=== PATIENT | male | born 1965 | race Caucasian/White ===

== ENCOUNTER 2024-01-28 23:53 | Emergency (ER) | payer OTHER ==
[~2024-01-28] VITALS: Ht 180.3 cm; Wt 76.7 kg
[~2024-01-28 23:53] MED LIST: ALDACTONE100 MG PO; CIPRO500 MG PO; IBUPROFEN600 MG PO; LASIX80 MG PO; MOBIC7.5 MG PO; NORCO 5-325 TA1 EACH PO
--- OUTSIDE RECORDS SUMMARY | 2024-01-29 | XMS ---
PreManage Notification: KIAH MCDUFFIE Security Riprap Placing Supervisor Events No recent Security Events currently on file CRITERIA MET - [facility] - 2 Visits in 30 Days CARE PROVIDERS -, [facility] Dentist: Automation Tester Current [place] PHONE: [phone] Zachery has no Care Guidelines for this patient. Mesha VISIT COUNT (12 MO.) 2 [facility] TOTAL 2 NOTE: Visits indicate total known visits. ED/UCC VISIT TRACKING (12 MO.) 01/28/2024 23:54 KINSEY Youngblood OR TYPE: Emergency COMPLAINT: - ABDOMINAL PAIN 01/22/2024 12:09 KINSEY Youngblood OR TYPE: Emergency COMPLAINT: - ABDOMINAL PAIN DIAGNOSES: - Allergy status to narcotic agent - Essential (primary) hypertension - Hepatic failure, unspecified without coma - Nausea with vomiting, unspecified - Nicotine dependence, unspecified, uncomplicated - Other prison (current) drug therapy - Unspecified abdominal pain - Unspecified cirrhosis of liver - Unspecified viral 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 coma INPATIENT VISIT TRACKING (12 MO.) No inpatient visits to display in this time frame [email or web address]
[2024-01-29] MEDS ORDERED: ondansetron HCL 4 MG/2 ML VIAL IV ONE (00:30)
[2024-01-29] MEDS ORDERED: FAMOTIDINE 20 MG/ 2 ML VIAL IV ONE (00:30)
[2024-01-29] MEDS ORDERED: CEFTRIAXONE/SODIUM CHLORIDE 2 GM/100 ML PIGGYBACK IV ONE (00:30)
[2024-01-29] MEDS ORDERED: HYDROmorphone HCL 1 MG/ML SYR IV PRN (00:30)
[2024-01-29 01:33] LABS: EOSINOPHILS 3.8 % (0-6); HEMATOCRIT 36.9 % (35.0-50.0); HEMOGLOBIN 12.6 g/dL (12.0-18.0); LYMPHOCYTES 9.9 % (24-44); MCHC 34.2 g/dl (30-36); MCV 102.4 fl (81-99); MONOCYTES 14.5 % (0-12); NEUTROPHILS 70.8 % (39-80); PLATELET COUNT 140 K/uL (140-440); RDW 16.1 (10.5-15.0)
[2024-01-29 01:45] LABS: INR 1.44 (0.80-1.30); PROTIME 16.7 Sec (11.2-14.2)
[2024-01-29 01:50] LABS: ALBUMIN 1.9 g/dL (3.4-5.0); ALBUMIN/GLOBULIN RATIO 0.37 (1.1-2.4); ANION GAP 8.8 (7-21); BILIRUBIN, TOTAL 2.5 ng/dL (0.2-1.0); BUN/CREATININE RATIO 16.66 (6.0-28.6); CREATININE, SERUM 0.9 mg/dL (0.70-1.30); POTASSIUM 3.8 mmol/L (3.5-5.1)
[2024-01-29 01:55] LABS: LACTIC ACID, BLOOD 1.4 mmol/L (0.4-2.0)
[2024-01-29] MEDS ORDERED: FUROSEMIDE 40 MG/4 ML VIAL IV ONE (02:45)
[2024-01-29 02:47] LABS: BILIRUBIN, URINE POSITIVE (negative); BLOOD/HGB, URINE LARGE (Negative); KETONE, URINE NEGATIVE (Negative); LEUK ESTERASE, URINE NEGATIVE (negative); NITRITE, URINE NEGATIVE (negative); PH, URINE 6.5 (5-7)
[2024-01-29 03:01] LABS: BACTERIA, URINE NONE SEEN /hpf (negative); CASTS, URINE NONE SEEN \\lpf; CRYSTALS, URINE CALCIUM OXALATE 3+ (0-1+); EPITHELIAL CELLS, URINE 0 /lpf (0-1+)
[2024-01-29 03:02] LABS: COLLECTION TYPE, URINE CLEAN CATCH; REFLEX CULTURE, URINE No (No)
[2024-01-29] MEDS ORDERED: OXYCODONE HCL5 MG PO (03:22)
[2024-01-29] MEDS ORDERED: K-TAB ER20 MEQ PO (03:22)
[2024-01-29] MEDS ORDERED: AMOX TR-K CLV1 EAC1 PO (03:22)
[2024-01-29] MEDS ORDERED: ALDACTONE100 MG PO (03:22)
[2024-01-29] MEDS ORDERED: FUROSEMIDE80 MG PO (03:22)
[2024-01-29] MEDS ORDERED: CONSTULOSE10 GM/15 M PO (03:24)
[2024-01-29 03:53] VITALS: BP 152/93
== END 2024-01-29 03:54 | disposition home or self-care (01) ==
LOC: ED 23:53
PROVIDERS: Internal Medicine
DX: K72.10 Chronic hepatic failure without coma (principal); K70.31 Alcoholic cirrhosis of liver with ascites; J90 Pleural effusion, not elsewhere classified; B19.20 Unspecified viral 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 coma; I10 Essential (primary) hypertension; F17.200 Nicotine dependence, unspecified, uncomplicated; Z88.5 Allergy status to narcotic agent; Z79.899 Other long term (current) drug therapy
CPT/HCPCS: 36415; 71045; 71260; 74160; 74177; 80053; 81001; 82140; 83605; 83690; 85025; 85610; 87040; 99284-25; J0696; J1171; J1940; J2405; Q9967

== ENCOUNTER 2024-01-29 16:26 | Observation (INO) | payer OTHER ==
[~2024-01-29] VITALS: Ht 180.3 cm; Wt 68.4 kg
[~2024-01-29 16:26] MED LIST changes: +AMOX TR-K CLV1 EAC1 PO; +CONSTULOSE10 GM/15 M PO; +FUROSEMIDE80 MG PO; +K-TAB ER20 MEQ PO; +OXYCODONE HCL5 MG PO
--- OUTSIDE RECORDS SUMMARY | 2024-01-29 16:33 | XMS ---
PreManage Notification: KIAH MCDUFFIE Security Bakery Team Member Events No recent Security Events currently on file CRITERIA MET - [facility] - 2 Visits in 30 Days CARE PROVIDERS -, [facility] Dentist: Dot Etcher Current [place] PHONE: [phone] Zachery has no Care Guidelines for this patient. Mesha VISIT COUNT (12 MO.) 3 [facility] TOTAL 3 NOTE: Visits indicate total known visits. ED/C VISIT TRACKING (12 MO.) 01/29/2024 16:27 KINSEY Youngblood OR TYPE: Emergency COMPLAINT: - BACK PAIN 01/28/2024 23:54 KINSEY Youngblood OR TYPE: Emergency COMPLAINT: - ABDOMINAL PAIN 01/22/2024 12:09 KINSEY Youngblood OR TYPE: Emergency COMPLAINT: - ABDOMINAL PAIN DIAGNOSES: - Allergy status to narcotic agent - Essential (primary) hypertension - Hepatic failure, unspecified without coma - Nausea with vomiting, unspecified - Nicotine dependence, unspecified, uncomplicated - Other long term care phlebotomist (current) drug therapy - Unspecified abdominal pain - Unspecified cirrhosis of liver - Unspecified viral 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 coma INPATIENT VISIT TRACKING (12 MO.) No inpatient visits to display in this time frame [email or web address]
[2024-01-29] MEDS ORDERED: OXYCODONE HCL 5 MG TAB PO ONE (17:45)
[2024-01-29] MEDS ORDERED: ALBUMIN HUMAN 25% 100 ML BTL IV ONE (19:45)
[2024-01-29 20:34] LABS: BASOPHILS 1.1 % (0-2); HEMATOCRIT 40.5 % (35.0-50.0); HEMOGLOBIN 13.9 g/dL (12.0-18.0); MCH 35.1 (27-36); MCHC 34.2 g/dl (30-36); MCV 102.8 fl (81-99); NEUTROPHILS 73.9 % (39-80); PLATELET COUNT 156 K/uL (140-440); RBC 3.94 M/ul (4.3-5.7); RDW 16.3 (10.5-15.0)
[2024-01-29 20:49] LABS: ALBUMIN 2.1 g/dL (3.4-5.0); ALBUMIN/GLOBULIN RATIO 0.38 (1.1-2.4); ANION GAP 11.7 (7-21); BILIRUBIN, TOTAL 2.6 ng/dL (0.2-1.0); BUN/CREATININE RATIO 13.18 (6.0-28.6); CALCIUM 8.2 mg/dL (8.5-10.1); CREATININE, SERUM 0.91 mg/dL (0.70-1.30); POTASSIUM 3.7 mmol/L (3.5-5.1); PROTEIN, TOTAL 7.6 g/dL (6.4-8.2)
[2024-01-29] MEDS ORDERED: CEFTRIAXONE/SODIUM CHLORIDE 2 GM/100 ML PIGGYBACK IV ONE (21:00)
[2024-01-29] MEDS ORDERED: AZITHROMYCIN/DEXTROSE 500 MG/250 ML PIGGYBACK IV ONE (21:00)
[2024-01-29 21:12] LABS: INR 1.41 (0.80-1.30); PROTIME 16.4 Sec (11.2-14.2)
[2024-01-29] MEDS ORDERED: MAGNESIUM SULFATE 2 GM/50 ML BAG IV ONE (21:30)
[2024-01-29 21:48] LABS: BILIRUBIN, URINE POSITIVE (negative); BLOOD/HGB, URINE LARGE (Negative); KETONE, URINE NEGATIVE (Negative); LEUK ESTERASE, URINE NEGATIVE (negative); NITRITE, URINE NEGATIVE (negative)
[2024-01-29 22:03] LABS: CRYSTALS, URINE CALCIUM OXALATE 4+ (0-1+); EPITHELIAL CELLS, URINE 0 /lpf (0-1+)
[2024-01-29 22:04] LABS: BACTERIA, URINE NONE SEEN /hpf (negative); CASTS, URINE NONE SEEN \\lpf; COLLECTION TYPE, URINE CLEAN CATCH; REFLEX CULTURE, URINE No (No)
[2024-01-29] MEDS ORDERED: ondansetron HCL 4 MG/2 ML VIAL IV PRN (22:30)
[2024-01-29] MEDS ORDERED: HYDROmorphone HCL 1 MG/ML SYR IV PRN (22:30)
[2024-01-29] MEDS ORDERED: FUROSEMIDE 20 MG/2 ML VIAL IV ONE (22:45)
[2024-01-29 23:26] VITALS: BP 120/77
--- NOTE | 2024-01-29 23:30 | NUR ---
PT ADMITTED TO ROOM 114 VIA STRETCHER. PT REPORTS BEING TOO WEAK TO AMBULATE TO BED SO PT SHUFFLED SELF TO HOSPITAL BED. REPORTS PAIN TO RIGHT SIDE THORACENTESIS PUNCTURE SITE-EXTRUSION ENGINEER JUST ADMINISTERED IV PAIN MED BEFORE TRANSFER. VSS. 2L O2 N/C IN PLACE. LS DIM W/ CRACKLES TO RIGHT BASE. REPORTS SOB AT REST. HRR. BTA, LBM 01/28. VOIDS WNL BUT HAS SOME URGENCY. RAC IV WNL. PT INFORMED OF 1500cc FLUID RESTRICTION. BTA, ABD SLIGHTLY DISTENDED. BANDAID TO RIGHT BACK PUNCTURE SITE CDI. CALL LIGHT WITHIN REACH.
[2024-01-30] VITALS (9 sets, daily range): BP systolic 111–128; BP diastolic 74–89
--- NOTE | 2024-01-30 02:43 | NUR ---
PT SITTING EOB. REPORTS LOWER BACK PAIN-MEDICATED W/ PRN IV DILAUDID 0.5MG. URINAL EMPTIED FOR 1000cc CLEAR YELLOW URINE. CALL LIGHT WITHIN REACH.
--- NOTE | 2024-01-30 03:36 | NUR ---
PT APPEARS ASLEEP. CALL LIGHT WITHIN REACH.
[2024-01-30 06:06] LABS: BASOPHILS 0.8 % (0-2); EOSINOPHILS 2.9 % (0-6); HEMATOCRIT 34.8 % (35.0-50.0); LYMPHOCYTES 11.2 % (24-44); MCHC 34.3 g/dl (30-36); MONOCYTES 11.4 % (0-12); NEUTROPHILS 73.7 % (39-80); PLATELET COUNT 112 K/uL (140-440); RBC 3.42 M/ul (4.3-5.7)
[2024-01-30 06:21] LABS: ALBUMIN 2.1 g/dL (3.4-5.0); ALBUMIN/GLOBULIN RATIO 0.48 (1.1-2.4); ANION GAP 7.5 (7-21); BILIRUBIN, TOTAL 2.2 ng/dL (0.2-1.0); BUN/CREATININE RATIO 15.47 (6.0-28.6); CALCIUM 8.1 mg/dL (8.5-10.1); CREATININE, SERUM 0.84 mg/dL (0.70-1.30); MAGNESIUM 1.9 mg/dL (1.8-2.4); PHOSPHORUS, INORGANIC 3.3 mg/dL (2.5-4.9); POTASSIUM 3.5 mmol/L (3.5-5.1); PROTEIN, TOTAL 6.5 g/dL (6.4-8.2)
--- NOTE | 2024-01-30 06:34 | NUR ---
PT AWAKE, REPORTS NOT SLEEPING WELL OVERNIGHT. PT GIVEN REMOTE TO WATCH TV. QUIET ENVIRONMENT PROMOTED. CALL LIGHT WITHIN REACH.
--- NOTE | 2024-01-30 06:59 | NUR ---
Pt report received from CHRISTIE Morel. Pt is resting supine in bed, A&O watching television. Reports discomfort in his back and chest with deep breathing. Requests a cup of hot tea. Side rails up x4, call light in reach, white board updated.
[2024-01-30] MEDS ORDERED: SPIRONOLACTONE 25 MG TAB PO SCH ×3 (09:00→21:00)
[2024-01-30] MEDS ORDERED: FUROSEMIDE 40 MG TAB PO SCH (09:00)
[2024-01-30] MEDS ORDERED: AZITHROMYCIN 500 MG in DEXTROSE 5% 250 ML IV SCH ×2 (09:00→21:00)
[2024-01-30] MEDS ORDERED: LACTULOSE 20 GM/30 ML CUP PO SCH (09:00)
[2024-01-30] MEDS ORDERED: POTASSIUM CHLORIDE 10 MEQ TABCR PO SCH (09:00)
[2024-01-30] MEDS ORDERED: CEFTRIAXONE/SODIUM CHLORIDE 2 GM/100 ML PIGGYBACK IV SCH ×2 (09:00→21:00)
--- NOTE | 2024-01-30 10:00 | NUR ---
PATIENT TOOK A SHOWER THIS MORNING HE ALSO DID ORAL CARE. NEW GOWN. BROUGHT TWO WARM BLANKETS. PATIENT WENT BACK TO BED.
[2024-01-30] MEDS ORDERED: ondansetron HCL 4 MG/2 ML VIAL IV PRN (11:15)
[2024-01-30] MEDS ORDERED: PHARMACY RENAL DOSE ADJUSTMENT 1 DOSE MISC PO SCH (12:00)
[2024-01-30] MEDS ORDERED: HYDROmorphone HCL 1 MG/ML SYR IV PRN (12:45)
[2024-01-30] MEDS ORDERED: FUROSEMIDE 40 MG/4 ML VIAL IV SCH (13:00)
--- NOTE | 2024-01-30 13:00 | NUR ---
Spoke with Kavita, his friend Carmela that adopted his son, and son. Dr. Gaitan in the room spoke with pt about his understanding of his liver failure. Pt speaks about his pcp and recent hospital admission in [place]. Pt states he would like to get Hepatitis treatment meds as he believes this will help him. Dr. guy kumaruss his fluid build up his thoracentesis in our ER. He discussed with pt fluid is already returning. Pt states he will see Dr. Piedra on Feb 06 to establish care. Plan was discussed for pt to see Dr. Piedra and discuss what he feels is the best plan moving forward. We discussed palliative care through [facility] if pt wants to cont. treatement or comfort care with Hospice if he wants to stop. Pts son (16 yo), patient, and friend are all very tearful. Friends are ready willing for pt to return home tomorrow. Discussed their will be dc instructions for Carmela to follow.
--- NOTE | 2024-01-30 13:15 | NUR ---
Dr. Gaitan and cone sewer Gricelda in with pt and pt's son and son's adoptive mother to discuss plan of care. Pt up to void in toilet, unmeasured, x2 while discussion on going. Pt and family tearful at times. SPO2 while patient ambulating back from toilet was 91% on room air.
--- NOTE | 2024-01-30 13:30 | NUR ---
UR CLINICAL REVIEW: [facility] OBS CRITERIA FOR PLEURAL EFFUSION MODA EOCCO OBS 01/30/24 @ 0943 EMAIL SENT TO ADMISSIONS TO UPDATE REG NO AUTH REQUIRED FOR OBS VISITS PER GUIDELINES DISCHARGE TO HOME WHEN STABLE ANTICAPATE DC IN 24 HRS
--- NOTE | 2024-01-30 15:09 | NUR ---
Advised by Aisha Joshi, that the pt is in the bathroom, currently, and states he is nauseous.
--- NOTE | 2024-01-30 16:35 | NUR ---
RECEIVED REPORT FROM BEENA. PT APPEARS TO BE SLEEPING COMFORTABLY. RESPIRATIONS EVEN AND REGULAR. CALL LIGHT WITHIN REACH.
--- NOTE | 2024-01-30 16:47 | NUR ---
medications reconciled
--- NOTE | 2024-01-30 17:34 | NUR ---
PT IS SITTING UP AT EOB GETTING READY TO EAT DINNER. PT IS A/O, SPEECH CLEAR, RESPIRATIONS EVEN AND REGULAR. PT DENIES NEEDS ATT. CALL LIGHT WITHIN REACH.
--- NOTE | 2024-01-30 19:19 | NUR ---
RECEIVED REPORT FROM CHRISTIE LEMUS. PT RESTING IN BED, WANTS TO USE BR INSTEAD OF URINAL. HAT PLACED IN TOILET FOR I&O'S. NO OTHER NEEDS IDENTIFIED. CALL LIGHT WITHIN REACH.
--- NOTE | 2024-01-30 20:00 | NUR ---
PT RESTING IN BED. FAMILY AT BEDSIDE. REPORTS RIGHT CHEST AND LEFT BACK PAIN, MEDICATED W/ PRN IV DILAUDID PER EMAR. VSS. SOME SOB, LEGGETT. LS DIM UPPERS, CRACKLES BASES. ON RA. HRR, TELE IN PLACE. BTA, REPORTS FEELING CONSTIPATED, OFFERED MED OR OATMEAL, PT DECLINED AT THIS TIME. USING BR FOR VOIDING, REPORTS URGENCY. BLE 1+ EDEMA, BASELINE N/T. SKIN DRY AND FLAKY, LOTION PROVIDED. RAC IV WNL. CALL LIGHT WITHIN REACH.
[2024-01-30] MEDS ORDERED: POLYETHYLENE GLYCOL 3350 1 PACKET PO SCH (21:00)
[2024-01-30] MEDS ORDERED: SENNOSIDES/DOCUSATE 1 EA TAB PO SCH (21:00)
--- NOTE | 2024-01-30 21:08 | NUR ---
PT MEDICATED W/ PRN MIRALAX AND SENNA. ON PHONE W/ FRIENDS. DENIES ANY OTHER NEEDS.
--- NOTE | 2024-01-30 22:58 | NUR ---
PT AWAKE, VISITING W/ SON AT BEDSIDE. DENIES ANY NEEDS.
[2024-01-31] VITALS (10 sets, daily range): BP systolic 101–133; BP diastolic 61–80
--- NOTE | 2024-01-31 00:44 | NUR ---
PT MEDICATED W/ PRN IV DILAUDID FOR C/O HEADACHE. PT'S SON ASLEEP AT BEDSIDE. NO OTHER NEEDS IDENTIFIED.
--- NOTE | 2024-01-31 01:04 | NUR ---
GUM SPRAYER OBTAINED VITALS AND I&O. PT STATES NO NEEDS AT THIS TIME. CALL LIGHT WITHIN REACH.
--- NOTE | 2024-01-31 02:58 | NUR ---
PT SLEEPING SOUNDLY ON COUCH IN ROOM. FAMILY ASLEEP IN RECLINER.
--- NOTE | 2024-01-31 05:01 | NUR ---
PT SLEEPING SOUNDLY. APPEARS COMFORTABLE. CALL LIGHT WITHIN REACH.
[2024-01-31 05:22] LABS: EOSINOPHILS 6.3 % (0-6); HEMATOCRIT 34.9 % (35.0-50.0); HEMOGLOBIN 12.2 g/dL (12.0-18.0); LYMPHOCYTES 10.7 % (24-44); MCH 35.5 (27-36); MCHC 34.9 g/dl (30-36); MCV 101.7 fl (81-99); MONOCYTES 15.2 % (0-12); NEUTROPHILS 66.8 % (39-80); PLATELET COUNT 125 K/uL (140-440); RBC 3.43 M/ul (4.3-5.7); RDW 15.7 (10.5-15.0)
[2024-01-31 05:31] LABS: INR 1.51 (0.80-1.30); PARTIAL THROMBOPLASTIN TIME 32.1 Sec (22.9-41.3); PROTIME 17.4 Sec (11.2-14.2)
[2024-01-31 05:34] LABS: MAGNESIUM 1.4 mg/dL (1.8-2.4); PHOSPHORUS, INORGANIC 3.6 mg/dL (2.5-4.9)
--- NOTE | 2024-01-31 06:14 | NUR ---
COMPOSITE MECHANIC OBTAINED VITALS AND I&O. PT STATES NO NEEDS AT THIS TIME. CALL LIGHT WITHIN REACH.
--- NOTE | 2024-01-31 06:50 | NUR ---
PT SOUND ASLEEP. APPEARS COMFORTABLE. FAMILY ASLEEP AT BEDSIDE.
--- NOTE | 2024-01-31 07:02 | NUR ---
Pt report received from CHRISTIE Morel. Pt is up to toilet. Requests a clean gown which was provided. Pt requests a cup of hot water and tea which was provided and pt was warned that the water is extremely hot. He verbalized understanding. Pt Assessment done at this time. Call light in reach, white board updated.
[2024-01-31 07:59] LABS: ALBUMIN 2.2 g/dL (3.4-5.0); ALBUMIN/GLOBULIN RATIO 0.49 (1.1-2.4); ANION GAP 6.5 (7-21); BILIRUBIN, TOTAL 2.8 ng/dL (0.2-1.0); BUN/CREATININE RATIO 13.33 (6.0-28.6); CALCIUM 8.2 mg/dL (8.5-10.1); CREATININE, SERUM 0.9 mg/dL (0.70-1.30); POTASSIUM 3.5 mmol/L (3.5-5.1); PROTEIN, TOTAL 6.7 g/dL (6.4-8.2)
[2024-01-31] MEDS ORDERED: MAGNESIUM SULFATE 2 GM/50 ML BAG IV SCH (09:00)
--- NOTE | 2024-01-31 09:05 | NUR ---
In with pt for med administration per emar. Pt up in bathroom. All meds administered except for mag sulfate as the pt is requesting to shower before he is connected to the IV Pole. IV site covered with zip lock bag and Tele removed (ccu notified) while pt showering. Instructed pt to use his call light when he is finished so I can administered his IV meds. He verbalized understanding. Pt's son in room.
--- NOTE | 2024-01-31 09:29 | NUR ---
While pt up in shower, he states he is experiencing nausea, but no vomiting. States he feels it's from the PO meds.
--- NOTE | 2024-01-31 10:23 | NUR ---
Pt back to bed after shower. Tele leads re-applied. IV patent, MgSO4 started via IV pump. pt son in room. Call light in reach.
[2024-01-31 18:26] LABS: AMPHETAMINES, URINE NEGATIVE (NEGATIVE); BARBITURATES, URINE NEGATIVE (NEGATIVE); BENZODIAZEPINE, URINE NEGATIVE (NEGATIVE); BUPRENORPHINE, URINE NEGATIVE (NEGATIVE); CANNABINOID, URINE POSITIVE (NEGATIVE); COCAINE, URINE NEGATIVE (NEGATIVE); ECSTASY, URINE NEGATIVE (NEGATIVE); FENTANYL, URINE NEGATIVE (NEGATIVE); METHADONE, URINE NEGATIVE (NEGATIVE); OPIATES, URINE NEGATIVE (NEGATIVE); OXYCODONE, URINE POSITIVE (NEGATIVE); PHENCYCLIDINE, URINE NEGATIVE (NEGATIVE)
--- NOTE | 2024-01-31 19:41 | NUR ---
RECEIVED REPORT FROM CHRISTIE HARGROVE. PT AWAKE, SNACKING. PT'S SON AT BEDSIDE. DENIES ANY FURTHER NEEDS.
--- NOTE | 2024-01-31 20:00 | NUR ---
PT RESTING IN BED, TALKING ON PHONE W/ FRIEND. SON AT BEDSIDE. VSS. REPORTS LOWER BACK PAIN 5/10, DECLINED OFFER OF PAIN MED R/T CURRENT CONSTIPATION. PT ON RA, LSC DIM TO RIGHT POST BASE. OCC NPC NOTED. HRR, TELE IN PLACE. 1+ BLE EDEMA. BTA, ABD DISTENDED AND FIRM. FEELS CONSTIPATED, BOWEL MEDS ADMINISTERED PER EMAR. LBM 01/28. N/T TO BLE UNCHANGED. RAC SL WNL. IND TO BR TO VOID. CALL LIGHT WITHIN REACH.
--- NOTE | 2024-01-31 22:00 | NUR ---
PT ASLEEP, APPEARS COMFORTABLE. SON AT BEDSIDE.
--- NOTE | 2024-01-31 22:02 | NUR ---
PT INQUIRED ABOUT FLUID RESTRICTION-INFORMED FLUID RESTRICTION STILL IN PLACE. REMINDED PT OF UPCOMING NPO STATUS AT MIDNIGHT. NO FURTHER NEEDS IDENTIFIED.
[2024-02-01] VITALS (9 sets, daily range): BP systolic 105–123; BP diastolic 74–79
--- NOTE | 2024-02-01 00:17 | NUR ---
PT SLEEPING, SON AT BEDSIDE. PT IS NOW NPO FOR PROCEDURE TOMORROW.
--- NOTE | 2024-02-01 01:57 | NUR ---
REGISTERED NURSE AMBULATORY OBTAINED VITALS AND OUTPUT. PT STATES NO NEEDS AT THIS TIME. CALL LIGHT WITHIN REACH.
--- NOTE | 2024-02-01 01:57 | NUR ---
PT SLEEPING SOUNDLY. FAMILY ASLEEP AT BEDSIDE.
--- NOTE | 2024-02-01 04:12 | NUR ---
PT SLEEPING SOUNDLY. APPEARS COMFORTABLE. CALL LIGHT WITHIN REACH.
--- NOTE | 2024-02-01 06:53 | NUR ---
MUD GRINDER OBTAINED VITALS AND OUTPUT. PT STATES NO NEEDS AT THIS TIME. CALL LIGHT WITHIN REACH.
--- NOTE | 2024-02-01 07:02 | NUR ---
Pt report received from CHRISTIE Morel. Pt is in bed, resting on his right side, television on, A&O. Pt asks when he is to have the abdominal u/s. Advised pt that I will see if I can find out. Call light in reach, pt denies any needs at this time. White board updated.
--- NOTE | 2024-02-01 07:44 | NUR ---
PC to Dr. Martinez to seek clarification for the type of abdominal u/s he would like for this pt (limited or complete). Dr. Martinez advised the limited u/s would suffice as he is looking for ascites. Requested v/o to change IV pain meds to PO. Obtained v/o to change IV dilaudid to PO Dilaudid 2 to 4mg Q6P. Order repeated back.
[2024-02-01] MEDS ORDERED: HYDROmorphone HCL 2 MG TAB PO PRN (08:00)
--- NOTE | 2024-02-01 08:26 | NUR ---
PATIENT IN BED AT THIS TIME. DIESEL POWERPLANT MECHANIC HELPER WENT INTO PATIENTS ROOM FOR HOURLY ROUNDS. ULTRASOUND COMING INTO ROOM AT THIS TIME. CALL LIGHT WITHIN REACH, NO FURTHER NEEDS AT THIS TIME.
[2024-02-01 09:02] LABS: BASOPHILS 0.6 % (0-2); EOSINOPHILS 3.9 % (0-6); HEMOGLOBIN 13.5 g/dL (12.0-18.0); LYMPHOCYTES 8.7 % (24-44); MCHC 34.6 g/dl (30-36); MONOCYTES 11.6 % (0-12); NEUTROPHILS 75.2 % (39-80); PLATELET COUNT 144 K/uL (140-440); RBC 3.87 M/ul (4.3-5.7); RDW 15.6 (10.5-15.0)
[2024-02-01 09:11] LABS: BUN/CREATININE RATIO 14.94 (6.0-28.6); CALCIUM 8.7 mg/dL (8.5-10.1); CREATININE, SERUM 0.87 mg/dL (0.70-1.30); MAGNESIUM 1.6 mg/dL (1.8-2.4)
--- NOTE | 2024-02-01 10:32 | NUR ---
PATIENT IN BED AT THIS TIME. OCCUPATIONAL HEALTH NURSING DIRECTOR CHARTED VITALS AND I&O'S. CALL LIGHT WITHIN REACH, NO FURTHER NEEDS AT THIS TIME.
[2024-02-01] MEDS ORDERED: MAGNESIUM SULFATE 2 GM/50 ML BAG IV ONE (12:15)
[2024-02-01] MEDS ORDERED: AZITHROMYCIN500 MG PO (12:23)
--- NOTE | 2024-02-01 14:00 | NUR ---
In with pt for review of discharge paperwork. IV DC'd at this time. Pt's son arrived. Reviewed discharge paperwork and education with pt and pt's son, questions answered, pt signed discharge form. Pt VSS, pt requested to take a shower prior to leaving. Encouraged pt to use call light when he is ready to be taken to his ride.
--- NOTE | 2024-02-01 14:03 | NUR ---
PATIENT IN BED AT THIS TIME. SOCIAL WELFARE CLERK CHARTED VITALS AND I&O'S. CALL LIGHT WITHIN REACH, NO FURTHER NEEDS AT THIS TIME.
[2024-02-23] MEDS ORDERED: AMOX TR-K CLV1 EAC1 PO (06:31)
== END 2024-02-01 15:00 | disposition home or self-care (01) ==
LOC: ED 16:26 → MS 16:28
PROVIDERS: Emergency Medicine; Family Medicine; Student in an Organized Health Care Education/Training Program; ADMIT Family Medicine; ATTEND Family Medicine
DX: J96.01 Acute respiratory failure with hypoxia (principal); J90 Pleural effusion, not elsewhere classified; J18.9 Pneumonia, unspecified organism; K72.10 Chronic hepatic failure without coma; E83.42 Hypomagnesemia; I10 Essential (primary) hypertension; Z87.891 Personal history of nicotine dependence; Z79.899 Other long term (current) drug therapy; Z88.5 Allergy status to narcotic agent
CPT/HCPCS: 32554; 36415; 71045; 71046; 76604; 76705; 80048; 80053; 80307; 81001; 83605; 83735; 84100; 85025; 85610; 85730; 87040; 87070; 87205; 94760; 96366; 96375; 96376; 99285-25; A9270; G0378; J0456; J0696; J1171; J1940; J2405; J3475; P9047

== ENCOUNTER 2024-02-09 10:57 | Emergency (ER) | payer OTHER ==
[~2024-02-09] VITALS: Ht 180.3 cm; Wt 71.7 kg
[~2024-02-09 10:57] MED LIST changes: +AZITHROMYCIN500 MG PO
--- OUTSIDE RECORDS SUMMARY | 2024-02-09 11:01 | XMS ---
PreManage Notification: KIAH MCDUFFIE Security Head Teacher Events No recent Security Events currently on file CRITERIA MET - [facility] - 2 Visits in 30 Days CARE PROVIDERS -, [facility] Dentist: Elementary Science Teacher Current [place] PHONE: [phone] Zachery has no Care Guidelines for this patient. Mesha VISIT COUNT (12 MO.) [address] [place] [address] TOTAL 4 NOTE: Visits indicate total known visits. ED/UCC VISIT TRACKING (12 MO.) 02/09/2024 10:58 KINSEY Youngblood OR TYPE: Emergency COMPLAINT: - SOB,STOMACH PAIN 01/29/2024 16:27 KINSEY Youngblood OR TYPE: Emergency COMPLAINT: - BACK PAIN 01/28/2024 23:54 KINSEY Youngblood OR TYPE: Emergency COMPLAINT: - ABDOMINAL PAIN DIAGNOSES: - Alcoholic cirrhosis of liver with ascites - Allergy status to narcotic agent - Chronic hepatic failure without coma - Essential (primary) hypertension - Nicotine dependence, unspecified, uncomplicated - Other [facility] ([facility] drug therapy - Pleural effusion, not elsewhere classified - Unspecified abdominal pain - Unspecified viral 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 coma 01/22/2024 12:09 KINSEY Youngblood OR TYPE: Emergency COMPLAINT: - ABDOMINAL PAIN DIAGNOSES: - Allergy status to narcotic agent - Essential (primary) hypertension - Hepatic failure, unspecified without coma - Nausea with vomiting, unspecified - Nicotine dependence, unspecified, uncomplicated - Other watermelon inspector (current) drug therapy - Unspecified abdominal pain - Unspecified cirrhosis of liver - Unspecified viral 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 coma INPATIENT VISIT TRACKING (12 MO.) 01/29/2024 16:28 KINSEY Youngblood OR TYPE: Observation COMPLAINT: - HYPOXIC RESPIRATORY FAILURE, ESLD, HYPOMAGNESEMIA [email or web address]
[2024-02-09] MEDS ORDERED: LACTULOSE10 GM/151 PO (11:17)
[2024-02-09 11:37] LABS: BASOPHILS 0.7 % (0-2); HEMATOCRIT 39.1 % (35.0-50.0); HEMOGLOBIN 13.6 g/dL (12.0-18.0); MCH 35.1 (27-36); MCHC 34.7 g/dl (30-36); MCV 101.2 fl (81-99); MONOCYTES 11.2 % (0-12); NEUTROPHILS 69.1 % (39-80); PLATELET COUNT 137 K/uL (140-440); RBC 3.87 M/ul (4.3-5.7); RDW 15.1 (10.5-15.0)
[2024-02-09 11:48] LABS: ALBUMIN 2.1 g/dL (3.4-5.0); ALBUMIN/GLOBULIN RATIO 0.4 (1.1-2.4); ANION GAP 10.6 (7-21); BILIRUBIN, TOTAL 2.6 ng/dL (0.2-1.0); BUN/CREATININE RATIO 19.27 (6.0-28.6); CALCIUM 8.6 mg/dL (8.5-10.1); CREATININE, SERUM 0.83 mg/dL (0.70-1.30); MAGNESIUM 1.6 mg/dL (1.8-2.4); POTASSIUM 4.6 mmol/L (3.5-5.1); PROTEIN, TOTAL 7.4 g/dL (6.4-8.2)
[2024-02-09 12:00] LABS: BILIRUBIN, URINE NEGATIVE (negative); BLOOD/HGB, URINE LARGE (Negative); KETONE, URINE NEGATIVE (Negative); LEUK ESTERASE, URINE NEGATIVE (negative); NITRITE, URINE NEGATIVE (negative)
[2024-02-09 12:05] LABS: EPITHELIAL CELLS, URINE 0 /lpf (0-1+)
[2024-02-09 12:07] LABS: CRYSTALS, URINE CALCIUM OXALATE 2+ (0-1+)
[2024-02-09 12:08] LABS: BACTERIA, URINE NONE SEEN /hpf (negative); CASTS, URINE NONE SEEN \\lpf; COLLECTION TYPE, URINE CLEAN CATCH; REFLEX CULTURE, URINE No (No)
[2024-02-09 12:50] LABS: INR 1.33 (0.80-1.30); PROTIME 16.1 Sec (11.2-14.2)
[2024-02-09 15:19] VITALS: BP 115/87
--- NOTE | 2024-02-09 19:52 | EKG ---
[facility] [address] [place], [place] [address] Signed Normal sinus rhythm Normal ECG No previous ECGs available Confirmed by Lisa Michaels MD ([id number]) on 02/09/2024 7:52:13 PM Electronically Signed By: LISA MICHAELS MD 02/09/241951 PATIENT NAME: KIAH MCDUFFIE Electrocardiogram DATE OF : 63 PHYSICIAN: LISA MICHAELS MD REPORT #: [id number] REPORT IS CONFIDENTIAL AND NOT TO BE RELEASED WITHOUT AUTHORIZATION
== END 2024-02-09 15:19 | disposition home or self-care (01) ==
LOC: ED 10:57
PROVIDERS: Emergency Medicine
DX: R10.9 Unspecified abdominal pain (principal); K80.20 Calculus of gallbladder without cholecystitis without obstruction; J90 Pleural effusion, not elsewhere classified; K72.10 Chronic hepatic failure without coma; I10 Essential (primary) hypertension; F17.200 Nicotine dependence, unspecified, uncomplicated; Z88.5 Allergy status to narcotic agent; Z79.899 Other long term (current) drug therapy
CPT/HCPCS: 36415; 71260; 74177; 80053; 81001; 83690; 83735; 83880; 84484; 85025; 85610; 93005; 93010; 99285-25; Q9967

== ENCOUNTER 2024-02-17 09:45 | Emergency (ER) | payer OTHER ==
[~2024-02-17] VITALS: Ht 180.3 cm; Wt 78.2 kg
[~2024-02-17 09:45] MED LIST changes: +LACTULOSE10 GM/151 PO
--- OUTSIDE RECORDS SUMMARY | 2024-02-17 09:46 | XMS ---
PreManage Notification: KIAH MCDUFFIE Security Dry Man Events No recent Security Events currently on file CRITERIA MET - [facility] - 2 Visits in 30 Days CARE PROVIDERS -, [facility] Dentist: Spine Nurse Current [place] PHONE: [phone] Zachery has no Care Guidelines for this patient. Mesha VISIT COUNT (12 MO.) [address] [place] [address] TOTAL 5 NOTE: Visits indicate total known visits. ED/C VISIT TRACKING (12 MO.) 02/17/2024 09:45 KINSEY Youngblood OR TYPE: Emergency COMPLAINT: - TROUBLE BREATHING 02/09/2024 10:58 KINSEY Younbglood OR TYPE: Emergency COMPLAINT: - SOB,STOMACH PAIN DIAGNOSES: - Allergy status to narcotic agent - Calculus of gallbladder without cholecystitis without obstruction - Chronic hepatic failure without coma - Essential (primary) hypertension - Nicotine dependence, unspecified, uncomplicated - Other [facility] (current) drug therapy - Pleural effusion, not elsewhere classified - Unspecified abdominal pain 01/29/2024 16:27 KINSEY Youngblood OR TYPE: Emergency COMPLAINT: - BACK PAIN 01/28/2024 23:54 KINSEY Youngblood OR TYPE: Emergency COMPLAINT: - ABDOMINAL PAIN DIAGNOSES: - Alcoholic cirrhosis of liver with ascites - Allergy status to narcotic agent - Chronic hepatic failure without coma - Essential (primary) hypertension - Nicotine dependence, unspecified, uncomplicated - Other [facility] (current) drug therapy - Pleural effusion, not elsewhere classified - Unspecified abdominal pain - Unspecified viral 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 coma 01/22/2024 12:09 KINSEY Youngblood OR TYPE: Emergency COMPLAINT: - ABDOMINAL PAIN DIAGNOSES: - Allergy status to narcotic agent - Essential (primary) hypertension - Hepatic failure, unspecified without coma - Nausea with vomiting, unspecified - Nicotine dependence, unspecified, uncomplicated - Other superintendent marine oil terminal (current) drug therapy - Unspecified abdominal pain - Unspecified cirrhosis of liver - Unspecified viral 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 coma INPATIENT VISIT TRACKING (12 MO.) 01/29/2024 16:28 KINSEY Youngblood OR TYPE: Observation COMPLAINT: - HYPOXIC RESPIRATORY FAILURE, ESLD, HYPOMAGNESEMIA DIAGNOSES: - Acute respiratory failure with hypoxia - Allergy status to narcotic agent - Chronic hepatic failure without coma - Essential (primary) hypertension - Hypomagnesemia - Nicotine dependence, unspecified, uncomplicated - Other superintendent marine oil terminal (current) drug therapy - Personal history of nicotine dependence - Pleural effusion, not elsewhere classified - Pneumonia, unspecified organism [email or web address]
[2024-02-17] MEDS ORDERED: methylPREDNISolone SOD SUCC 125 MG/2 ML VIAL IV ONE (10:15)
[2024-02-17] MEDS ORDERED: SPIRONOLACTONE 25 MG TAB PO ONE (10:15)
[2024-02-17] MEDS ORDERED: FUROSEMIDE 40 MG/4 ML VIAL IV ONE (10:15)
[2024-02-17] MEDS ORDERED: ALBUTEROL/IPRATROPIUM 3 ML NEB INH ONE (10:15)
[2024-02-17 11:27] LABS: INFLUENZA B NAA NEGATIVE (NEGATIVE); RESPIRATORY SYNCYTIAL VIR NAA NEGATIVE (NEGATIVE)
[2024-02-17] MEDS ORDERED: FUROSEMIDE 40 MG TAB PO ONE (11:30)
[2024-02-17] MEDS ORDERED: predniSONE 20 MG TAB PO ONE (11:30)
[2024-02-17 11:42] LABS: ALBUMIN/GLOBULIN RATIO 0.38 (1.1-2.4); ANION GAP 7.2 (7-21); BILIRUBIN, TOTAL 2.3 ng/dL (0.2-1.0); BUN/CREATININE RATIO 16.25 (6.0-28.6); CREATININE, SERUM 0.8 mg/dL (0.70-1.30); MAGNESIUM 1.7 mg/dL (1.8-2.4); POTASSIUM 4.2 mmol/L (3.5-5.1); PROTEIN, TOTAL 7.3 g/dL (6.4-8.2)
[2024-02-17 11:47] LABS: CALCIUM 8.3 mg/dL (8.5-10.1)
[2024-02-17 11:49] LABS: BASOPHILS 0.9 % (0-2); EOSINOPHILS 8.6 % (0-6); HEMATOCRIT 40.5 % (35.0-50.0); HEMOGLOBIN 14.2 g/dL (12.0-18.0); LYMPHOCYTES 16.7 % (24-44); MCH 35.6 (27-36); MCV 101.6 fl (81-99); MONOCYTES 14.4 % (0-12); NEUTROPHILS 59.4 % (39-80); PLATELET COUNT 100 K/uL (140-440); RBC 3.98 M/ul (4.3-5.7); RDW 15.3 (10.5-15.0)
[2024-02-17] MEDS ORDERED: VENTOLIN HFA18 GM INH (12:25)
[2024-02-17] MEDS ORDERED: PREDNISONE20 MG PO (12:25)
[2024-02-17 12:30] VITALS: BP 124/83
== END 2024-02-17 12:30 | disposition home or self-care (01) ==
LOC: ED 09:45
PROVIDERS: Emergency Medicine
DX: R06.02 Shortness of breath (principal); K72.10 Chronic hepatic failure without coma; J90 Pleural effusion, not elsewhere classified; J98.9 Respiratory disorder, unspecified; I10 Essential (primary) hypertension; F17.200 Nicotine dependence, unspecified, uncomplicated; Z88.5 Allergy status to narcotic agent; Z79.899 Other long term (current) drug therapy; Z11.52 Encounter for screening for COVID-19
CPT/HCPCS: 36415; 71045; 80053; 82140; 83735; 85025; 87502; 94640; 99285-25; J7512; U0002

== ENCOUNTER 2024-02-22 20:49 | Emergency (ER) | payer OTHER ==
[~2024-02-22] VITALS: Ht 180.3 cm; Wt 78.4 kg
[~2024-02-22 20:49] MED LIST changes: +PREDNISONE20 MG PO; +VENTOLIN HFA18 GM INH
--- OUTSIDE RECORDS SUMMARY | 2024-02-22 20:56 | XMS ---
PreManage Notification: KIAH MCDUFFIE Security Picture Engraver Events No recent Security Events currently on file CRITERIA MET - 6 ED Visits in 6 Months - [facility] - 2 Visits in 30 Days CARE PROVIDERS -, [facility] Dentist: Sander Machine Current [place] PHONE: [phone] Zachery has no Care Guidelines for this patient. Mesha VISIT COUNT (12 MO.) 6 [facility] TOTAL 6 NOTE: Visits indicate total known visits. ED/UCC VISIT TRACKING (12 MO.) 02/22/2024 20:49 KINSEY Youngblood OR TYPE: Emergency COMPLAINT: - DIFFICULTY BREATHING 02/17/2024 09:45 KINSEY Youngblood OR TYPE: Emergency COMPLAINT: - TROUBLE BREATHING DIAGNOSES: - Allergy status to narcotic agent - Chronic hepatic failure without coma - Encounter for screening for COVID-19 - Essential (primary) hypertension - Nicotine dependence, unspecified, uncomplicated - Other long term care administrator (current) drug therapy - Pleural effusion, not elsewhere classified - Respiratory disorder, unspecified - Shortness of breath 02/09/2024 10:58 KINSEY Youngblood OR TYPE: Emergency COMPLAINT: - SOB,STOMACH PAIN DIAGNOSES: - Allergy status to narcotic agent - Calculus of gallbladder without cholecystitis without obstruction - Chronic hepatic failure without coma - Essential (primary) hypertension - Nicotine dependence, unspecified, uncomplicated - Other [facility] (current) drug therapy - Pleural effusion, not [...] - Nicotine dependence, unspecified, uncomplicated - Other [facility] (current) drug therapy - Pleural effusion, not [...] unspecified, uncomplicated - Other long term care administrator (current) drug therapy - Unspecified abdominal pain [...] unspecified, uncomplicated - Other long term care administrator (current) drug therapy - Personal history of nicotine dependence - Pleural effusion, not elsewhere classified - Pneumonia, unspecified organism [email or web address]
[2024-02-22 21:49] LABS: BASOPHILS 0.4 % (0-2); EOSINOPHILS 11.9 % (0-6); HEMATOCRIT 38.3 % (35.0-50.0); HEMOGLOBIN 13.1 g/dL (12.0-18.0); LYMPHOCYTES 11.5 % (24-44); MCH 34.8 (27-36); MCHC 34.1 g/dl (30-36); MONOCYTES 13.3 % (0-12); NEUTROPHILS 62.9 % (39-80); PLATELET COUNT 106 K/uL (140-440); RBC 3.75 M/ul (4.3-5.7); RDW 15.4 (10.5-15.0)
[2024-02-22 22:11] LABS: ALBUMIN 1.8 g/dL (3.4-5.0); ALBUMIN/GLOBULIN RATIO 0.39 (1.1-2.4); ANION GAP 10.7 (7-21); BUN/CREATININE RATIO 12.5 (6.0-28.6); CALCIUM 8.2 mg/dL (8.5-10.1); CREATININE, SERUM 0.8 mg/dL (0.70-1.30); POTASSIUM 3.7 mmol/L (3.5-5.1); PROTEIN, TOTAL 6.4 g/dL (6.4-8.2)
[2024-02-22 22:14] LABS: INFLUENZA B NAA NEGATIVE (NEGATIVE); RESPIRATORY SYNCYTIAL VIR NAA NEGATIVE (NEGATIVE)
[2024-02-22] MEDS ORDERED: SPIRONOLACTONE 25 MG TAB PO ONE (23:15)
[2024-02-22] MEDS ORDERED: FUROSEMIDE 40 MG TAB PO ONE (23:15)
[2024-02-22 23:18] LABS: INR 1.4 (0.80-1.30); PROTIME 16.7 Sec (11.2-14.2)
[2024-02-23] MEDS ORDERED: OXYCODONE HCL 5 MG TAB PO ONE (06:00)
[2024-02-23 06:17] VITALS: BP 134/106
[2024-02-23 06:34] LABS: APPEARANCE, BODY FLUID YELLOW, CLEAR
[2024-02-23 06:38] LABS: MONONUCLEAR CELLS, BODY FLUID 48; RBC, BODY FLUID 129; SOURCE, BODY FLUID R thorocentesis; WBC, BODY FLUID 128
[2024-02-23 06:39] LABS: PMNS, BODY FLUID 52
[2024-02-24 18:57] LABS: GLUCOSE FLUID SOURCE Thoracentesis (()); GLUCOSE,BODY FLUID 101 mg/dL (()); LACTATE DEHYDROGENASE TOTAL,BF 63 U/L (()); LDH FLUID SOURCE Thoracentesis (())
== END 2024-02-23 06:15 | disposition home or self-care (01) ==
LOC: ED 20:49
PROVIDERS: Internal Medicine
DX: K70.31 Alcoholic cirrhosis of liver with ascites (principal); J91.8 Pleural effusion in other conditions classified elsewhere; I10 Essential (primary) hypertension; F17.200 Nicotine dependence, unspecified, uncomplicated; Z88.5 Allergy status to narcotic agent; Z79.52 Long term (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 of systemic steroids; Z79.899 Other long term (current) drug therapy
CPT/HCPCS: 32555; 36415; 71045; 71046; 80053; 82140; 82945; 85025; 85610; 87070; 87075; 87205; 87502; 89051; 99285-25; A9270; U0002

== ENCOUNTER 2024-03-07 12:55 | Emergency (ER) | payer OTHER ==
[~2024-03-07] VITALS: Ht 180.3 cm; Wt 71.7 kg
--- OUTSIDE RECORDS SUMMARY | 2024-03-07 13:02 | XMS ---
PreManage Notification: KIAH MCDUFFIE Security Electrophysiology Technician Events No recent Security Events currently on file CRITERIA MET - 6 ED Visits in 6 Months - [facility] - 2 Visits in 30 Days CARE PROVIDERS -, [facility] Dentist: Butt Trimmer Current [place] PHONE: [phone] [facility] Current FAMILY PHONE: [phone] Zachery has no Care Guidelines for this patient. EYulisa VISIT COUNT (12 MO.) [address] [place] [address] TOTAL 7 NOTE: Visits indicate total known visits. ED/UCC VISIT TRACKING (12 MO.) 03/07/2024 12:55 KINSEY Youngblood OR TYPE: Emergency COMPLAINT: - ABDOMINAL PAIN 02/22/2024 20:49 KINSEY Youngblood OR TYPE: Emergency COMPLAINT: - DIFFICULTY BREATHING DIAGNOSES: - Alcoholic cirrhosis of liver with ascites - Allergy status to narcotic agent - Essential (primary) hypertension - terminal block assembler (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 of systemic steroids - Nicotine dependence, unspecified, uncomplicated - Other ascites - Other skilled nursing (current) drug therapy - Pleural effusion in other conditions classified elsewhere - Shortness of breath - Unspecified cirrhosis of liver 02/17/2024 09:45 KINSEY Youngblood OR TYPE: Emergency COMPLAINT: - TROUBLE BREATHING DIAGNOSES: - Allergy status to narcotic agent - Chronic hepatic failure without coma - Encounter for screening for COVID-19 - Essential (primary) hypertension - Nicotine dependence, unspecified, uncomplicated - Other technician terminal and repeater (current) drug therapy - Pleural effusion, not elsewhere classified - Respiratory disorder, unspecified - Shortness of breath 02/09/2024 10:58 KINSEY Youngblood OR TYPE: Emergency COMPLAINT: - SOB,STOMACH PAIN DIAGNOSES: - Allergy status to narcotic agent - Calculus of gallbladder without cholecystitis without obstruction - Chronic hepatic failure without coma - Essential (primary) hypertension - Nicotine dependence, unspecified, uncomplicated - Other technician terminal and repeater (current) drug therapy - Pleural effusion, not [...] - Nicotine dependence, unspecified, uncomplicated - Other technician terminal and repeater (current) drug therapy - Pleural effusion, not elsewhere classified - Unspecified abdominal pain - Unspecified viral 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 coma 01/22/2024 12:09 KINSEY Youngblood OR TYPE: Emergency COMPLAINT: - ABDOMINAL PAIN DIAGNOSES: - Allergy status to narcotic agent - Essential (primary) hypertension - Hepatic failure, unspecified without coma - Nausea with vomiting, unspecified - Nicotine dependence, unspecified, uncomplicated - Other skilled nursing (current) drug therapy - Unspecified abdominal pain [...] - Nicotine dependence, unspecified, uncomplicated - Other skilled nursing (current) drug therapy - Personal history of nicotine dependence - Pleural effusion, not elsewhere classified - Pneumonia, unspecified organism [email or web address]
[2024-03-07] MEDS ORDERED: HYDROmorphone HCL 1 MG/ML SYR IV ONE (13:45)
[2024-03-07] MEDS ORDERED: SODIUM CHLORIDE 0.9% 1,000 ML IV ONE (13:45)
[2024-03-07] MEDS ORDERED: ondansetron HCL 4 MG/2 ML VIAL IV ONE (13:45)
[2024-03-07 14:01] LABS: BASOPHILS 0.7 % (0-2); HEMATOCRIT 40.7 % (35.0-50.0); HEMOGLOBIN 14.2 g/dL (12.0-18.0); LYMPHOCYTES 6.1 % (24-44); MCH 35.5 (27-36); MCV 101.3 fl (81-99); MONOCYTES 11.7 % (0-12); NEUTROPHILS 79.5 % (39-80); PLATELET COUNT 149 K/uL (140-440); RBC 4.01 M/ul (4.3-5.7); RDW 15.5 (10.5-15.0)
[2024-03-07 14:15] LABS: ALBUMIN 2.1 g/dL (3.4-5.0); ALBUMIN/GLOBULIN RATIO 0.38 (1.1-2.4); ANION GAP 6.8 (7-21); BILIRUBIN, TOTAL 2.6 ng/dL (0.2-1.0); BUN/CREATININE RATIO 13.72 (6.0-28.6); CREATININE, SERUM 1.02 mg/dL (0.70-1.30); POTASSIUM 3.8 mmol/L (3.5-5.1); PROTEIN, TOTAL 7.6 g/dL (6.4-8.2)
[2024-03-07 14:16] LABS: PARTIAL THROMBOPLASTIN TIME 29.5 Sec (22.9-41.3)
[2024-03-07 14:17] LABS: INR 1.41 (0.80-1.30); PROTIME 17.2 Sec (11.2-14.2)
[2024-03-07 15:33] LABS: BILIRUBIN, URINE NEGATIVE (negative); BLOOD/HGB, URINE LARGE (Negative); KETONE, URINE NEGATIVE (Negative); LEUK ESTERASE, URINE NEGATIVE (negative); NITRITE, URINE NEGATIVE (negative)
[2024-03-07 15:42] LABS: BACTERIA, URINE NONE SEEN /hpf (negative); CASTS, URINE NONE SEEN \\lpf; COLLECTION TYPE, URINE CLEAN CATCH; CRYSTALS, URINE CALCIUM OXALATE 1+ (0-1+); EPITHELIAL CELLS, URINE NONE SEEN /lpf (0-1+); REFLEX CULTURE, URINE Yes (No)
[2024-03-07] MEDS ORDERED: CEFDINIR 300 MG CAP PO ONE (16:45)
[2024-03-07] MEDS ORDERED: CEFDINIR300 MG PO (17:36)
[2024-03-07 17:44] VITALS: BP 135/89
== END 2024-03-07 17:44 | disposition home or self-care (01) ==
LOC: ED 12:55
PROVIDERS: Emergency Medicine
DX: N39.0 Urinary tract infection, site not specified (principal); I10 Essential (primary) hypertension; J45.909 Unspecified asthma, uncomplicated; F17.200 Nicotine dependence, unspecified, uncomplicated; Z88.5 Allergy status to narcotic agent; Z79.899 Other long term (current) drug therapy
CPT/HCPCS: 36415; 74177; 80053; 81001; 83690; 85025; 85610; 85730; 87088; 96375; 99284-25; J1171; J2405; J7030; Q9967

== ENCOUNTER 2024-03-13 14:27 | Emergency (ER) | payer OTHER ==
[~2024-03-13] VITALS: Ht 180.3 cm; Wt 75.7 kg
[~2024-03-13 14:27] MED LIST changes: +CEFDINIR300 MG PO
--- OUTSIDE RECORDS SUMMARY | 2024-03-13 14:33 | XMS ---
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 EYulisa VISIT COUNT (12 MO.) [address] [place] [address] TOTAL 8 NOTE: Visits indicate total known visits. 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 - Right lower quadrant pain - Unspecified asthma, uncomplicated - Urinary tract infection, site not specified 02/22/2024 20:49 [facility] [place] TYPE: Emergency COMPLAINT: - DIFFICULTY BREATHING DIAGNOSES: - Alcoholic cirrhosis of liver with ascites - Allergy status to narcotic agent - Essential (primary) hypertension - vermin exterminator (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 of systemic steroids - Nicotine dependence, unspecified, uncomplicated - Other ascites - 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 - Pleural effusion in other conditions classified elsewhere - Shortness of breath - Unspecified cirrhosis of liver 02/17/2024 09:45 [facility] [place] TYPE: Emergency COMPLAINT: - TROUBLE BREATHING DIAGNOSES: - Allergy status to narcotic agent - Chronic hepatic failure without coma - Encounter for screening for COVID-19 - Essential (primary) hypertension - Nicotine dependence, unspecified, uncomplicated - 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 - Pleural effusion, not elsewhere classified - Respiratory disorder, unspecified - Shortness of breath 02/09/2024 10:58 [facility] [place] TYPE: Emergency COMPLAINT: - SOB,STOMACH PAIN DIAGNOSES: - Allergy status to narcotic agent - Calculus of gallbladder without cholecystitis without obstruction - Chronic hepatic failure without coma - Essential (primary) hypertension - Nicotine dependence, unspecified, uncomplicated - 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 - Pleural effusion, not elsewhere classified - Unspecified abdominal pain 01/29/2024 16:27 [facility] [place] [facility] [place] TYPE: Emergency COMPLAINT: - BACK PAIN 01/28/2024 23:54 [facility] [place] [facility] [place] TYPE: Emergency COMPLAINT: - ABDOMINAL PAIN DIAGNOSES: - Alcoholic cirrhosis of liver with ascites - Allergy status to narcotic agent - Chronic hepatic failure without coma - Essential (primary) hypertension - Nicotine dependence, unspecified, uncomplicated - 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 - Pleural effusion, not elsewhere classified - Unspecified abdominal pain - Unspecified viral 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 coma 01/22/2024 12:09 [facility] [place] TYPE: Emergency COMPLAINT: - ABDOMINAL PAIN DIAGNOSES: - Allergy status to narcotic agent - Essential (primary) hypertension - Hepatic failure, unspecified without coma - Nausea with vomiting, unspecified - Nicotine dependence, unspecified, uncomplicated - Other correction (current) drug therapy - Unspecified abdominal pain [...] - Nicotine dependence, unspecified, uncomplicated - 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
[2024-03-13] MEDS ORDERED: ondansetron HCL 4 MG/2 ML VIAL IV ONE ×2 (15:00→17:30)
[2024-03-13 15:29] LABS: BASOPHILS 0.5 % (0-2); EOSINOPHILS 7.6 % (0-6); HEMATOCRIT 41.3 % (35.0-50.0); HEMOGLOBIN 14.4 g/dL (12.0-18.0); LYMPHOCYTES 10.6 % (24-44); MCH 35.2 (27-36); MCHC 34.8 g/dl (30-36); MCV 101.3 fl (81-99); MONOCYTES 12.5 % (0-12); NEUTROPHILS 68.8 % (39-80); PLATELET COUNT 136 K/uL (140-440); RBC 4.08 M/ul (4.3-5.7); RDW 15.9 (10.5-15.0)
[2024-03-13 15:44] LABS: ALBUMIN 2.1 g/dL (3.4-5.0); ALBUMIN/GLOBULIN RATIO 0.4 (1.1-2.4); ANION GAP 6.6 (7-21); BUN/CREATININE RATIO 13.13 (6.0-28.6); CALCIUM 8.7 mg/dL (8.5-10.1); CREATININE, SERUM 0.99 mg/dL (0.70-1.30); MAGNESIUM 1.8 mg/dL (1.8-2.4); POTASSIUM 4.6 mmol/L (3.5-5.1); PROTEIN, TOTAL 7.4 g/dL (6.4-8.2)
[2024-03-13 17:05] LABS: BILIRUBIN, URINE POSITIVE (negative); BLOOD/HGB, URINE LARGE (Negative); KETONE, URINE NEGATIVE (Negative); LEUK ESTERASE, URINE TRACE (negative); NITRITE, URINE NEGATIVE (negative)
[2024-03-13 17:13] LABS: EPITHELIAL CELLS, URINE NONE SEEN /lpf (0-1+); RED BLOOD CELLS, URINE >50 /hpf (0-5)
[2024-03-13 17:14] LABS: BACTERIA, URINE NONE SEEN /hpf (negative); CASTS, URINE NONE SEEN \\lpf; COLLECTION TYPE, URINE CLEAN CATCH; CRYSTALS, URINE NONE SEEN (0-1+); REFLEX CULTURE, URINE Yes (No)
[2024-03-13] MEDS ORDERED: HYDROmorphone HCL 1 MG/ML SYR IV PRN (17:30)
[2024-03-13] MEDS ORDERED: HYDROCODON-ACE1 EA10 PO (19:05)
[2024-03-13] MEDS ORDERED: AMOX TR-K CLV1 EAC1 PO (19:05)
[2024-03-13 20:14] VITALS: BP 112/91
[2024-03-13] MEDS ORDERED: HYDROCODONE BIT/ACETAMINOPHEN 5/325 MG 1 TAB HOME.PACK PO ONE (20:15)
[2024-03-13] MEDS ORDERED: AMOXICILLIN 500 MG HOME.PACK PO ONE (20:15)
== END 2024-03-13 20:15 | disposition home or self-care (01) ==
LOC: ED 14:27
PROVIDERS: Emergency Medicine
DX: K52.9 Noninfective gastroenteritis and colitis, unspecified (principal); I10 Essential (primary) hypertension; F17.200 Nicotine dependence, unspecified, uncomplicated; Z88.5 Allergy status to narcotic agent; Z79.899 Other long term (current) drug therapy
CPT/HCPCS: 36415; 74177; 80053; 81001; 83690; 83735; 85025; 87088; 96375; 96376; 99284-25; A9270; J1171; J2405; Q9967

== ENCOUNTER 2024-03-27 16:44 | Emergency (ER) | payer OTHER ==
[~2024-03-27] VITALS: Ht 180.3 cm; Wt 79.4 kg
[~2024-03-27 16:44] MED LIST changes: +HYDROCODON-ACE1 EA10 PO
--- OUTSIDE RECORDS SUMMARY | 2024-03-27 16:51 | XMS ---
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 EYulisa VISIT COUNT ([address] MO[address] [place] [address] TOTAL 9 NOTE: Visits indicate total known visits. ED/UCC VISIT TRACKING (12 MO.) 03/27/2024 16:44 [facility] [place] TYPE: Emergency COMPLAINT: - ABDOMINAL PAIN 03/13/2024 14:27 [facility] [place] TYPE: Emergency COMPLAINT: - ABDOMINAL PAIN DIAGNOSES: - Allergy status to narcotic agent - Essential (primary) hypertension - Nicotine dependence, unspecified, uncomplicated - Noninfective gastroenteritis and colitis, unspecified - Other drop forger (current) drug therapy - Unspecified abdominal pain 03/07/2024 12:55 [facility] [place] TYPE: Emergency COMPLAINT: - ABDOMINAL PAIN DIAGNOSES: - Allergy status to narcotic agent - Essential (primary) hypertension - Nicotine dependence, unspecified, uncomplicated - Other skilled nursing (current) drug therapy - Right lower quadrant pain - Unspecified asthma, uncomplicated - Urinary tract infection, site not specified 02/22/2024 20:49 [facility] [place] TYPE: Emergency COMPLAINT: - DIFFICULTY BREATHING DIAGNOSES: - Alcoholic cirrhosis of liver with ascites - Allergy status to narcotic agent - Essential (primary) hypertension - residential (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 of systemic steroids - Nicotine [...] - Nicotine dependence, unspecified, uncomplicated - Other drop forger (current) drug therapy - Pleural effusion, not elsewhere classified - Respiratory disorder, unspecified - Shortness of breath 02/09/2024 10:58 [facility] [place] TYPE: Emergency COMPLAINT: - SOB,STOMACH PAIN DIAGNOSES: - Allergy status to narcotic agent - Calculus of gallbladder without cholecystitis without obstruction - Chronic hepatic failure without coma - Essential (primary) hypertension - Nicotine dependence, unspecified, uncomplicated - Other drop forger (current) drug therapy - Pleural effusion, not [...] skilled nursing (current) drug therapy - Pleural effusion, not [...] not elsewhere classified - Pneumonia, unspecified organism [email or web address]
[2024-03-27 17:26] LABS: BASOPHILS 1.1 % (0-2); EOSINOPHILS 4.5 % (0-6); HEMATOCRIT 36.4 % (35.0-50.0); HEMOGLOBIN 12.8 g/dL (12.0-18.0); LYMPHOCYTES 13.2 % (24-44); MCV 99.8 fl (81-99); MONOCYTES 13.3 % (0-12); NEUTROPHILS 67.9 % (39-80); PLATELET COUNT 140 K/uL (140-440); RBC 3.65 M/ul (4.3-5.7); RDW 15.4 (10.5-15.0)
[2024-03-27 17:42] LABS: ALBUMIN 1.9 g/dL (3.4-5.0); ALBUMIN/GLOBULIN RATIO 0.38 (1.1-2.4); BILIRUBIN, TOTAL 2.7 ng/dL (0.2-1.0); BUN/CREATININE RATIO 14.43 (6.0-28.6); CALCIUM 8.2 mg/dL (8.5-10.1); CREATININE, SERUM 0.97 mg/dL (0.70-1.30); PROTEIN, TOTAL 6.9 g/dL (6.4-8.2)
[2024-03-27] MEDS ORDERED: HYDROmorphone HCL 1 MG/ML SYR IV PRN (18:30)
[2024-03-27] MEDS ORDERED: OXYCODONE HCL5 MG PO (20:30)
[2024-03-27] MEDS ORDERED: ALBUTEROL SULFATE 0.083% 3 ML VIAL INH ONE (21:30)
[2024-03-27 22:25] VITALS: BP 150/86
--- NOTE | 2024-03-27 22:25 | EKG ---
[facility] [address] [facility] [place] [address] Signed Normal sinus rhythm T wave abnormality, consider lateral ischemia Abnormal ECG When compared with ECG of 09-FEB-2024 13:29, Nonspecific T wave abnormality, worse in Inferior leads T wave inversion now evident in Lateral leads Confirmed by Atilio Hamilton MD () on 03/27/2024 10:25:36 PM Electronically Signed By: ATILIO HAMILTON MD 03/27/242224 PATIENT NAME: KIAH MCDUFFIE JAMI Electrocardiogram DATE OF : 63 PHYSICIAN: ATILIO HAMILTON MD REPORT #: [id number] REPORT IS CONFIDENTIAL AND NOT TO BE RELEASED WITHOUT AUTHORIZATION
== END 2024-03-27 22:27 | disposition home or self-care (01) ==
LOC: ED 16:44
PROVIDERS: Emergency Medicine
DX: J90 Pleural effusion, not elsewhere classified (principal); K72.90 Hepatic failure, unspecified without coma; I10 Essential (primary) hypertension; J45.909 Unspecified asthma, uncomplicated; F17.200 Nicotine dependence, unspecified, uncomplicated; Z88.5 Allergy status to narcotic agent; Z79.899 Other long term (current) drug therapy
CPT/HCPCS: 32555; 36415; 71045; 80053; 82140; 83690; 84484; 85025; 93005; 93010; 94640; 99284-25; J1171

== ENCOUNTER 2024-04-06 14:10 | Emergency (ER) | payer OTHER ==
[~2024-04-06] VITALS: Ht 180.3 cm; Wt 79.8 kg
--- OUTSIDE RECORDS SUMMARY | 2024-04-06 14:12 | XMS ---
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 EYulisa VISIT COUNT (12 MO.) [address] [place] [address] TOTAL 10 NOTE: Visits indicate total known visits. ED/UCC VISIT TRACKING (12 MO.) 04/06/2024 14:10 [facility] [place] TYPE: Emergency COMPLAINT: - ABDOMINAL PAIN 03/27/2024 16:44 [facility] [place] TYPE: Emergency COMPLAINT: - ABDOMINAL PAIN DIAGNOSES: - Allergy status to narcotic agent - Essential (primary) hypertension - Hepatic failure, unspecified without coma - Liver disease, unspecified - Nicotine dependence, unspecified, uncomplicated - Other group home (current) drug therapy - Pleural effusion, not elsewhere classified - Unspecified asthma, uncomplicated - Upper abdominal pain, unspecified 03/13/2024 14:27 [facility] [place] TYPE: Emergency COMPLAINT: - ABDOMINAL PAIN DIAGNOSES: - Allergy status to narcotic agent - Essential (primary) hypertension - Nicotine dependence, unspecified, uncomplicated - Noninfective gastroenteritis and colitis, unspecified - Other terminal carman (current) drug therapy - Unspecified abdominal pain 03/07/2024 12:55 [facility] [place] TYPE: Emergency COMPLAINT: - ABDOMINAL PAIN DIAGNOSES: - Allergy status to narcotic agent - Essential (primary) hypertension - Nicotine dependence, unspecified, uncomplicated - Other terminal carman (current) drug therapy - Right lower quadrant pain - Unspecified asthma, uncomplicated - Urinary tract infection, site not specified 02/22/2024 20:[address] [facility] [place] TYPE: Emergency COMPLAINT: - DIFFICULTY BREATHING DIAGNOSES: - Alcoholic cirrhosis of liver with ascites - Allergy status to narcotic agent - Essential (primary) hypertension - jail (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 of systemic steroids - Nicotine dependence, unspecified, uncomplicated - Other ascites - Other terminal carman (current) drug therapy - Pleural effusion in other conditions classified elsewhere - Shortness of breath - Unspecified cirrhosis of liver 02/17/2024 09:45 [facility] [place] TYPE: Emergency COMPLAINT: - TROUBLE BREATHING DIAGNOSES: - Allergy status to narcotic agent - Chronic hepatic failure without coma - Encounter for screening for COVID-19 - Essential (primary) hypertension - Nicotine dependence, unspecified, uncomplicated - Other group home (current) drug therapy - Pleural effusion, not elsewhere classified - Respiratory disorder, unspecified - Shortness of breath 02/09/2024 10:58 [facility] [place] TYPE: Emergency COMPLAINT: - SOB,STOMACH PAIN DIAGNOSES: - Allergy status to narcotic agent - Calculus of gallbladder without cholecystitis without obstruction - Chronic hepatic failure without coma - Essential (primary) hypertension - Nicotine dependence, unspecified, uncomplicated - Other group home (current) drug therapy - Pleural effusion, not [...] - Nicotine dependence, unspecified, uncomplicated - Other terminal carman (current) drug therapy - Pleural effusion, not elsewhere classified - Unspecified abdominal pain - Unspecified viral 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 coma 01/22/2024 12:09 [facility] [place] TYPE: Emergency COMPLAINT: - ABDOMINAL PAIN DIAGNOSES: - Allergy status to narcotic agent - Essential (primary) hypertension - Hepatic failure, unspecified without coma - Nausea with vomiting, unspecified - Nicotine dependence, unspecified, uncomplicated - Other group home (current) drug therapy - Unspecified abdominal pain [...] - Nicotine dependence, unspecified, uncomplicated - Other terminal carman (current) drug therapy - Personal history of nicotine dependence - Pleural effusion, not elsewhere classified - Pneumonia, unspecified organism [email or web address]
[2024-04-06 15:09] LABS: EOSINOPHILS 10.4 % (0-6); HEMATOCRIT 40.1 % (35.0-50.0); LYMPHOCYTES 14.2 % (24-44); MCH 34.9 (27-36); MCHC 34.9 g/dl (30-36); MCV 100.1 fl (81-99); MONOCYTES 14.8 % (0-12); NEUTROPHILS 59.6 % (39-80); PLATELET COUNT 159 K/uL (140-440); RBC 4.01 M/ul (4.3-5.7); RDW 15.1 (10.5-15.0)
[2024-04-06 15:24] LABS: ALBUMIN 2.1 g/dL (3.4-5.0); ALBUMIN/GLOBULIN RATIO 0.41 (1.1-2.4); ANION GAP 5.9 (7-21); BILIRUBIN, TOTAL 1.6 ng/dL (0.2-1.0); BUN/CREATININE RATIO 13.48 (6.0-28.6); CALCIUM 8.6 mg/dL (8.5-10.1); CREATININE, SERUM 0.89 mg/dL (0.70-1.30); POTASSIUM 3.9 mmol/L (3.5-5.1); PROTEIN, TOTAL 7.2 g/dL (6.4-8.2)
[2024-04-06] MEDS ORDERED: HYDROmorphone HCL 1 MG/ML SYR IV ONE (15:30)
[2024-04-06 16:48] VITALS: BP 159/107
== END 2024-04-06 16:48 | disposition home or self-care (01) ==
LOC: ED 14:10
PROVIDERS: Emergency Medicine
DX: K72.10 Chronic hepatic failure without coma (principal); J90 Pleural effusion, not elsewhere classified; I10 Essential (primary) hypertension; J45.909 Unspecified asthma, uncomplicated; F17.200 Nicotine dependence, unspecified, uncomplicated; Z88.5 Allergy status to narcotic agent; Z88.8 Allergy status to other drugs, medicaments and biological substances; Z79.899 Other long term (current) drug therapy
CPT/HCPCS: 36415; 71045; 74176; 80053; 83690; 85025; 96374; 99284-25; J1171

== ENCOUNTER 2024-04-14 23:01 | Emergency (ER) | payer OTHER ==
[~2024-04-14] VITALS: Ht 180.3 cm; Wt 78.9 kg
--- OUTSIDE RECORDS SUMMARY | 2024-04-14 23:11 | XMS ---
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: [facility] Current FAMILY PHONE: [phone] Zachery has no Care Guidelines for this patient. EYulisa VISIT COUNT (12 MO.) [address] [place] [address] TOTAL 11 NOTE: Visits indicate total known visits. ED/UCC VISIT TRACKING (12 MO.) 04/14/2024 23:06 [facility] [place] TYPE: Emergency COMPLAINT: - WEAKNESS 04/06/2024 14:10 [facility] [place] TYPE: Emergency COMPLAINT: - ABDOMINAL PAIN DIAGNOSES: - Allergy status to narcotic agent - Allergy status to other drugs, medicaments and biological substances - Chronic hepatic failure without coma - Essential (primary) hypertension - Nicotine dependence, unspecified, uncomplicated - Other jail (current) drug therapy - Pleural effusion, not elsewhere classified - Unspecified abdominal pain - Unspecified asthma, uncomplicated 03/27/2024 16:44 [facility] [place] TYPE: Emergency COMPLAINT: - ABDOMINAL PAIN DIAGNOSES: - Allergy status to narcotic agent - Essential (primary) hypertension - Hepatic failure, unspecified without coma - Liver disease, unspecified - Nicotine dependence, unspecified, uncomplicated - 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 - Pleural effusion, not elsewhere classified - Unspecified asthma, uncomplicated - Upper abdominal pain, unspecified 03/13/2024 14:27 [facility] [place] TYPE: Emergency COMPLAINT: - ABDOMINAL PAIN DIAGNOSES: - Allergy status to narcotic agent - Essential (primary) hypertension - Nicotine dependence, unspecified, uncomplicated - Noninfective gastroenteritis and colitis, unspecified - Other jail (current) drug therapy - Unspecified abdominal pain 03/07/2024 12:55 [facility] [place] TYPE: Emergency COMPLAINT: - ABDOMINAL PAIN DIAGNOSES: - Allergy status to narcotic agent - Essential (primary) hypertension - Nicotine dependence, unspecified, uncomplicated - 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 - Right lower quadrant pain - Unspecified asthma, uncomplicated - Urinary tract infection, site not specified 02/22/2024 20:49 [facility] [place] TYPE: Emergency COMPLAINT: - DIFFICULTY BREATHING DIAGNOSES: - Alcoholic cirrhosis of liver with ascites - Allergy status to narcotic agent - Essential (primary) hypertension - 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 (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 of systemic 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 - Nicotine dependence, unspecified, uncomplicated - Other ascites - 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 - Pleural effusion in other conditions classified elsewhere - Shortness of breath - Unspecified cirrhosis of liver 02/17/2024 09:45 [facility] [place] TYPE: Emergency COMPLAINT: - TROUBLE BREATHING DIAGNOSES: - Allergy status to narcotic agent - Chronic hepatic failure without coma - Encounter for screening for COVID-19 - Essential (primary) hypertension - Nicotine dependence, unspecified, uncomplicated - Other jail (current) drug therapy - Pleural effusion, not elsewhere classified - Respiratory disorder, unspecified - Shortness of breath 02/09/2024 10:58 [facility] [place] TYPE: Emergency COMPLAINT: - SOB,STOMACH PAIN DIAGNOSES: - Allergy status to narcotic agent - Calculus of gallbladder without cholecystitis without obstruction - Chronic hepatic failure without coma - Essential (primary) hypertension - Nicotine dependence, unspecified, uncomplicated - Other jail (current) drug therapy - Pleural effusion, not elsewhere classified - Unspecified abdominal pain 01/29/2024 16:27 [facility] [place] TYPE: Emergency COMPLAINT: - BACK PAIN 01/28/2024 23:54 [facility] [place] TYPE: Emergency COMPLAINT: - ABDOMINAL PAIN DIAGNOSES: - Alcoholic cirrhosis of liver with ascites - Allergy status to narcotic agent - Chronic hepatic failure without coma - Essential (primary) hypertension - Nicotine dependence, unspecified, uncomplicated - Other jail (current) drug therapy - Pleural effusion, not elsewhere classified - Unspecified abdominal pain - Unspecified viral 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 coma 01/22/2024 12:09 [facility] [place] TYPE: Emergency COMPLAINT: - ABDOMINAL PAIN DIAGNOSES: - Allergy status to narcotic agent - Essential (primary) hypertension - Hepatic failure, unspecified without coma - Nausea with vomiting, unspecified - Nicotine dependence, unspecified, uncomplicated - Other jail (current) drug therapy - Unspecified abdominal pain - Unspecified cirrhosis of liver - Unspecified viral 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 coma INPATIENT VISIT TRACKING (12 MO.) 01/29/2024 16:[address] 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
[2024-04-14] MEDS ORDERED: OXYCODONE HCL5 MG PO (23:17)
[2024-04-15 00:18] LABS: BASOPHILS 0.8 % (0-2); EOSINOPHILS 4.1 % (0-6); HEMATOCRIT 41.3 % (35.0-50.0); HEMOGLOBIN 14.4 g/dL (12.0-18.0); LYMPHOCYTES 10.5 % (24-44); MCH 35.2 (27-36); MCV 100.8 fl (81-99); MONOCYTES 11.9 % (0-12); NEUTROPHILS 72.7 % (39-80); PLATELET COUNT 156 K/uL (140-440)
[2024-04-15] MEDS ORDERED: AMOX TR-K CLV1 EAC1 PO (00:30)
[2024-04-15 00:32] LABS: ALBUMIN 2.1 g/dL (3.4-5.0); ALBUMIN/GLOBULIN RATIO 0.39 (1.1-2.4); ANION GAP 9.6 (7-21); BUN/CREATININE RATIO 16.16 (6.0-28.6); CALCIUM 8.5 mg/dL (8.5-10.1); CREATININE, SERUM 0.99 mg/dL (0.70-1.30); POTASSIUM 3.6 mmol/L (3.5-5.1); PROTEIN, TOTAL 7.5 g/dL (6.4-8.2)
[2024-04-15] MEDS ORDERED: AMOXICILLIN/CLAVULANATE K 875 MG TAB PO ONE (01:00)
[2024-04-15 01:45] VITALS: BP 133/89
[2024-04-15 01:49] LABS: BILIRUBIN, URINE POSITIVE (negative); BLOOD/HGB, URINE LARGE (Negative); KETONE, URINE TRACE (Negative); LEUK ESTERASE, URINE TRACE (negative); NITRITE, URINE POSITIVE (negative); PH, URINE 6.5 (5-7)
[2024-04-15 01:54] LABS: RED BLOOD CELLS, URINE >50 /hpf (0-5)
[2024-04-15 01:55] LABS: BACTERIA, URINE RARE /hpf (negative); CASTS, URINE NONE SEEN \\lpf; COLLECTION TYPE, URINE CLEAN CATCH; CRYSTALS, URINE CALCIUM OXALATE 2+ (0-1+); EPITHELIAL CELLS, URINE SQUAMOUS 1+ /lpf (0-1+); REFLEX CULTURE, URINE No (No)
--- NOTE | 2024-04-15 15:26 | EKG ---
[facility] [address] [facility] [place] [address] Signed Normal sinus rhythm Cannot rule out Anterior infarct , age undetermined Abnormal ECG When compared with ECG of 27-MAR-2024 16:55, Nonspecific T wave abnormality, improved in Inferior leads T wave inversion no longer evident in Lateral leads Confirmed by Atilio Hamilton MD () on 04/15/2024 3:26:29 PM Electronically Signed By: ATILIO HAMILTON MD 04/15/24 1526 PATIENT NAME: KIAH MCDUFFIE JAMI Electrocardiogram DATE OF : 63 PHYSICIAN: ATILIO HAMILTON MD REPORT #: [id number] REPORT IS CONFIDENTIAL AND NOT TO BE RELEASED WITHOUT AUTHORIZATION
== END 2024-04-15 01:45 | disposition home or self-care (01) ==
LOC: ED 23:01
PROVIDERS: Internal Medicine
DX: K72.10 Chronic hepatic failure without coma (principal); J18.9 Pneumonia, unspecified organism; I10 Essential (primary) hypertension; J45.909 Unspecified asthma, uncomplicated; F17.200 Nicotine dependence, unspecified, uncomplicated; Z88.5 Allergy status to narcotic agent; Z79.899 Other long term (current) drug therapy
CPT/HCPCS: 36415; 71046; 80053; 81001; 82140; 83605; 85025; 93005; 93010; 99285-25

== ENCOUNTER 2024-04-22 23:20 | Emergency (ER) | payer OTHER ==
[~2024-04-22] VITALS: Ht 180.3 cm; Wt 77.1 kg
--- OUTSIDE RECORDS SUMMARY | 2024-04-22 23:22 | XMS ---
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 EYulisa VISIT COUNT (12 MO.) [address] [place] [address] TOTAL 12 NOTE: Visits indicate total known visits. ED/UCC VISIT TRACKING (12 MO.) 04/22/2024 23:21 [facility] [place] TYPE: Emergency COMPLAINT: - ABDOMINAL PAIN 04/14/2024 23:06 [facility] [place] TYPE: Emergency COMPLAINT: - WEAKNESS DIAGNOSES: - Allergy status to narcotic agent - Chronic hepatic failure without coma - Essential (primary) hypertension - Nicotine dependence, unspecified, uncomplicated - Other senior living (current) drug therapy - Pneumonia, unspecified organism - Unspecified asthma, uncomplicated 04/06/2024 14:10 [facility] [place] TYPE: Emergency COMPLAINT: - ABDOMINAL PAIN DIAGNOSES: - Allergy status to narcotic agent - Allergy status to other drugs, medicaments and biological substances - Chronic hepatic failure without coma - Essential (primary) hypertension - Nicotine dependence, unspecified, uncomplicated - Other supervisor 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s (current) drug therapy - Pleural effusion, not elsewhere classified - Unspecified abdominal pain - Unspecified asthma, uncomplicated 03/27/2024 16:44 [facility] [place] TYPE: Emergency COMPLAINT: - ABDOMINAL PAIN DIAGNOSES: - Allergy status to narcotic agent - Essential (primary) hypertension - Hepatic failure, unspecified without coma - Liver disease, unspecified - Nicotine dependence, unspecified, uncomplicated - Other supervisor 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s (current) drug therapy - Pleural effusion, not elsewhere classified - Unspecified asthma, uncomplicated - Upper abdominal pain, unspecified 03/13/2024 14:27 [facility] [place] TYPE: Emergency COMPLAINT: - ABDOMINAL PAIN DIAGNOSES: - Allergy status to narcotic agent - Essential (primary) hypertension - Nicotine dependence, unspecified, uncomplicated - Noninfective gastroenteritis and colitis, unspecified - Other senior living (current) drug therapy - Unspecified abdominal pain 03/07/2024 12:55 [facility] [place] TYPE: Emergency COMPLAINT: - ABDOMINAL PAIN DIAGNOSES: - Allergy status to narcotic agent - Essential (primary) hypertension - Nicotine dependence, unspecified, uncomplicated - Other senior living (current) drug therapy - Right lower quadrant pain - Unspecified asthma, uncomplicated - Urinary tract infection, site not specified 02/22/2024 20:49 [facility] [place] TYPE: Emergency COMPLAINT: - DIFFICULTY BREATHING DIAGNOSES: - Alcoholic cirrhosis of liver with ascites - Allergy status to narcotic agent - Essential (primary) hypertension - terminal makeup operator (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 of systemic steroids - Nicotine dependence, unspecified, uncomplicated - Other ascites - Other supervisor 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s (current) drug therapy - Pleural effusion in other conditions classified elsewhere - Shortness of breath - Unspecified cirrhosis of liver 02/17/2024 09:45 [facility] [place] TYPE: Emergency COMPLAINT: - TROUBLE BREATHING DIAGNOSES: - Allergy status to narcotic agent - Chronic hepatic failure without coma - Encounter for screening for COVID-19 - Essential (primary) hypertension - Nicotine dependence, unspecified, uncomplicated - Other supervisor 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s (current) drug therapy - Pleural effusion, not elsewhere classified - Respiratory disorder, unspecified - Shortness of breath 02/09/2024 10:58 [facility] [place] TYPE: Emergency COMPLAINT: - SOB,STOMACH PAIN DIAGNOSES: - Allergy status to narcotic agent - Calculus of gallbladder without cholecystitis without obstruction - Chronic hepatic failure without coma - Essential (primary) hypertension - Nicotine dependence, unspecified, uncomplicated - Other senior living (current) drug therapy - Pleural effusion, not [...] - Nicotine dependence, unspecified, uncomplicated - Other senior living (current) drug therapy - Pleural effusion, not elsewhere classified - Unspecified abdominal pain - Unspecified viral 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 coma 01/22/2024 12:09 [facility] [place] TYPE: Emergency COMPLAINT: - ABDOMINAL PAIN DIAGNOSES: - Allergy status to narcotic agent - Essential (primary) hypertension - Hepatic failure, unspecified without coma - Nausea with vomiting, unspecified - Nicotine dependence, unspecified, uncomplicated - Other supervisor 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s (current) drug therapy - Unspecified abdominal pain [...] - Nicotine dependence, unspecified, uncomplicated - Other supervisor 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s (current) drug therapy - Personal history of nicotine dependence - Pleural effusion, not elsewhere classified - Pneumonia, unspecified organism [email or web address]
[2024-04-22] MEDS ORDERED: HYDROmorphone HCL 1 MG/ML SYR IM ONE (23:45)
[2024-04-23] MEDS ORDERED: FUROSEMIDE80 MG PO (00:52)
[2024-04-23] MEDS ORDERED: ALDACTONE100 MG PO (00:52)
[2024-04-23] MEDS ORDERED: K-TAB ER20 MEQ PO (00:54)
[2024-04-23] MEDS ORDERED: OXYCODONE HCL 5 MG TAB ONE (02:02)
[2024-04-23 03:33] LABS: BASOPHILS 0.9 % (0-2); EOSINOPHILS 4.3 % (0-6); HEMOGLOBIN 15.2 g/dL (12.0-18.0); LYMPHOCYTES 5.2 % (24-44); MCH 34.6 (27-36); MCHC 34.5 g/dl (30-36); MCV 100.4 fl (81-99); MONOCYTES 14.1 % (0-12); NEUTROPHILS 75.5 % (39-80); PLATELET COUNT 99 K/uL (140-440); RBC 4.38 M/ul (4.3-5.7); RDW 14.9 (10.5-15.0)
[2024-04-23 03:43] VITALS: BP 149/89
== END 2024-04-23 03:47 | disposition home or self-care (01) ==
LOC: ED 23:20
PROVIDERS: Family Medicine
DX: B19.20 Unspecified viral 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 coma (principal); R18.8 Other ascites; I10 Essential (primary) hypertension; J45.909 Unspecified asthma, uncomplicated; F17.200 Nicotine dependence, unspecified, uncomplicated; Z88.5 Allergy status to narcotic agent; Z79.899 Other long term (current) drug therapy
CPT/HCPCS: 36415; 74176; 80053; 83690; 85025; 85610; 96372; 99284-25; A9270; J1171

== ENCOUNTER 2024-04-27 20:15 | Emergency (ER) | payer OTHER ==
[~2024-04-27] VITALS: Ht 180.3 cm; Wt 79.8 kg
--- OUTSIDE RECORDS SUMMARY | 2024-04-27 20:22 | XMS ---
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 EYulisa VISIT COUNT (12 MO.) [address] [place] [address] TOTAL 13 NOTE: Visits indicate total known visits. ED/UCC VISIT TRACKING (12 MO.) 04/27/2024 20:16 [facility] [place] TYPE: Emergency COMPLAINT: - ABDOMINAL/CHEST PAIN 04/22/2024 23:21 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 - Unspecified abdominal pain - Unspecified asthma, uncomplicated - Unspecified viral 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 coma 04/14/2024 23:06 [facility] [place] TYPE: Emergency COMPLAINT: - WEAKNESS DIAGNOSES: - Allergy status to narcotic agent - Chronic hepatic failure without coma - Essential (primary) hypertension - Nicotine dependence, unspecified, uncomplicated - Other alf (current) drug therapy - Pneumonia, unspecified organism - Unspecified asthma, uncomplicated 04/06/2024 14:10 [facility] [place] TYPE: Emergency COMPLAINT: - ABDOMINAL PAIN DIAGNOSES: - Allergy status to narcotic agent - Allergy status to other drugs, medicaments and biological substances - Chronic hepatic failure without coma - Essential (primary) hypertension - Nicotine dependence, unspecified, uncomplicated - Other alf (current) drug therapy - Pleural effusion, not elsewhere classified - Unspecified abdominal pain - Unspecified asthma, uncomplicated 03/27/2024 16:44 [facility] [place] TYPE: Emergency COMPLAINT: - ABDOMINAL PAIN DIAGNOSES: - Allergy status to narcotic agent - Essential (primary) hypertension - Hepatic failure, unspecified without coma - Liver disease, unspecified - Nicotine dependence, unspecified, uncomplicated - 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 - Pleural effusion, not elsewhere classified - Unspecified asthma, uncomplicated - Upper abdominal pain, unspecified 03/13/2024 14:27 [facility] [place] TYPE: Emergency COMPLAINT: - ABDOMINAL PAIN DIAGNOSES: - Allergy status to narcotic agent - Essential (primary) hypertension - Nicotine dependence, unspecified, uncomplicated - Noninfective gastroenteritis and colitis, unspecified - Other alf (current) drug therapy - Unspecified abdominal pain 03/07/2024 12:55 [facility] [place] TYPE: Emergency COMPLAINT: - ABDOMINAL PAIN DIAGNOSES: - Allergy status to narcotic agent - Essential (primary) hypertension - Nicotine dependence, unspecified, uncomplicated - 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 - Right lower quadrant pain - Unspecified asthma, uncomplicated - Urinary tract infection, site not specified 02/22/2024 20:49 [facility] [place] TYPE: Emergency COMPLAINT: - DIFFICULTY BREATHING DIAGNOSES: - Alcoholic cirrhosis of liver with ascites - Allergy status to narcotic agent - Essential (primary) hypertension - 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 - Nicotine dependence, unspecified, uncomplicated - Other ascites - Other alf (current) drug therapy - Pleural effusion in other conditions classified elsewhere - Shortness of breath - Unspecified cirrhosis of liver 02/17/2024 09:45 [facility] [place] TYPE: Emergency COMPLAINT: - TROUBLE BREATHING DIAGNOSES: - Allergy status to narcotic agent - Chronic hepatic failure without coma - Encounter for screening for COVID-19 - Essential (primary) hypertension - Nicotine dependence, unspecified, uncomplicated - Other alf (current) drug therapy - Pleural effusion, not elsewhere classified - Respiratory disorder, unspecified - Shortness of breath 02/09/2024 10:58 [facility] [place] TYPE: Emergency COMPLAINT: - SOB,STOMACH PAIN DIAGNOSES: - Allergy status to narcotic agent - Calculus of gallbladder without cholecystitis without obstruction - Chronic hepatic failure without coma - Essential (primary) hypertension - Nicotine dependence, unspecified, uncomplicated - 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 - Pleural effusion, [...] - Nicotine dependence, unspecified, uncomplicated - Other alf (current) drug therapy - Pleural effusion, not elsewhere classified - Unspecified abdominal pain - Unspecified viral 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 coma 01/22/2024 12:09 [facility] [place] TYPE: Emergency COMPLAINT: - ABDOMINAL PAIN DIAGNOSES: - Allergy status to narcotic agent - Essential (primary) hypertension - Hepatic failure, unspecified without coma - Nausea with vomiting, unspecified - Nicotine dependence, unspecified, uncomplicated - 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
[2024-04-27] MEDS ORDERED: ALBUTEROL/IPRATROPIUM 3 ML NEB INH PRN (20:30)
[2024-04-27 21:13] LABS: BASOPHILS 0.8 % (0-2)
[2024-04-27 21:16] LABS: EOSINOPHILS 2.9 % (0-6); LYMPHOCYTES 9.3 % (24-44); MCH 35.1 (27-36); MCHC 34.8 g/dl (30-36); MCV 100.9 fl (81-99); MONOCYTES 13.9 % (0-12); NEUTROPHILS 73.1 % (39-80); RBC 4.56 M/ul (4.3-5.7); RDW 15.9 (10.5-15.0)
[2024-04-27 21:35] LABS: ALBUMIN 1.9 g/dL (3.4-5.0); ALBUMIN/GLOBULIN RATIO 0.31 (1.1-2.4); ANION GAP 7.8 (7-21); BILIRUBIN, TOTAL 8.3 mg/dL (0.2-1.0); BUN/CREATININE RATIO 15.53 (6.0-28.6); CALCIUM 8.8 mg/dL (8.5-10.1); CREATININE, SERUM 1.03 mg/dL (0.70-1.30); MAGNESIUM 1.6 mg/dL (1.8-2.4); PLATELET COUNT 215 K/uL (140-440); POTASSIUM 3.8 mmol/L (3.5-5.1)
[2024-04-27] MEDS ORDERED: ALBUTEROL SULFATE 8 GM HOME.PACK INH ONE (22:00)
[2024-04-27] MEDS ORDERED: INHALER, ASSIST DEVICES 1 EACH SPACER MISC ONE (22:00)
[2024-04-27] MEDS ORDERED: HYDROmorphone HCL 2 MG HOME.PACK PO ONE (22:00)
[2024-04-27 22:40] VITALS: BP 140/97
--- NOTE | 2024-04-28 22:16 | EKG ---
[facility] [address] [place] [address] Signed Normal sinus rhythm Cannot rule out Anterior infarct (cited on or before 14-APR-2024) Abnormal ECG When compared with ECG of 14-APR-2024 23:17, No significant change was found Confirmed by Atilio Hamilton MD () on 04/28/2024 10:16:00 PM Electronically Signed By: ATILIO HAMILTON MD 04/28/24 2216 PATIENT NAME: KIAH MCDUFFIE Electrocardiogram DATE OF : 63 PHYSICIAN: ATILIO HAMILTON MD REPORT #: [id number] REPORT IS CONFIDENTIAL AND NOT TO BE RELEASED WITHOUT AUTHORIZATION
== END 2024-04-27 22:40 | disposition home or self-care (01) ==
LOC: ED 20:15
PROVIDERS: Emergency Medicine
DX: K72.10 Chronic hepatic failure without coma (principal); R18.8 Other ascites; J91.8 Pleural effusion in other conditions classified elsewhere; I10 Essential (primary) hypertension; B19.20 Unspecified viral 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 coma; J45.909 Unspecified asthma, uncomplicated; F17.200 Nicotine dependence, unspecified, uncomplicated; Z88.5 Allergy status to narcotic agent; Z79.899 Other long term (current) drug therapy
CPT/HCPCS: 36415; 71045; 80053; 83690; 83735; 83880; 84484; 85025; 93005; 93010; 94640; 94664; 99285-25

== ENCOUNTER 2024-05-05 16:35 | Emergency (ER) | payer OTHER ==
[~2024-05-05] VITALS: Ht 180.3 cm; Wt 79.8 kg
--- OUTSIDE RECORDS SUMMARY | 2024-05-05 16:41 | XMS ---
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 EYulisa VISIT COUNT (12 MO.) 14 [facility] TOTAL 14 NOTE: Visits indicate total known visits. ED/UCC VISIT TRACKING (12 MO.) 05/05/2024 16:[address] [facility] [place] TYPE: Emergency COMPLAINT: - SHORTNESS OF BREATH 04/27/2024 20:[address] 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 - Pleural effusion in other conditions classified elsewhere - Shortness of breath - Unspecified asthma, uncomplicated - Unspecified viral 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 coma 04/22/2024 23:21 [facility] [place] TYPE: Emergency COMPLAINT: - ABDOMINAL PAIN DIAGNOSES: - Allergy status to narcotic agent - Essential (primary) hypertension - Nicotine dependence, unspecified, uncomplicated - Other ascites - 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 - Unspecified abdominal pain - Unspecified asthma, uncomplicated - Unspecified viral 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 coma 04/14/2024 23:06 [facility] [place] TYPE: Emergency COMPLAINT: - WEAKNESS DIAGNOSES: - Allergy status to narcotic agent - Chronic hepatic failure without coma - Essential (primary) hypertension - Nicotine dependence, unspecified, uncomplicated - Other snf (current) drug therapy - Pneumonia, unspecified organism - Unspecified asthma, uncomplicated 04/06/2024 14:10 [facility] [place] TYPE: Emergency COMPLAINT: - ABDOMINAL PAIN DIAGNOSES: - Allergy status to narcotic agent - Allergy status to other drugs, medicaments and biological substances - Chronic hepatic failure without coma - Essential (primary) hypertension - Nicotine dependence, unspecified, uncomplicated - Other snf (current) drug therapy - Pleural effusion, not elsewhere classified - Unspecified abdominal pain - Unspecified asthma, uncomplicated 03/27/2024 16:44 [facility] [place] TYPE: Emergency COMPLAINT: - ABDOMINAL PAIN DIAGNOSES: - Allergy status to narcotic agent - Essential (primary) hypertension - Hepatic failure, unspecified without coma - Liver disease, unspecified - Nicotine dependence, unspecified, uncomplicated - Other snf (current) drug therapy - Pleural effusion, not elsewhere classified - Unspecified asthma, uncomplicated - Upper abdominal pain, unspecified 03/13/2024 14:27 [facility] [place] TYPE: Emergency COMPLAINT: - ABDOMINAL PAIN DIAGNOSES: - Allergy status to narcotic agent - Essential (primary) hypertension - Nicotine dependence, unspecified, uncomplicated - Noninfective gastroenteritis and colitis, unspecified - 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 - Unspecified abdominal pain 03/07/2024 12:55 [facility] [place] TYPE: Emergency COMPLAINT: - ABDOMINAL PAIN DIAGNOSES: - Allergy status to narcotic agent - Essential (primary) hypertension - Nicotine dependence, unspecified, uncomplicated - Other snf (current) drug therapy - Right lower quadrant pain - Unspecified asthma, uncomplicated - Urinary tract infection, site not specified 02/22/2024 20:49 [facility] [place] TYPE: Emergency COMPLAINT: - DIFFICULTY BREATHING DIAGNOSES: - Alcoholic cirrhosis of liver with ascites - Allergy status to narcotic agent - Essential (primary) hypertension - alf (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 of systemic steroids - Nicotine dependence, unspecified, uncomplicated - Other ascites - 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 - Pleural effusion in other conditions classified elsewhere - Shortness of breath - Unspecified cirrhosis of liver 02/17/2024 09:45 [facility] [place] TYPE: Emergency COMPLAINT: - TROUBLE BREATHING DIAGNOSES: - Allergy status to narcotic agent - Chronic hepatic failure without coma - Encounter for screening for COVID-19 - Essential (primary) hypertension - Nicotine dependence, unspecified, uncomplicated - Other snf (current) drug therapy - Pleural effusion, not elsewhere classified - Respiratory disorder, unspecified - Shortness of breath 02/09/2024 10:58 [facility] [place] TYPE: Emergency COMPLAINT: - SOB,STOMACH PAIN DIAGNOSES: - Allergy status to narcotic agent - Calculus of gallbladder without cholecystitis without obstruction - Chronic hepatic failure without coma - Essential (primary) hypertension - Nicotine dependence, unspecified, uncomplicated - Other snf (current) drug therapy - Pleural effusion, not [...] - Nicotine dependence, unspecified, uncomplicated - Other snf (current) drug therapy - Pleural effusion, not elsewhere classified - Unspecified abdominal pain - Unspecified viral 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 coma 01/22/2024 12:09 [facility] [place] TYPE: Emergency COMPLAINT: - ABDOMINAL PAIN DIAGNOSES: - Allergy status to narcotic agent - Essential (primary) hypertension - Hepatic failure, unspecified without coma - Nausea with vomiting, unspecified - Nicotine dependence, unspecified, uncomplicated - 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
[2024-05-05] MEDS ORDERED: HYDROMORPHONE HC2 MG PO (18:40)
[2024-05-05] MEDS ORDERED: POTASSIUM CHLO20 ME2 PO (18:40)
[2024-05-05] MEDS ORDERED: SPIRONOLACTONE100 MG NG (18:40)
[2024-05-05 19:17] VITALS: BP 148/112
== END 2024-05-05 19:18 | disposition home or self-care (01) ==
LOC: ED 16:35
DX: J90 Pleural effusion, not elsewhere classified (principal); K72.90 Hepatic failure, unspecified without coma; I10 Essential (primary) hypertension; J45.909 Unspecified asthma, uncomplicated; F17.200 Nicotine dependence, unspecified, uncomplicated; Z88.5 Allergy status to narcotic agent; Z79.899 Other long term (current) drug therapy
CPT/HCPCS: 71045; 99284-25

== ENCOUNTER 2024-05-14 16:07 | Emergency (ER) | payer OTHER ==
[~2024-05-14] VITALS: Ht 180.3 cm; Wt 81.6 kg
[~2024-05-14 16:07] MED LIST changes: +HYDROMORPHONE HC2 MG PO; +POTASSIUM CHLO20 ME2 PO; +SPIRONOLACTONE100 MG NG
[2024-05-14 18:00] LABS: BASOPHILS 0.4 % (0-2); EOSINOPHILS 4.1 % (0-6); HEMATOCRIT 36.6 % (35.0-50.0); HEMOGLOBIN 12.9 g/dL (12.0-18.0); LYMPHOCYTES 7.6 % (24-44); MCH 35.6 (27-36); MCHC 35.2 g/dl (30-36); MCV 101.1 fl (81-99); MONOCYTES 13.1 % (0-12); NEUTROPHILS 74.8 % (39-80); PLATELET COUNT 113 K/uL (140-440); RBC 3.62 M/ul (4.3-5.7); RDW 16.8 (10.5-15.0)
[2024-05-14 18:08] LABS: INR 1.63 (0.80-1.30); PROTIME 19.3 Sec (11.2-14.2)
[2024-05-14 18:14] LABS: ALBUMIN 1.4 g/dL (3.4-5.0); ALBUMIN/GLOBULIN RATIO 0.29 (1.1-2.4); ANION GAP 5.7 (7-21); BILIRUBIN, TOTAL 3.8 mg/dL (0.2-1.0); BUN/CREATININE RATIO 14.77 (6.0-28.6); CALCIUM 8.1 mg/dL (8.5-10.1); CREATININE, SERUM 0.88 mg/dL (0.70-1.30); POTASSIUM 3.7 mmol/L (3.5-5.1); PROTEIN, TOTAL 6.3 g/dL (6.4-8.2)
[2024-05-14] MEDS ORDERED: HYDROmorphone HCL 1 MG/ML SYR IV ONE (18:15)
[2024-05-14] MEDS ORDERED: FUROSEMIDE 100 MG/10 ML VIAL IV ONE (18:15)
[2024-05-14] MEDS ORDERED: ondansetron HCL 4 MG/2 ML VIAL IV ONE (18:15)
[2024-05-14 18:46] LABS: BILIRUBIN, URINE POSITIVE (negative); BLOOD/HGB, URINE LARGE (Negative); KETONE, URINE NEGATIVE (Negative); LEUK ESTERASE, URINE TRACE (negative); NITRITE, URINE NEGATIVE (negative); PH, URINE 5.5 (5-7)
[2024-05-14 18:53] LABS: EPITHELIAL CELLS, URINE NONE SEEN /lpf (0-1+)
[2024-05-14 18:54] LABS: BACTERIA, URINE RARE /hpf (negative); CASTS, URINE NONE SEEN \\lpf; COLLECTION TYPE, URINE CLEAN CATCH; CRYSTALS, URINE CALCIUM OXALATE 4+ (0-1+); REFLEX CULTURE, URINE Yes (No)
[2024-05-14 19:30] VITALS: BP 132/91
== END 2024-05-14 19:42 | disposition home or self-care (01) ==
LOC: ED 16:07
PROVIDERS: Emergency Medicine
DX: K72.10 Chronic hepatic failure without coma (principal); K74.60 Unspecified cirrhosis of liver; B19.20 Unspecified viral 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 coma; R18.8 Other ascites; T50.2X6A Underdosing of carbonic-anhydrase inhibitors, benzothiadiazides and other diuretics, initial encounter; I10 Essential (primary) hypertension; J45.909 Unspecified asthma, uncomplicated; F17.200 Nicotine dependence, unspecified, uncomplicated; Z88.5 Allergy status to narcotic agent; Z79.899 Other long term (current) drug therapy; Z91.148 Patient's other noncompliance with medication regimen for other reason
CPT/HCPCS: 36415; 80053; 81001; 83690; 85025; 85610; 87088; 96374; 96375; 99284-25; J1171; J1940; J2405

== ENCOUNTER 2024-05-16 09:26 | Emergency (ER) | payer OTHER ==
[~2024-05-16] VITALS: Ht 180.3 cm; Wt 80.0 kg
--- OUTSIDE RECORDS SUMMARY | 2024-05-16 09:42 | XMS ---
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 EYulisa VISIT COUNT (12 MO.) 16 [facility] TOTAL 16 NOTE: Visits indicate total known visits. ED/UCC VISIT TRACKING (12 MO.) 05/16/2024 09:26 [facility] [place] TYPE: Emergency COMPLAINT: - ABDOMINAL PAIN 05/14/2024 16:07 [facility] [place] TYPE: Emergency COMPLAINT: - ABDOMINAL PAIN DIAGNOSES: - Abdominal distension (gaseous) - Allergy status to narcotic agent - Chronic hepatic failure without coma - Essential (primary) hypertension - Nicotine dependence, unspecified, uncomplicated - Other ascites - Other alf (current) drug therapy - Patient's other noncompliance with medication regimen for other reason - Underdosing of carbonic-anhydrase inhibitors, benzothiadiazides and other diuretics, initial encounter - Unspecified asthma, uncomplicated - Unspecified cirrhosis of liver - Unspecified viral 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 coma 05/05/2024 16:35 [facility] [place] TYPE: Emergency COMPLAINT: - SHORTNESS OF BREATH DIAGNOSES: - Allergy status to narcotic agent - Essential (primary) hypertension - Hepatic failure, unspecified without coma - Nicotine dependence, unspecified, uncomplicated - Other alf (current) drug therapy - Pleural effusion, not elsewhere classified - Shortness of breath - Unspecified asthma, uncomplicated 04/27/2024 20:[address] 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 - Unspecified abdominal pain - Unspecified asthma, uncomplicated - Unspecified viral 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 coma 04/14/2024 23:06 [facility] [place] TYPE: Emergency COMPLAINT: - WEAKNESS DIAGNOSES: - Allergy status to narcotic agent - Chronic hepatic failure without coma - Essential (primary) hypertension - Nicotine dependence, unspecified, uncomplicated - 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 - Pneumonia, unspecified organism [...] - Nicotine dependence, unspecified, uncomplicated - 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 - Pleural effusion, not elsewhere classified - Unspecified asthma, uncomplicated - Upper abdominal pain, unspecified 03/13/2024 14:27 [facility] [place] TYPE: Emergency COMPLAINT: - ABDOMINAL PAIN DIAGNOSES: - Allergy status to narcotic agent - Essential (primary) hypertension - Nicotine dependence, unspecified, uncomplicated - Noninfective gastroenteritis and colitis, unspecified - 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 - Unspecified abdominal pain 03/07/2024 12:55 [facility] [place] TYPE: Emergency COMPLAINT: - ABDOMINAL PAIN DIAGNOSES: - Allergy status to narcotic agent - Essential (primary) hypertension - Nicotine dependence, unspecified, uncomplicated - Other alf (current) drug therapy - Right lower quadrant pain - Unspecified asthma, uncomplicated - Urinary tract infection, site not specified 02/22/2024 20:49 [facility] [place] TYPE: Emergency COMPLAINT: - DIFFICULTY BREATHING DIAGNOSES: - Alcoholic cirrhosis of liver with ascites - Allergy status to narcotic agent - Essential (primary) hypertension - 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
[2024-05-16] MEDS ORDERED: HYDROCODONE/ACETA 5/325 TAB ONE (09:50)
[2024-05-16] MEDS ORDERED: HYDROCODONE/ACETA 5/325 TAB PO ONE (10:00)
[2024-05-16 10:27] LABS: ALBUMIN 1.8 g/dL (3.4-5.0); ALBUMIN/GLOBULIN RATIO 0.34 (1.1-2.4); ANION GAP 4.7 (7-21); BILIRUBIN, TOTAL 4.6 mg/dL (0.2-1.0); BUN/CREATININE RATIO 14.28 (6.0-28.6); CALCIUM 8.3 mg/dL (8.5-10.1); CREATININE, SERUM 1.05 mg/dL (0.70-1.30); POTASSIUM 3.7 mmol/L (3.5-5.1); PROTEIN, TOTAL 7.1 g/dL (6.4-8.2)
[2024-05-16] MEDS ORDERED: FUROSEMIDE 40 MG TAB PO ONE (10:30)
[2024-05-16] MEDS ORDERED: POTASSIUM CHLORIDE 10 MEQ TABCR PO ONE (10:30)
[2024-05-16 10:47] LABS: BASOPHILS 0.7 % (0-2); EOSINOPHILS 2.4 % (0-6); HEMATOCRIT 38.6 % (35.0-50.0); HEMOGLOBIN 13.4 g/dL (12.0-18.0); LYMPHOCYTES 7.1 % (24-44); MCH 35.2 (27-36); MCHC 34.7 g/dl (30-36); MCV 101.6 fl (81-99); MONOCYTES 16.4 % (0-12); NEUTROPHILS 73.4 % (39-80); PLATELET COUNT 120 K/uL (140-440); RDW 17.2 (10.5-15.0)
[2024-05-16 12:37] VITALS: BP 112/91
[2024-05-16] MEDS ORDERED: FAMOTIDINE 20 MG TAB PO ONE (12:45)
== END 2024-05-16 12:45 | disposition home or self-care (01) ==
LOC: ED 09:26
PROVIDERS: Emergency Medicine
DX: R10.13 Epigastric pain (principal); G89.29 Other chronic pain; R60.9 Edema, unspecified; K72.10 Chronic hepatic failure without coma; I10 Essential (primary) hypertension; J45.909 Unspecified asthma, uncomplicated; F17.200 Nicotine dependence, unspecified, uncomplicated; Z88.5 Allergy status to narcotic agent; Z79.899 Other long term (current) drug therapy
CPT/HCPCS: 36415; 80053; 85025; 99284; A9270

== ENCOUNTER 2024-05-23 22:10 | Inpatient (IN) | payer OTHER ==
[~2024-05-23] VITALS: Ht 180.3 cm; Wt 80.1 kg
--- OUTSIDE RECORDS SUMMARY | 2024-05-23 22:16 | XMS ---
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 EYulisa VISIT COUNT (12 MO.) [address] [place] [address] TOTAL 17 NOTE: Visits indicate total known visits. 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 - Unspecified asthma, uncomplicated 05/14/2024 16:07 [facility] [place] TYPE: Emergency COMPLAINT: - ABDOMINAL PAIN DIAGNOSES: - Abdominal distension (gaseous) - Allergy status to narcotic agent - Chronic hepatic failure without coma - Essential (primary) hypertension - Nicotine dependence, unspecified, uncomplicated - Other ascites - Other fpc (current) drug therapy - Patient's other noncompliance with medication regimen for other reason - Underdosing of carbonic-anhydrase inhibitors, benzothiadiazides and other diuretics, initial encounter - Unspecified asthma, uncomplicated - Unspecified cirrhosis of liver - Unspecified viral 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 coma 05/05/2024 16:35 [facility] [place] TYPE: Emergency COMPLAINT: - SHORTNESS OF BREATH DIAGNOSES: - Allergy status to narcotic agent - Essential (primary) hypertension - Hepatic failure, unspecified without coma - Nicotine dependence, unspecified, uncomplicated - Other fpc (current) drug therapy - Pleural effusion, not elsewhere classified - Shortness of breath - Unspecified asthma, uncomplicated 04/27/2024 20:16 [facility] [place] TYPE: Emergency COMPLAINT: - ABDOMINAL/CHEST PAIN DIAGNOSES: - Allergy status to narcotic agent - Chronic hepatic failure without coma - Essential (primary) hypertension - Nicotine dependence, unspecified, uncomplicated - Other ascites - 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 - Pleural effusion in other conditions classified elsewhere - Shortness of breath - Unspecified asthma, uncomplicated - Unspecified viral 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 coma 04/22/2024 23:21 [facility] [place] TYPE: Emergency COMPLAINT: - ABDOMINAL PAIN DIAGNOSES: - Allergy status to narcotic agent - Essential (primary) hypertension - Nicotine dependence, unspecified, uncomplicated - Other ascites - Other fpc (current) drug therapy - Unspecified abdominal pain - Unspecified asthma, uncomplicated - Unspecified viral 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 coma 04/14/2024 23:06 [facility] [place] TYPE: Emergency COMPLAINT: - WEAKNESS DIAGNOSES: - Allergy status to narcotic agent - Chronic hepatic failure without coma - Essential (primary) hypertension - Nicotine dependence, unspecified, uncomplicated - 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 - Pneumonia, unspecified organism - Unspecified asthma, uncomplicated 04/06/2024 14:10 [facility] [place] TYPE: Emergency COMPLAINT: - ABDOMINAL PAIN DIAGNOSES: - Allergy status to narcotic agent - Allergy status to other drugs, medicaments and biological substances - Chronic hepatic failure without coma - Essential (primary) hypertension - Nicotine dependence, unspecified, uncomplicated - Other fpc (current) drug therapy - Pleural effusion, not elsewhere classified - Unspecified abdominal pain - Unspecified asthma, uncomplicated 03/27/2024 16:44 [facility] [place] TYPE: Emergency COMPLAINT: - ABDOMINAL PAIN DIAGNOSES: - Allergy status to narcotic agent - Essential (primary) hypertension - Hepatic failure, unspecified without coma - Liver disease, unspecified - Nicotine dependence, unspecified, uncomplicated - 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 - Pleural effusion, not elsewhere classified - Unspecified asthma, uncomplicated - Upper abdominal pain, unspecified 03/13/2024 14:27 [facility] [place] TYPE: Emergency COMPLAINT: - ABDOMINAL PAIN DIAGNOSES: - Allergy status to narcotic agent - Essential (primary) hypertension - Nicotine dependence, unspecified, uncomplicated - Noninfective gastroenteritis and colitis, unspecified - 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 - Unspecified abdominal pain 03/07/2024 12:55 [facility] [place] TYPE: Emergency COMPLAINT: - ABDOMINAL PAIN DIAGNOSES: - Allergy status to narcotic agent - Essential (primary) hypertension - Nicotine dependence, unspecified, uncomplicated - 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 - Right lower quadrant pain - Unspecified asthma, uncomplicated - Urinary tract infection, site not specified 02/22/2024 20:49 [facility] [place] TYPE: Emergency COMPLAINT: - DIFFICULTY BREATHING DIAGNOSES: - Alcoholic cirrhosis of liver with ascites - Allergy status to narcotic agent - Essential (primary) hypertension - [facility] (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 of systemic steroids - Nicotine dependence, unspecified, uncomplicated - Other ascites - 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 - Pleural effusion in other conditions classified elsewhere - Shortness of breath - Unspecified cirrhosis of liver 02/17/2024 09:45 [facility] [place] TYPE: Emergency COMPLAINT: - TROUBLE BREATHING DIAGNOSES: - Allergy status to narcotic agent - Chronic hepatic failure without coma - Encounter for screening for COVID-19 - Essential (primary) hypertension - Nicotine dependence, unspecified, uncomplicated - Other fpc (current) drug therapy - Pleural effusion, not elsewhere classified - Respiratory disorder, unspecified - Shortness of breath 02/09/2024 10:58 [facility] [place] TYPE: Emergency COMPLAINT: - SOB,STOMACH PAIN DIAGNOSES: - Allergy status to narcotic agent - Calculus of gallbladder without cholecystitis without obstruction - Chronic hepatic failure without coma - Essential (primary) hypertension - Nicotine dependence, unspecified, uncomplicated - 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 - Pleural effusion, [...] Nicotine dependence, unspecified, uncomplicated - 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 - Pleural effusion, not elsewhere classified - Unspecified abdominal pain - Unspecified viral 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 coma 01/22/2024 12:09 [facility] [place] TYPE: Emergency COMPLAINT: - ABDOMINAL PAIN DIAGNOSES: - Allergy status to narcotic agent - Essential (primary) hypertension - Hepatic failure, unspecified without coma - Nausea with vomiting, unspecified - Nicotine dependence, unspecified, uncomplicated - Other fpc (current) drug therapy - Unspecified abdominal pain [...] Nicotine dependence, unspecified, uncomplicated - 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
[2024-05-23] MEDS ORDERED: HYDROMORPHONE HC2 MG PO (22:28)
[2024-05-23] MEDS ORDERED: BUDESONIDE 0.5 MG/2 ML VIAL INH ONE (22:30)
[2024-05-23] MEDS ORDERED: ALBUTEROL SULFATE 0.5% 2.5 MG/0.5 ML VIAL INH ONE (22:30)
[2024-05-23 22:43] LABS: CORONAVIRUS COVID-19 AG NEGATIVE (NEGATIVE); INFLUENZA A AG NEGATIVE (NEGATIVE); INFLUENZA B AG NEGATIVE (NEGATIVE)
[2024-05-23] MEDS ORDERED: methylPREDNISolone SOD SUCC 125 MG/2 ML VIAL IV ONE (23:30)
[2024-05-23] MEDS ORDERED: FUROSEMIDE 100 MG/10 ML VIAL IV ONE (23:30)
[2024-05-24] VITALS (11 sets, daily range): BP systolic 101–134; BP diastolic 44–76
[2024-05-24 00:14] LABS: ALBUMIN 1.8 g/dL (3.4-5.0); ALBUMIN/GLOBULIN RATIO 0.29 (1.1-2.4); ANION GAP 8.6 (7-21); BILIRUBIN, TOTAL 5.1 mg/dL (0.2-1.0); BUN/CREATININE RATIO 10.18 (6.0-28.6); CALCIUM 8.4 mg/dL (8.5-10.1); CREATININE, SERUM 1.08 mg/dL (0.70-1.30); POTASSIUM 3.6 mmol/L (3.5-5.1)
[2024-05-24 00:21] LABS: BASOPHILS 0.3 % (0-2); EOSINOPHILS 0.6 % (0-6); HEMATOCRIT 39.4 % (35.0-50.0); HEMOGLOBIN 13.7 g/dL (12.0-18.0); LYMPHOCYTES 4.5 % (24-44); MCH 35.3 (27-36); MCHC 34.9 g/dl (30-36); MCV 101.3 fl (81-99); MONOCYTES 14.6 % (0-12); PLATELET COUNT 169 K/uL (140-440); RBC 3.89 M/ul (4.3-5.7); RDW 16.6 (10.5-15.0)
[2024-05-24 00:32] LABS: INR 1.38 (0.80-1.30); PARTIAL THROMBOPLASTIN TIME 27.6 Sec (22.9-41.3); PROTIME 16.9 Sec (11.2-14.2)
[2024-05-24] MEDS ORDERED: ondansetron HCL 4 MG/2 ML VIAL IV ONE (00:45)
[2024-05-24] MEDS ORDERED: HYDROmorphone HCL 1 MG/ML SYR IV PRN ×3 (00:45→13:15)
[2024-05-24] MEDS ORDERED: PIPERACILLIN/TAZOBACTAM 4.5 GM in SODIUM CHLORIDE 0.9% 100 ML IV ONE (01:00)
[2024-05-24] MEDS ORDERED: PIPERACILLIN/TAZOBACTAM 4.5 GM VIAL ONE (01:08)
[2024-05-24 01:22] LABS: BILIRUBIN, URINE NEGATIVE (negative); BLOOD/HGB, URINE LARGE (Negative); KETONE, URINE NEGATIVE (Negative); LEUK ESTERASE, URINE NEGATIVE (negative); NITRITE, URINE NEGATIVE (negative)
[2024-05-24] MEDS ORDERED: IBUPROFEN 600 MG TAB PO ONE (01:30)
[2024-05-24 01:41] LABS: BACTERIA, URINE 1+ /hpf (negative); CASTS, URINE NONE SEEN \\lpf; CRYSTALS, URINE NONE SEEN (0-1+); EPITHELIAL CELLS, URINE NONE SEEN /lpf (0-1+); RED BLOOD CELLS, URINE 21-40 /hpf (0-5)
[2024-05-24 01:42] LABS: COLLECTION TYPE, URINE CLEAN CATCH; REFLEX CULTURE, URINE No (No)
[2024-05-24] MEDS ORDERED: ALBUTEROL SULFATE 0.083% 3 ML VIAL INH PRN ×2 (01:45→02:30)
--- NOTE | 2024-05-24 02:29 | NUR ---
REPORT RECEIVED FROM ER NURSECHELY. PATIENT ADMITTED TO 109 VIA BED. PATIENT ORIENTED TO ROOM, VS OBTAINED AND RECORDED. ASSESSMENT COMPLETED.
--- NOTE | 2024-05-24 02:31 | NUR ---
ZOEY IS BED ON A 3L NC W/HUMIDIFICATION. HOB IS ELEVATED TO 49 DEGREES. ZOEY IS ABLE TO DO THE CORNET LEVEL 5 W/O DIFFICULTY OR INCREASED S/S OF RESPIRATORY DISTRESS.
[2024-05-24] MEDS ORDERED: ALBUTEROL/IPRATROPIUM 3 ML NEB INH SCH ×2 (04:00→08:00)
--- NOTE | 2024-05-24 04:39 | NUR ---
PATIENT RESTING WITH EYES CLOSED, RESP EVEN AND UNLABORED. NC IN PLACE AT 2L. NO NEEDS IDENTIFIED, CALL LIGHT IN REACH.
--- NOTE | 2024-05-24 05:16 | NUR ---
VS OBTAINED AND RECORDED. DIAPHORETIC, AFEBRILE AT THIS TIME. PATIENT REPORTS THIS HAPPENS SOMETIMES IN HIS SLEEP AND HE FEELS HOT. TEMP TURNED DOWN IN ROOM PER PATIENT REQUEST. DENIES OTHER NEEDS, CALL LIGHT IN REACH.
--- NOTE | 2024-05-24 05:40 | NUR ---
CALL PLACED TO MD REGARDING PATIENTS 0400 LACTIC ACID LABS. NO NEW ORDERS AT THIS TIME.
[2024-05-24] MEDS ORDERED: ondansetron HCL 4 MG/2 ML VIAL IV PRN (07:00)
[2024-05-24] MEDS ORDERED: BUDESONIDE 0.5 MG/2 ML VIAL INH SCH ×2 (08:00)
--- NOTE | 2024-05-24 08:10 | NUR ---
Patient resting in bed, eyes closed, respirations even and non labored. Patient has no notable distress. Male family member sleeping on couch in room. Call light within reach.
[2024-05-24] MEDS ORDERED: LACTULOSE 20 GM/30 ML CUP PO SCH (09:00)
--- NOTE | 2024-05-24 09:48 | NUR ---
LAB UNABLE TO DRAW LACTIC. DR ELLIS NOTIFIED AND STATED OK TO SKIP THIS DRAW AND JUST REPEAT TOMORROW AM. LAB NOTIFIED.
--- NOTE | 2024-05-24 11:00 | NUR ---
MESSAGE LEFT AT CLINIC TO REQUEST PCP RECORDS FOR PT PER ORDER.
--- NOTE | 2024-05-24 11:20 | NUR ---
Patient resting in bed, easily wakes to verbal stimuli. Pt is alert/oriented x3. Patient reports he is a bit short of breath, he states "that's my usual". Lung sounds are wheezy, unchanged from morning assessment, sp02 96% at this time. Call light within reach of pt.
[2024-05-24] MEDS ORDERED: PHARMACY RENAL DOSE ADJUSTMENT 1 DOSE MISC PO SCH (12:00)
[2024-05-24] MEDS ORDERED: VENTOLIN HFA18 GM INH (12:06)
[2024-05-24 12:26] LABS: PROTEIN, TOTAL 6.7 g/dL (6.4-8.2)
--- NOTE | 2024-05-24 12:54 | NUR ---
Dr. Greene at bedside with CHRISTIE Quick, whom is assisting with bedside paracentesis.
--- NOTE | 2024-05-24 12:59 | NUR ---
JERRY IN PHARMACY NOTIFIED OF DR VILLAREAL VERBAL ORDER FOR ALBUMIN, STATES HE WILL PLACE ORDER.
--- NOTE | 2024-05-24 13:08 | NUR ---
LIDA from Dr. Greene to place order for dilaudid 0.5-1.5mg iv q2 hour as needed for pain and post op stat chest x-ray s/p right thoracentesis.
--- NOTE | 2024-05-24 13:10 | NUR ---
BEDSIDE THORACENTESIS COMPLETED WITH DR. VILLAREAL. 3560 ML OF FLUID OBTAINED IN VACU-SEAL CONTAINERS. STERILE PROCEDURE. SPECIMENS SENT TO LAB. PATIENT TOLERATED WITH OXYGEN VIA NC. BANDAID APPLIED TO RIGHT MIDDLE THORAX. REPROT TO PRIMARY RN ON PATIENT'S NEED OF STAT XRAY AND PAIN MEDICATIONS.
[2024-05-24] MEDS ORDERED: ALBUMIN HUMAN 25% 100 ML BTL IV ONE (13:15)
--- NOTE | 2024-05-24 13:20 | NUR ---
Admin dilaudid 1.5mg for reports of 9/10 right rib pain. Pt is on 2L oxygen, sp02 93% at this time. Patient in bed at this time.
[2024-05-24 13:53] LABS: APPEARANCE, BODY FLUID YELLOW, CLEAR; WBC, BODY FLUID 63
[2024-05-24 13:54] LABS: MONONUCLEAR CELLS, BODY FLUID 74; PH, BODY FLUID 7.631; PMNS, BODY FLUID 26; RBC, BODY FLUID 43; SOURCE, BODY FLUID Pleural fluid
--- NOTE | 2024-05-24 15:10 | NUR ---
AFTER I WAS FINISHED WITH HIS AFTERNOON VITALS. PATIENT ASKED ME TO STRAIGHTEN UP HIS BLANKETS.
--- NOTE | 2024-05-24 15:34 | NUR ---
PT LAYING IN BED AT THIS TIME, PT REPORTS NO CURRENT SOB, 2L NC IN PLACE. PT HAS NO CONCERNS AT THIS TIME CALL LIGHT IN REACH.
--- NOTE | 2024-05-24 15:54 | NUR ---
PT LAYING IN BED REPORTING PAIN IN THE RIGHT LOWER CHEST WHILE BREATHING/COUGHING. PT GIVEN PRN DILAUDID (SEE EMAR). PT HAS NO OTHER CONCERNS AT THIS TIME. PT IN ROOM WITH PHARMACY CALL LIGHT IN REACH.
[2024-05-24] MEDS ORDERED: FUROSEMIDE80 MG PO (16:28)
[2024-05-24] MEDS ORDERED: POTASSIUM CHLO20 ME2 PO (16:29)
[2024-05-24] MEDS ORDERED: LACTULOSE10 GM/151 PO (16:29)
--- NOTE | 2024-05-24 16:35 | NUR ---
MED REC COMPLETE
--- NOTE | 2024-05-24 17:15 | NUR ---
PT LAYING IN BED, PT REPORTS NO SOB AT THIS TIME. PT HAS PAIN BUT IS TOLERABLE, PT HAS CALL LIGHT IN REACH AND NO REQUESTS AT THIS TIME.
--- NOTE | 2024-05-24 18:02 | NUR ---
PT LAYING IN BED TALKING ON PHONE TO , PT IS IN NO PAIN AT THIS TIME AND REPORTS NO SOB. PT HAS NO CONCERNS AT THIS TIME CALL LIGHT IN REACH.
--- NOTE | 2024-05-24 19:20 | NUR ---
RECEIVED REPORT FROM DAY SHIFT RN. PATIENT IS RESTING IN BED WATCHING TV. PATIENT DENIES ANY NEEDS AT THIS TIME. CALL LIGHT IN REACH.
--- NOTE | 2024-05-24 20:22 | NUR ---
PATIENTS VITALS TAKEN AND RECORDED. INTAKE AND OUTPUT RECORDED. PATINETS ATTEND CHANGED. MALE PURWICK IN PLACE. PATIENTS INTAKE AND OUTPUT RECORDED. PM MEDS GIVEN PER ORDER. PATIENT RATES PAIN AT AN 8/10, PRN PAIN MEDICATION GIVEN PER ORDER. PATIENT IS ON 2L VIA NC AND DENIES ANY SOB. PATIENT UPDATED ON PLAN OF CARE FOR TACTICAL INTELLIGENCE OFFICER AND ALL QUESTIONS ANSWERED. PATIENTS IVS X2 FLUSHED AND SL PER ORDER. PATEINT DENIES ANY FURTHER NEEDS. CALL LIGHT IN REACH. BED ALARM ON FOR SAFETY.
--- NOTE | 2024-05-24 21:10 | NUR ---
ZOEY IS AWAKE IN BED ON A 2L NC WATCHING TV. HOB IS AT 30 DEGREES. ZOEY IS ABLE TO USE THE CORNET LEVEL 5 W/O DIFFICULTY OR S/S OF INCREASED RESPIRATORY DISTRESS. ZOEY IS WILLING TO QUIT SMOKING. SMOKING CESSATION WAS PROVIDED.
--- NOTE | 2024-05-24 22:02 | NUR ---
PATIENT IS RESTING IN BED ON RIGHT SIDE WATCHING TV. PATIENT REPORTS IMPROVEMENT IN PAIN. PATIENT RATES PAIN AT A 4/10 AND PATIENT DENIES INTERVENTION AT THIS TIME. PATIENT REMAINS ON 2L VIA NC. PATIENT DENIES ANY SOB. CPOX IN USE. PATIENT DENIES ANY NEEDS. CALL LIGHT IN REACH. BED ALARM ON FOR SAFETY.
[2024-05-25] VITALS (23 sets, daily range): BP systolic 96–157; BP diastolic 78–123
--- NOTE | 2024-05-25 00:27 | NUR ---
PATIENT IS RESTING IN BED ON LEFT SIDE WITH EYES CLOSED, CPOX IN USE. NAD NOTED. CALL LIGHT IN REACH.
--- NOTE | 2024-05-25 01:31 | NUR ---
ZOEY IS ASLEEP ON A 2L NC.
--- NOTE | 2024-05-25 02:36 | NUR ---
INTO PATIENTS ROOM TO OBTAIN VITALS. PATIENT REPORTS SOB. PATIENTS VITALS OBTAINED AND TITRATED TO 3L VIA NC. RT IN ROOM TO ADMIN PRN NEB. PATIENT REPORTS 8/10 PAIN IN HIS ABD, PRN PAIN MEDICATION GIVEN PER ORDER. PATIENT REPORTS "I AM MORE COMFOTABLE NOW". PATIENT DENIES ANY FURTHER NEEDS. CALL LIGHT IN REACH.
--- NOTE | 2024-05-25 03:51 | NUR ---
PATIENT IS RESTING IN BED WATCHING TV. PATIENT DENIES ANY NEEDS. CALL LIGHT IN REACH. SON AT BEDSIDE AND DENIES ANY NEEDS.
[2024-05-25 05:46] LABS: BASOPHILS 0.1 % (0-2); HEMATOCRIT 32.5 % (35.0-50.0); HEMOGLOBIN 11.3 g/dL (12.0-18.0); LYMPHOCYTES 2.3 % (24-44); MCH 35.2 (27-36); MCHC 34.8 g/dl (30-36); MCV 101.4 fl (81-99); MONOCYTES 7.9 % (0-12); NEUTROPHILS 89.7 % (39-80); PLATELET COUNT 95 K/uL (140-440); RBC 3.21 M/ul (4.3-5.7); RDW 16.6 (10.5-15.0)
--- NOTE | 2024-05-25 05:51 | NUR ---
PATIENT REPOSITIONED IN BED. PATIENTS VITALS TAKEN AND RECORDED. PLACED NEW PUREWICK ON PATIENT. PATIENTS INTAKE AND OUTPUT RECORDED. PATIENT ASSISTED TO REPOSITIONED IN BED. PATIENT REMAINS ON 3L VIA NC. PATIENT IS ON CPOX. PATIENT DENIES ANY P[AIN OR SOB AT THIS TIME. PATIENT DENIES ANY FURTHER NEEDS. CALL LIGHT IN REACH. BED ALARM ON FOR SAFETY.
[2024-05-25 06:05] LABS: ALBUMIN 2.1 g/dL (3.4-5.0); ALBUMIN/GLOBULIN RATIO 0.5 (1.1-2.4); ANION GAP 7.1 (7-21); BILIRUBIN, TOTAL 2.3 mg/dL (0.2-1.0); BUN/CREATININE RATIO 14.5 (6.0-28.6); CALCIUM 8.5 mg/dL (8.5-10.1); CREATININE, SERUM 1.31 mg/dL (0.70-1.30); MAGNESIUM 1.7 mg/dL (1.8-2.4); POTASSIUM 4.1 mmol/L (3.5-5.1); PROTEIN, TOTAL 6.3 g/dL (6.4-8.2)
[2024-05-25] MEDS ORDERED: HYDROmorphone HCL 2 MG TAB PO PRN (07:15)
--- NOTE | 2024-05-25 07:36 | NUR ---
Patient resting in bed, eyes closed, respirations non labored. Pt on 3L oxygen per nc, sp02 93% at this time. Personal supplies and call light within reach.
--- NOTE | 2024-05-25 07:57 | CONS ---
[facility] [address], [place] [address] Signed DATE OF CONSULTATION: 05/24/2024 CHIEF COMPLAINT: Recurrent right pleural effusion with shortness of breath. HISTORY OF PRESENT ILLNESS: Tommy is a 59-year-old gentleman who has end-stage liver disease associated with what sounds like hepatitis C virus and alcohol use in the past. It sounds like he went from here down to [place] for a while and was clean, but eventually developed his end-stage liver failure. He has come back to our ER, I think to be closer to his family. He has only been here since January 2024. He established with Dr. Piedra. It sounds like he has had three or four ultrasound-guided thoracentesis for the right side. There is mention he may have had a paracentesis, but I am not sure. He came in last night around midnight and I was called by the ER physician as a local general surgeon on-call. He was admitted to our Internal Medicine service. It was felt that he could have his thoracentesis in the morning. He is a DNR, DNI. He has been through this several times. He is well aware of the procedure and his lung re-expanding and the pain that comes with. His son, Emeterio is with him in the room. PAST MEDICAL HISTORY: End-stage liver disease, asthma, hepatitis C virus, hypertension, ascites and right pleural effusion. PAST SURGICAL HISTORY: Right knee surgery, left hip surgery, ultrasound-guided thoracentesis starting in January 2024 and at least one in April 2024 and again in May 2024. He said he normally runs 30 days apart, but this one was 16 days. Unfortunately, he was not feeling good and he stopped his Lasix about a week ago. SOCIAL HISTORY: Apparently he smokes. He does not drink anymore. He has used meth in the past. He uses some marijuana. He has been IV drug abuser in the past. Dr. Mars Piedra is his primary care provider. He prefers the [facility]. His son is Emeterio at [phone]. He is a DNR, DNI. FAMILY HISTORY: None. REVIEW OF SYSTEMS: He had 10 systems reviewed and the pertinent positives were included in the above. ALLERGIES: Codeine, cough syrup gave him a rash. Electronically Signed By: AMANDA VILLAREAL MD 05/25/24 0757 PATIENT NAME: KIAH MCDUFFIE CONSULTATION DATE OF : 63 REPORT #: [id number] PHYSICIAN: AMANDA VILLAREAL MD PCP: MARS PIEDRA MD REPORT IS CONFIDENTIAL AND NOT TO BE RELEASED WITHOUT AUTHORIZATION [facility] [address], [place] [address] Signed MEDICATIONS: 1. Dilaudid. 2. Lasix. 3. Spironolactone. 4. Potassium chloride. 5. Lactulose. PHYSICAL EXAMINATION: VITAL SIGNS: Blood pressure is 103/69, his heart rate is 94, his respiratory rate 15, and temperature is 97.5. He is 96% on 2 L nasal cannula. He is 5 feet 11 inches tall, 79 kg with a body mass index of 24. GENERAL: oTmmy is a 59-year-old gentleman, lying in the left lateral decubitus position in his hospital bed. He is very thin and disheveled. He has no breath sounds on the right. The left is clear to auscultation. Heart is regular rhythm without murmur. ABDOMEN: Soft, nontender without any obvious fluid wave, very minimal distention. LABORATORY DATA: His white blood count 7, hemoglobin 13, mean cell volume is 101, neutrophils 80, and platelets 169. His creatinine is 1.08. His lactic acid was 3, went up to 5. His urine showed some blood. His total bilirubin is 5.1, AST 61, ALT 24, and alkaline phosphatase 109. INR is 1.38. Albumin is 1.8. His COVID was negative. His influenza A and B were negative. His blood cultures are pending. RADIOGRAPHIC STUDIES: A chest x-ray is reviewed and he has complete opacification of the right hemithorax. ASSESSMENT AND PLAN: Tommy is a 59-year-old gentleman who presents with end-stage liver disease and recurrent right pleural effusion. He has been admitted to the Medical Service. I have been asked to see him for a thoracentesis. I met with Tommy and his son and reviewed all this with him in detail. He is very familiar with this whole process at this point. He knows there is risk including, but not limited to bleeding, infection, scarring, change in contour of the skin as well as pneumothorax requiring chest tube placement and flash pulmonary edema with associated mortality. I also talked to him in some detail about seeing our Hepatology team at [facility]. He tells me he cannot recall having a liver biopsy and he is not aware of any FibroSure study. He said he has family to get him there as far as transportation. He had expressed understanding and wished to proceed with a right thoracentesis. Electronically Signed By: AMANDA VILLAREAL MD 05/25/24 0757 PATIENT NAME: KIAH MCDUFFIE CONSULTATION DATE OF : 63 REPORT #: [id number] PHYSICIAN: AMANDA VILLAREAL MD PCP: MARS PIEDRA MD REPORT IS CONFIDENTIAL AND NOT TO BE RELEASED WITHOUT AUTHORIZATION [address] [place], [place] [address] Signed Amanda Villareal MD [facility] /[id number] cc: MD Mars Perez MD Copies: AMANDA VILLAREAL MD, RUSSEL J MD ~ Electronically Signed By: AMANDA VILLAREAL MD 05/25/24 0757 PATIENT NAME: KIAH MCDUFFIE CONSULTATION DATE OF : 63 REPORT #: [id number] PHYSICIAN: AMANDA VILLAREAL MD PCP: MARS PIEDRA MD REPORT IS CONFIDENTIAL AND NOT TO BE RELEASED WITHOUT AUTHORIZATION
--- NOTE | 2024-05-25 07:57 | OR ---
[facility] [address], [place] [address] Signed DATE OF OPERATION: 05/24/2024 SURGEON: Amanda Villareal MD PREOPERATIVE DIAGNOSES: 1. End-stage liver disease. 2. Recurrent right pleural effusion. POSTOPERATIVE DIAGNOSIS: 1. End-stage liver disease. 2. Recurrent right pleural effusion. PROCEDURES: Right thoracentesis (3560 mL thin straw-colored fluid). ESTIMATED BLOOD LOSS: None. INDICATIONS: Tommy is a 59-year-old gentleman who has a history of alcohol use and hepatitis C virus associated with IV drug abuse. Apparently, he had been down in [place] for a while when he clinically developed his liver failure. He is back here in [place], [place] to be closer to family. He just established in January [address]24. Dr. Piedra has been helping him as his primary care provider. He has had three previous thoracenteses from what I can tell from the computer. It looks like they are all ultrasound-guided. He says they normally take off around 2.5-3 L of fluid. He is very aware that when his lung re-expands it is quite painful. He has come back to the ER last night and I was called around midnight with respect to the above. He was admitted to the Internal Medicine Service. He knows he is short of breath and he has been lying in a left lateral decubitus position. I met with Tommy and his son and we went over the above findings in detail. He is very familiar with thoracentesis. He knows there is risk including, but not limited to bleeding, infection, scarring, change in contour of the skin, pneumothorax requiring chest tube placement as well as flash pulmonary edema with associated mortality. He has expressed understanding and would like to proceed. PROCEDURE NOTE: Tommy was placed in the sitting position over the top of our [place] stand with two pillows. He is very familiar with this process. His right posterior chest was prepped and draped in the usual sterile fashion. We could see the Band-Aid from his previous thoracentesis. We went up to one rib and that area was anesthetized with 1% lidocaine Electronically Signed By: AMANDA VILLAREAL MD 05/25/24 0757 PATIENT NAME: KAVITA MCDUFFIE OPERATIVE REPORT DATE OF : 63 REPORT #: [id number] PHYSICIAN: AMANDA VILLAREAL MD PCP: MARS PIEDRA MD REPORT IS CONFIDENTIAL AND NOT TO BE RELEASED WITHOUT AUTHORIZATION [facility] [address] [place], [place] [address] Signed with [facility]. We made a small deja in the skin with the tip of the knife and then inserted our needle and catheter together into his chest very slowly and carefully. We were able to withdraw thin straw-colored serous fluid. We advanced the catheter and withdrew the needle. We hooked that up to our vacuum containers and withdrew 3560 mL of thin serous straw-colored fluid. Our hospitalist had written some orders for cultures and other studies on the fluid. After this, a Band-Aid was applied. Of course, Tommy's lung will re-expand and it took him a few minutes of deep breathing and coughing to get it completely re-expanded. He is feeling much better at this point. The chest x-ray which just completed and he does have a small amount of fluid that persists inferiorly and laterally. I did not see any obvious pneumothorax. Kavita then was able to lay back down supine in the hospital bed. He wanted to son present for the entire time. Overall, he tolerated procedure quite well. Amanda Villareal MD [facility] /[id number] cc: MD Amanda Khalil MD Copies: MARS PIEDRA MD, ANDREW L MD ~ Electronically Signed By: AMANDA VILLAREAL MD 05/25/24 0757 PATIENT NAME: KAVITA MCDUFFIE OPERATIVE REPORT DATE OF : 63 REPORT #: [id number] PHYSICIAN: AMANDA VILLAREAL MD PCP: MARS PIEDRA MD REPORT IS CONFIDENTIAL AND NOT TO BE RELEASED WITHOUT AUTHORIZATION
[2024-05-25] MEDS ORDERED: ALBUTEROL/IPRATROPIUM 3 ML NEB INH SCH (08:00)
--- NOTE | 2024-05-25 08:20 | NUR ---
RT in room with patient at this time. Patient's oxygen demand increased to 6L from 3L per RT. Patient sp02 87% at this time. Patient is short of breath, lung sounds are wheezy/crackles/diminished. Patient is very distressed. Dr. Michaels notified per chayo, he arrived to bedside within a couple minutes to see pt. Verbal order obtained from Dr. Michaels to move patient to CCU.
--- NOTE | 2024-05-25 08:25 | NUR ---
PT WAS BROUGHT OVER TO CCU ROOM 129 FOR RESP DISTRESS. REPORT RECEIVED FROM ERWIN SORIANO. PT ARRIVES AWAKE AND ALERT, MOANING WITH EACH BREATH, HE DOES REPORT ABD PAIN AND SEEMS ANXIOUS. 40MG IV LASIX GIVEN WITH 0.5MG IV DILAUDID GIVEN BY ERWIN SORIANO. RT IS PRESENT AND IMMEDIATLEY PUTS PT ON BIPAP. ON BIPAP PTS SATS OR 90'S, LABORED RESPIRATIONS. LUNGS HAVE CRACKLES IN BILAT BASES, DIM IN BOTH BASES, MORE OF RIGHT. DR ELLIS ALSO AT BEDSIDE EVALUATING PT.
[2024-05-25] MEDS ORDERED: HYDROmorphone HCL 1 MG/ML SYR IV ONE ×2 (08:30→15:30)
[2024-05-25] MEDS ORDERED: ondansetron HCL 4 MG/2 ML VIAL IV PRN (08:30)
[2024-05-25] MEDS ORDERED: FUROSEMIDE 40 MG/4 ML VIAL IV ONE (08:30)
--- NOTE | 2024-05-25 08:50 | NUR ---
Patient to CCU dept from med-surg per Dr. Michaels's bedside verbal order. CCU report provided in CCU to CHRISTIE Barber, all questions answered. RT at bedside, pt to BIPAP-see RT settings for further details. Pt awake, alert and oriented x3. Patient is short of breath, labored breathing, sp02 92% per monitor. One time dose of IV lasix 40mg and dilaudid 0.5mg IV admin at this time. Patient reports abdominal pain. Abdomen is very firm and distended. HOB elevated. Dr. Michaels on unit at this time. CHRISTIE Barber to take over care.
--- NOTE | 2024-05-25 09:00 | NUR ---
PT IS RESTFUL ON BIPAP AT THIS TIME, TOLERATING IT WELL WITH SPO2 94%. SON IN ROOM TRYING TO TAKE A NAP.
--- NOTE | 2024-05-25 10:30 | NUR ---
PT CONT TO WEAR BIPAP, HAS VOIDED TWICE WITH URINE OUTPUT 600ML. HR 100'S SINUS TACHYCARDIA.
--- NOTE | 2024-05-25 11:15 | NUR ---
PT RESTING WEARING BIPAP, SPO2 94%, RR 11. HR 95.
--- NOTE | 2024-05-25 11:55 | NUR ---
DR ANDERSENUNG IN TO DISCUSS PLAN WITH PT. PT HAS BEEN ON NASAL CANNULA 3L WITH SPO2 92%, RR 20 FOR ABOUT 10 MINUTES NOW.
--- NOTE | 2024-05-25 12:05 | NUR ---
PT VERY EMOTIONAL AFTER TALKING WITH DR ELLIS REGARDING PLAN OF CARE, CRYING, STATES "ITS PRETTY HARD TO TALK ABOUT DYING WITH YOUR SON LAYING RIGHT THERE". OFFERED PASTORAL CARE AND PT STATES "I WOULD LOVE THAT". GAS ADJUSTER TO CALL IN PASTORAL CARE.
--- NOTE | 2024-05-25 13:42 | NUR ---
PASTOR CORONA IN TO SEE PT. PT IS 88% ON NASAL CANNULA. PT ALSO VERY DROWSY, HAVING A HARD TIME STAYING AWAKE.
--- NOTE | 2024-05-25 13:59 | NUR ---
HS CALLED TO LET ME KNOW PT WAS REQUESTING PASTORAL CARE. NURSE CAME IN AND INTRODUCED ME TO PT. SON WAS LAYING ON THE COUCH WHEN I ENTERED THE ROOM. PT SEEMED TO HAVE A HARD TIME FOCUSING OR TALKING CLEARLY. PRAYED WITH PT. PT CRIED SOME WHILE TRYING TO TALK. PT CLOSED EYES AND APPEARED TO RELAX SOME. I CHECKED IN WITH SON WHO SAID HE WAS DOING OKAY.
--- NOTE | 2024-05-25 14:02 | NUR ---
PT PLACED BACK ON BIPAP, SATS DOWN TO 82-88% ON NASAL CANNULA. SPO2 UP TO 98% ONCE BIPAP WAS REPLACED. PT WOKE UP WHEN SPIRITUAL CARE WAS HERE AND WAS DISORIENTED AND DROWSY, HAD A HARD TIME STAYING AWAKE FOR CONVERSATION. DR ELLIS ROUNDED ON PT AND UPDATED, ORDER GIVEN FOR VBG.
[2024-05-25 14:04] LABS: PH, VENOUS 7.355 (7.31-7.41)
[2024-05-25] MEDS ORDERED: HYDROmorphone HCL 1 MG/ML SYR ONE (15:19)
--- NOTE | 2024-05-25 16:53 | NUR ---
PT RESTING ON BIPAP, HR 110, SPO2 91%, RR 13.
[2024-05-25 17:53] LABS: GLUCOSE FLUID SOURCE Pleural fluid (()); GLUCOSE,BODY FLUID 142 mg/dL (()); LACTATE DEHYDROGENASE TOTAL,BF 58 U/L (()); LDH FLUID SOURCE Pleural fluid (()); TOTAL PROTEIN FLUID SOURCE Pleural fluid (())
--- NOTE | 2024-05-25 19:29 | NUR ---
PT CONT TO REST ON BIPAP, SPO2 94%, SETTINGS UNCHANGED.
--- NOTE | 2024-05-25 19:34 | NUR ---
ZOEY IS ASLEEP ON THE V60 BIPAP 14/6, RR 16, FIO2 30%.
--- NOTE | 2024-05-25 20:00 | NUR ---
PATIENT WAKES EASILY TO VOICE. ORIENTED TO ALL EXCEPT TIME. PATIENT IS DROWSY AND REPORTS FEELING LIKE HE'S BEEN SLEEPING FOR DAYS. PATIENT PLACED ON 4L NC AFTER BIPAP REMOVED. LUNG SOUNDS ARE CLEAR AND DIM IN THE UPPERS; WITH COARSE LUNG SOUNDS ON RLL AND DIMINISHED LLL. ABD IS FIRM AND TENDER; PATIENT REPORTS THIS HIS NORMAL BUT DOES STATE "IT MIGHT BE A LITTLE WORSE THAN NORMAL". PATIENT REPORTS NAUSEA; PRN ZOFRAN PROVIDED. 2+ EDEMA NOTED IN ROSA UPPER AND LOWER EXTREMITITES. PATIENT REPORTS PAIN IN ABD IS WELL CONTROLLED AT THIS TIME; 07/12. IV SITE WNL X2.
--- NOTE | 2024-05-25 21:00 | NUR ---
UPDATED ON PATIENT'S TEMP. ORDERS PLACED BY MD FOR ABX AND PRN MEDS.
[2024-05-25] MEDS ORDERED: CEFTRIAXONE SODIUM 2 GM in SODIUM CHLORIDE 0.9% 100 ML IV SCH (21:22)
[2024-05-25] MEDS ORDERED: AZITHROMYCIN 500 MG in DEXTROSE 5% 250 ML IV SCH (21:23)
[2024-05-25] MEDS ORDERED: ACETAMINOPHEN 500 MG TAB PO PRN (21:30)
[2024-05-25] MEDS ORDERED: IBUPROFEN 800 MG TAB PO PRN (21:30)
[2024-05-25] MEDS ORDERED: PROCHLORPERAZINE EDISYLATE 10 MG/2 ML VIAL IV PRN (21:30)
[2024-05-25] MEDS ORDERED: MAGNESIUM SULFATE 2 GM/50 ML BAG IV ONE (21:30)
[2024-05-25] MEDS ORDERED: LORazepam 2 MG/ML VIAL IV PRN (21:30)
[2024-05-25] MEDS ORDERED: AZITHROMYCIN 500 MG VIAL ONE (21:35)
[2024-05-25] MEDS ORDERED: CEFTRIAXONE SODIUM 2 GM VIAL ONE (21:35)
[2024-05-25 21:54] LABS: ANION GAP 9.1 (7-21); BUN/CREATININE RATIO 18.24 (6.0-28.6); CALCIUM 8.9 mg/dL (8.5-10.1); CREATININE, SERUM 1.37 mg/dL (0.70-1.30); POTASSIUM 4.1 mmol/L (3.5-5.1)
--- NOTE | 2024-05-25 22:14 | NUR ---
PATIENT REPOSITIONED IN BED. ATTENDS CHANGED AND NEW MALE EXTERNAL CATH PLACED. CHANTALE CARE DONE. SKIN INTACT. TESTICULES ARE SLIGHTLY SWOLLEN AND RED. ELEVATED TOLERATED. PATIENT PROVIDED PRN TYLENOL FOR FEVER. IV ABX STARTED PER ORDER; UPDATED PATIENT ON PLAN OF CARE.
--- NOTE | 2024-05-25 23:00 | NUR ---
PATIENT SITTING UP AT EDGE OF BED VISITING WITH HIS SON. PATIENT IS TIRED AND FORGETFUL BUT HOLDS CONVERSATION WITH HIS SON. PATIENT REPORTS ONGOING GI UPSET. PRN COMPAZINE PROVIDED.
--- NOTE | 2024-05-25 23:38 | NUR ---
ZOEY IS IN AND OUT OF SLEEP ON A 4L NC. HE WILL BE PLACED BACK ON THE BIPAP SOON HIS BREATHING TREATMENT IS OVER,
[2024-05-25] MEDS ORDERED: MAGNESIUM SULFATE 50 ML IV ONE (23:39)
--- NOTE | 2024-05-25 23:54 | NUR ---
PATIENT BACK ON BIPAP PER RT. PATIENT APPEARS COMFORTABLE IN BED. EYES CLOSED. VS STABLE. LIGHTS DIMMED. CALL LIGHT IN REACH.
[2024-05-26] VITALS (22 sets, daily range): BP systolic 106–157; BP diastolic 77–102
--- NOTE | 2024-05-26 02:00 | NUR ---
PATIENT APPEARS RESTFUL IN BED. EYES CLOSED. TOLERATING BIPAP. VS STABLE. HOB ELEVATED. EXTERNAL MALE CATH IN PLACE AND FUNCTIONING. ALLOW PATIENT TO REST. CALL LIGHT IN REACH.
--- NOTE | 2024-05-26 03:44 | NUR ---
ZOEY IS ASLEEP ON THE V60 BIPAP WITH HOB ELEVATED TO 42 DEGREES. CURRENT BIPAP SETTINGS ARE: IPAP 12, EPAP 6, RR 16, TI 0.8, RISE 2, FIO2 40%.
--- NOTE | 2024-05-26 04:30 | NUR ---
PATIENT CONTINUES TO TOLERATE THE BIPAP WELL. EYES CLOSED. VS STABLE.
[2024-05-26 05:23] LABS: BASOPHILS 0.1 % (0-2); EOSINOPHILS 0.3 % (0-6); LYMPHOCYTES 3.1 % (24-44); MCH 34.8 (27-36); MCHC 34.2 g/dl (30-36); MCV 101.7 fl (81-99); MONOCYTES 11.2 % (0-12); NEUTROPHILS 85.3 % (39-80); PLATELET COUNT 105 K/uL (140-440); RBC 3.44 M/ul (4.3-5.7); RDW 16.8 (10.5-15.0)
[2024-05-26 05:38] LABS: ALBUMIN 2.2 g/dL (3.4-5.0); ALBUMIN/GLOBULIN RATIO 0.49 (1.1-2.4); ANION GAP 6.9 (7-21); BILIRUBIN, TOTAL 2.2 mg/dL (0.2-1.0); BUN/CREATININE RATIO 19.6 (6.0-28.6); CALCIUM 8.7 mg/dL (8.5-10.1); CREATININE, SERUM 1.53 mg/dL (0.70-1.30); MAGNESIUM 2.1 mg/dL (1.8-2.4); POTASSIUM 3.9 mmol/L (3.5-5.1); PROTEIN, TOTAL 6.7 g/dL (6.4-8.2)
--- NOTE | 2024-05-26 06:20 | NUR ---
PATIENT RESTING IN BED. WAKES EASILY TO VOICE. REPORTS BEING TIRED BUT DENIES SLEEPING AND DOES NOT WANT THE BIPAP BACK ON AT THIS TIME. 4L NC IN PLACE. PATIENT DENIED PAIN OR GI UPSET AT THIS TIME. VS STABLE. FRESH ICE WATER PROVIDED. ALLOWED PATIENT TO REST. CALL LIGHT IN REACH.
--- NOTE | 2024-05-26 07:55 | NUR ---
REPORT RECEIVED FROM GEMINI SORIANO. PT RESTING IN BED, WEARING BIPAP. RT IN TO DO TOOTIE SOLER.
--- NOTE | 2024-05-26 08:15 | NUR ---
PT AWAKE IN BED RESTING ON NASAL CANNULA. ASSESSMENT DONE. LUNGS HAVE COME COARSE SOUNDS ON UPPER LEFT SIDE, CLEAR ON RIGHT, DIM IN BOTH BASES RIGHT MORE THAN LEFT WITH CRACKLES HEARD. ABD TIGHT/DISTENDED. PT REPORTS THAT HE FEELS MORE SWOLLEN TODAY. BREAKFAST BROUGHT IN BUT HE DOES NOT FEEL LIKE EATING AT THIS TIME, DID DRINK SOME MILK. INITIALLY HE ASKED FOR PAIN MEDICATION AND PO DILAUDID WAS BROUGHT IN BUT THEN HE STATED HE DIDN'T NEED IT AND JUST WANTED TO TAKE A NAP INSTEAD.
[2024-05-26] MEDS ORDERED: LACTULOSE 20 GM/30 ML CUP PO PRN (09:00)
[2024-05-26] MEDS ORDERED: LACTULOSE 20 GM/30 ML CUP PO SCH (09:00)
--- NOTE | 2024-05-26 09:05 | NUR ---
DR HAMILTON IN TO SEE PT.
[2024-05-26] MEDS ORDERED: FUROSEMIDE 40 MG/4 ML VIAL IV SCH (09:15)
--- NOTE | 2024-05-26 09:15 | NUR ---
IV LASIX GIVEN, PT ALSO DECIDED HE WANTED THE DILAUDID AFTER ALL, 2MG PO DILAUDID GIVEN PER EMAR.
--- NOTE | 2024-05-26 10:26 | NUR ---
UR CLINICAL AND CONCURRENT REVIEW: MCG-PER [facility] REVIEW MEET INPT FOR PE. DOES NOTE MEET GL DAY 2, VIARANCE COMPLETED. ODS EOCCO INPT 05/24/24 @ 1002 ORDER MATCHES REG [facility] AUTH RE[facility]. DISCHARGE DISPO PENDING FURTHER EVAL AND FAMILY CONFERENCE 05/28/24
--- NOTE | 2024-05-26 11:00 | NUR ---
PT HAS BEEN RESTFUL, LYING IN BED WITH NASAL CANNULA IN PLACE, SPO2 93%, RR 10. URINE OUTPUT 600ML.
--- NOTE | 2024-05-26 11:43 | NUR ---
RT IN TO DO NEB TX
--- NOTE | 2024-05-26 12:02 | NUR ---
PATIENT ALERT IN BED. DIFFICULTY FOCUSING ON CONVERSATION. PATIENT STATES HE DOES NOT REMEMBER EVER DISCUSSING HOSPICE. PREVIOUS HOSPITALIZATION THIS WAS DISCUSSED AND HE REFUSED HOSPICE PRIOR TO DC TO HOME. CURRENTLY, HE IS SEEING DR. TORO HIS PCP. HE LIVES IN HOUSE THAT DOES HAVE STEPS. STATES HE HAS NO DME AT HOME. HE UTILIZES [employer] OR FRIENDS FOR TRANSPORTATION. STATES HE BELIEVES HE WAS APPROVED FOR MEDICAID SERVICES BUT HE IS NOT SURE WHAT THEY ARE. PATIENT DOES HAVE DIFFICULTY MAINTAINING CONVERSATION. STATES HE WANTS TO CONTINUE TREATMENT AND DOES NOT YET WANT TO CONSIDER HOSPICE. AFTER MEDICAID SERVICES ARE VERIFIED, WILL CONTINUE TO WORK ON DC PLAN FOR PATIENT. WILL CONTINUE TO WORK WITH PATIENT DURING HOSPITALIZATION ON DC PLAN.
--- NOTE | 2024-05-26 12:19 | NUR ---
IN TO GIVE PRN LACTULOSE, PT REPORTS THAT HE THINKS HE IS ABOUT READY TO HAVE A BOWEL MOVMENT. LACTULOSE GIVEN AND PLAN TO RETURN IN 15 MINUTES TO GET PT UP TO BSC.
--- NOTE | 2024-05-26 13:14 | NUR ---
CALLED KAREL KNOX AT [facility] TO VERIFY MEDICAID SERVICES, NO ANSWER. MESSAGE LEFT TO PLEASE CALL BACK TO VERIFY SERVICES.
--- NOTE | 2024-05-26 13:19 | NUR ---
SPOKE WITH KAREL KNOX AT [facility]. PATIENT HAS PENDING APPLICATION FOR [employer] SERVICES. HAS NOT YET BEEN APPROVED. PHONE NUMBER FOR [employer], HIS LIFE SCIENCE TECHNICIAN, . ATTEMPT TO CONTACT [employer] FOR FURTHER INFORMATION REGARDING PATIENT SERVICES, MESSAGE LEFT WITH CONTACT NUMBER TO DISCUSS ELGIBILITY.
--- NOTE | 2024-05-26 13:45 | NUR ---
PT UP TO BSC, FEELS THE NEED TO HAVE A BOWEL MOVMENT. SAT ON COMMODE APPROX 30 MINUTES WITH NO STOOL, BACK TO BED AND WANTS TO SLEEP.
--- NOTE | 2024-05-26 14:56 | NUR ---
IN TO GIVE MORE LACTULOSE, PT WAS SLEEPING, WOKE EASILY, TOOK A SIP OF WATER AND WENT BACK TO SLEEP.
--- NOTE | 2024-05-26 16:10 | NUR ---
PT BACK TO BED AFTER TRYING AGAIN ON THE COMMODE, NO BOWEL MOVEMENT YET. PT HAS INCREASED PAIN AND DISCOMFORT OF ABDOMEN, UPDATED DR HAMILTON. ORDER GIVEN FOR ABD XRAY AND OKAY TO GIVE DILAUDID FOR PAIN. 2MG PO DILAUDID GIVEN. RT IN TO DO NEB, PT CONT ON NASAL CANNULA WITH SPO2 94%.
--- NOTE | 2024-05-26 16:11 | NUR ---
XRAY IN TO DO KUB.
--- NOTE | 2024-05-26 16:51 | NUR ---
PT MORE RESTFUL, NO LONGER MOANING.
--- NOTE | 2024-05-26 17:06 | NUR ---
ORDER FROM DR HAMILTON FOR ENEMA, PT GIVEN SOAP SUDS ENEMA IN BED, WANTING TO LIE IN BED AND LET IT WORK.
--- NOTE | 2024-05-26 18:32 | NUR ---
PT HAD SECOND SOAP SUDS ENEMA WITH RETURN OF VERY LITTLE STOOL, MEDIUM AMOUNT OF FLATUS, REPORTS MINIMAL PAIN/DISTENSION RELIEF AFTER ENEMAS. DR HAMILTON UPDATED, ORDER GIVEN FOR FLEETS ENEMA AND BOWEL REGIMEN.
[2024-05-26] MEDS ORDERED: bisacodyL 10 MG SUPP PR PRN (18:45)
[2024-05-26] MEDS ORDERED: SOD PHOSPHATE/SOD BIPHOSPHATE 132 ML BTL PR ONE (19:00)
[2024-05-26] MEDS ORDERED: ALBUTEROL/IPRATROPIUM 3 ML NEB INH SCH ×2 (20:00)
--- NOTE | 2024-05-26 20:00 | NUR ---
PATIENT USED CALL LIGHT TO CALL FOR HELP. PATIENT REQUESTED TO GET ON BEDSIDE COMMODE TO HAVE A BOWEL MOVEMENT. PATIENT HAD SMALL, HARD BM. SEE I/O CHARTING. PATIENT COMPLAINED OF ABDOMEN PAIN. NURSE MEDICATED DIRECTED. NURSE PERFORMED ASSESSMENT AND OBTAINED VITAL SIGNS. PATIENT IS A TWO PERSON ASSIST TO STAND, PIVOT THEN SIT ON BEDSIDE COMMODE. ASSISTED PATIENT BACK TO BED. CALL LIGHT AND BELONGINGS WITHIN REACH. PATIENT'S SON AT BEDSIDE.
[2024-05-26] MEDS ORDERED: AZITHROMYCIN 500 MG VIAL ONE (20:45)
[2024-05-26] MEDS ORDERED: CEFTRIAXONE SODIUM 2 GM VIAL ONE (20:45)
[2024-05-26] MEDS ORDERED: DOCUSATE SODIUM 100 MG CAP PO SCH (21:00)
[2024-05-26] MEDS ORDERED: LACTULOSE 10 GM/15 ML ML PR ONE (21:45)
--- NOTE | 2024-05-26 22:00 | NUR ---
NURSE ADVISED THAT PATIENT HAD LACTULOSE ENEMA. PATIENT REQUESTED THAT HE HAVE LACTULOSE ENEMA AT MIDNIGHT. PATIENT STATED, "I'M NOT REFUSING. CAN I PLEASE HAVE A BREAK?" NURSE CALLED TELE PHARM TO HAVE MEDICATION RESCHEDULED. PROVIDER AWARE. PATIENT IN BED RESTING. PATIENT CLAIMED THAT PAIN WAS RELIEVED WITH ORAL DILAUDID GIVEN ORDERED. CALL LIGHT AND PATIENT'S BELONGINS WITHIN REACH. NURSE PROVIDED TEACHING ON IMPORTANCE OF LACTULOSE ENEMA. PATIENT VOICED UNDERSTANDING AND AGREED TO HAVE LACTULOSE ENEMA LATER AT MIDNIGHT.
[2024-05-27] VITALS (17 sets, daily range): BP systolic 101–158; BP diastolic 81–121
--- NOTE | 2024-05-27 | NUR ---
PATIENT ASLEEP. EASILY AWAKENED. ASSESSMENT COMPLETED. VITAL SIGNS OBTAIN. PATIENT AFEBRILE. VSS. PATIENT HAD LIGHT BROWN, MEDIUM BM. ENEMA GIVEN ORDERED. PATIENT ON LEFT SIDE. CALL LIGHT AND BELONGINGS WITHIN REACH. ADVISED PATIENT TO HOLD ENEMA FLUID ORDERED AND NURSE WOULD RETURN IN 30 MINUTES OR AT THE REQUEST OF PATIENT TO CLEAN PATIENT AFTER PATIENT HAD ANOTHER BM.
--- NOTE | 2024-05-27 04:00 | NUR ---
PATIENT ASLEEP. PATIENT AWAKENED. A&O TO SELF & PLACE. FOCUSED ASSESSMENT COMPLETED. AFEBRILE. HEART RATE 100-110'S. DENIES CHEST PAIN. PATIENT CLAIMED PAIN IS UNDER CONTROL AT THIS TIME. PATIENT REMAINS ON 4L VIA NC. OXYGEN SATS 90-93%. CALL LIGHT AND BELONGINGS WITHIN REACH.
[2024-05-27 06:11] LABS: ALBUMIN 2.3 g/dL (3.4-5.0); ALBUMIN/GLOBULIN RATIO 0.46 (1.1-2.4); ANION GAP 9.7 (7-21); BILIRUBIN, TOTAL 2.6 mg/dL (0.2-1.0); BUN/CREATININE RATIO 22.36 (6.0-28.6); CALCIUM 8.8 mg/dL (8.5-10.1); CREATININE, SERUM 1.52 mg/dL (0.70-1.30); POTASSIUM 3.7 mmol/L (3.5-5.1); PROTEIN, TOTAL 7.3 g/dL (6.4-8.2)
[2024-05-27 06:13] LABS: BASOPHILS 0.2 % (0-2); EOSINOPHILS 0.6 % (0-6); HEMOGLOBIN 13.1 g/dL (12.0-18.0); LYMPHOCYTES 1.2 % (24-44); MCH 34.8 (27-36); MCHC 34.5 g/dl (30-36); MONOCYTES 7.7 % (0-12); NEUTROPHILS 90.3 % (39-80); PLATELET COUNT 122 K/uL (140-440); RBC 3.76 M/ul (4.3-5.7); RDW 16.3 (10.5-15.0)
[2024-05-27] MEDS ORDERED: BUDESONIDE 0.5 MG/2 ML VIAL ONE (07:50)
[2024-05-27] MEDS ORDERED: BUDESONIDE 0.5 MG/2 ML VIAL INH SCH (08:00)
--- NOTE | 2024-05-27 08:22 | NUR ---
Dr. Gaitan in room for [facility] assessment. Discussed getting patient up and moving with PT today. Continuing PO stool softners and IV lasix. Patient agreeable with plan of care. Assessment complete. Fresh water provided. PAtient denies needs at this time and declines breakfast tray. Call light in reach. rails up x 2.
--- NOTE | 2024-05-27 08:45 | NUR ---
PATIENT HAVING PERIODS OF APNEA WHEN SLEEPING/DROWSY. END TIDAL NC PLACED @ 5 L. SATS 88-90% AND ETCO2 AROUND 30 WHEN AWAKE. PATIENT CONTINUES TO REFUSE BIPAP MASK.
--- NOTE | 2024-05-27 09:08 | NUR ---
RT AND RN AT BEDSIDE. DISCUSSED INCREASED NEED FOR OXYGEN AND RISING CO2 LEVELS AND CONFUSION. PATIENT AGREES TO WEAR BIPAP FOR AN HOUR AT A TIME WITH BREAKS NEEDED. MASK READJUSTED FOR COMFORT.
--- NOTE | 2024-05-27 09:46 | NUR ---
RESTING IN BED. BIPAP IN PLACE. ALLOWED TO REST AT THIS TIME.
--- NOTE | 2024-05-27 09:49 | NUR ---
CHEST X-RAY TAKEN. PATIENT COOPERATIVE AND FOLLOWS COMMANDS. BIPAP REMAINS IN PLACE.
--- NOTE | 2024-05-27 10:01 | NUR ---
PATIENT REMOVES BIPAP MASK AND REQUESTS WATER TO RINSE OUT MOUTH. PATIENT BACK ON NC @ 5 AND SATS 87%. DOES NOT WANT BIPAP BACK ON AT THIS TIME
--- NOTE | 2024-05-27 10:23 | NUR ---
CALL TO DR. HAMILTON REGARDING PATIENT'S NEED FOR MORE OXYGEN AND DECREASED RESP EFFORT. ORDERS FOR MORE IV LASIX AND MORE RESP SUPPORT WITH CONSULT FROM RT. OXY MASK APPLIED OVER THE TOP OF THE NC FOR A TOTAL OF 10 L O2. PATIENT ORIENTED TO ALL BUT TIME. VERY DROWSY AND FALLING ASLEEP BETWEEN QUESTIONS.
[2024-05-27] MEDS ORDERED: FUROSEMIDE 40 MG/4 ML VIAL IV ONE (10:30)
--- NOTE | 2024-05-27 10:34 | NUR ---
PATIENT AGREES TO GET BACK ON BIPAP AFTER EDUCATION ABOUT RESP RATE AND DRIVE.
[2024-05-27] MEDS ORDERED: FUROSEMIDE 100 MG/10 ML VIAL IV SCH (13:00)
--- NOTE | 2024-05-27 13:01 | NUR ---
PATIENT RESTING AND TOLERATING BIPAP. MEDICATED SEE EMAR. PATIENT DOES NOT WAKE TO RN IN ROOM. SON AT BEDSIDE RESTING ON COUCH. CALL LIGHT WITHIN REACH. NO URINE OUTPUT NOTED IN CANNISTER FROM MALE RIANNA. NOTIFIED
--- NOTE | 2024-05-27 13:21 | NUR ---
BLADDER SCAN FOR 360 ML. UPDATED. ALCALA CATHETER ORDERED FOR CLOSER MONITORING
[2024-05-27] MEDS ORDERED: LIDOCAINE 2% VISCOUS 6 ML SYR TOP ONE (13:30)
--- NOTE | 2024-05-27 13:49 | NUR ---
ALCALA CATH PLACED WIHTOUT DIFFICULTY. 300 ML STRAW COLORED URINE RETURNED. PATIENT ANXIOUS AND ASKING TO BE SAT UP AND NOT LAID DOWN. BIPAP STOPPED WHILE PATIENT HAS A DRINK. PATIENT HAVING THOUGHTS AND FEELINGS OF IMPENDING DOOM AND SAYS "I FEEL LIKE THIS IS THE END". BIPAP REPLACED AFTER RESP RATE BACK DOWN TO 5 TO 6 BREATHS A MINUTE. PATIENT COOPERATIVE AND UNDERSTANDS NEED FOR PPV.
--- NOTE | 2024-05-27 14:22 | NUR ---
VISITED DURING SPIRITUAL CARE ROUNDS. PT APPEARED TO BE SLEEPING. DID NOT DISTURB. PROVIDED PRAYER.
--- NOTE | 2024-05-27 14:31 | NUR ---
VISITED DURING SPIRITUAL CARE ROUNDS. PT SUPPORTED BY SON IN ROOM. NEITHER ENGAGED IN CONVERSATION, MINIMAL INTERACTION WITH THERAPY ANIMAL. PT CLEARLY IN EMOTIONAL DISTRESS, APPEARED EXHAUSTED AND BARELY ABLE TO KEEP EYES OPEN. RUBBER TUBING BACKER PROVIDED SUPPORTIVE PRESENCE, PRAYER, FACILITATED INTERACTION WITH THERAPY ANIMAL.
--- NOTE | 2024-05-27 14:46 | NUR ---
PATIENT ON 6 L NC AT THIS TIME. RR 14 AND SATS 90%. DRINKING SIPS OF WATER AND TALKING TO SON.
[2024-05-27] MEDS ORDERED: LACTULOSE 10 GM/15 ML ML PR ONE ×2 (15:45)
[2024-05-27 15:48] LABS: PH, VENOUS 7.397 (7.31-7.41)
--- NOTE | 2024-05-27 15:48 | NUR ---
DR. HAMILTON IN ROOM FOR ASSESSMENT. PATIENT VERY DROWSY AND DISORIENTED. PRN PO LACTULOSE ATTEMPTED AND PATIENT UNABLE TO HOLD CUP TO MOUTH OR OPEN MOUTH FOR ADMIN. ORDER FOR MT LACTULOSE ENEMA RECEIVED. RT IN ROOM FOR ASSESSMENT. HIGH FLOW NC PLACED ON PATIENT. FOR LITERS EXCEEDING 6.
--- NOTE | 2024-05-27 16:42 | NUR ---
LACTULOSE ENEMA GIVEN WITH HELP FROM CHRISTIE JARAMILLO. PATIENT ON LEFT SIDE AT THIS FOR ENEMA TO INSTILL. NO STOOL FROM RECTUM DURING ENEMA. PATIENT REPORTS FEELING URGE TO HAVE BM BUT NO CONTENTS PRODUCED OTHER THAN FLUID FROM ENEMA. PATIENT REMAINS LEFT LATERAL ON HIGH FLOW NC @ 8 L. CALL LIGHT WITHIN REACH
--- NOTE | 2024-05-27 17:23 | NUR ---
PATIENT HAS SMALL LOOSE BOWEL MOVEMENT. REPOSITIONED IN BED. LINENS CHANGED AND WAFFLE MATTRESS PLACED. BED BATH. DR. HAMILTON IN ROOM. PATIENT MORE ALERT AND RESPONSIVE TO DOCTORS PLAN OF CARE.
--- NOTE | 2024-05-27 17:56 | NUR ---
PATIENT BACK ON BIPAP. 45% O2. 16 RR. PATIENT ANXIOUS AND FIGHTING MASK BUT REASSURED AND CALMED BY STAYING AT BEDSIDE UNTIL ABLE TO TAKE BREATHS ALONG WITH MACHINE
--- NOTE | 2024-05-27 19:43 | NUR ---
RECEIVED REPORT FROM DAY SHIFT RN. PATIENT IS RESTING IN BED WITH EYES CLOSED, RR 16. RT AT BEDSIDE. NAD NOTED. CALL LIGHT IN REACH.
[2024-05-27] MEDS ORDERED: CEFTRIAXONE SODIUM 2 GM VIAL ONE (20:20)
[2024-05-27] MEDS ORDERED: AZITHROMYCIN 500 MG VIAL ONE (20:20)
--- NOTE | 2024-05-27 21:04 | NUR ---
PATIENT TAKE OFF BIPAP AND PLACED ON 8L VIA NC. PATIENT PROVIDED SIPS OF WATER. PATIENTS PM MEDS GIVEN PER ORDER. PATIENT REPORTS 8/10 PAIN "ALL OVER", PRN MEDICATION GIVEN PER ORDER. PATIENTS IV ABC INFUSING PER ORDER. PATIENT REPOSITIONED IN BED. PATIENTS SCDS IN PLACE. ASSESMENT COMPLETED. DR HAMILTON AT BEDSIDE AND UPDATED PATIENT AND THIS RN ON PLAN OF CARE. PATIENT DENIES ANY FURTHER NEEDS. PATIENT PLACED BACK ON BIPAP. CALL LIGHT IN REACH. BED ALARM ON FOR SAFETY.
--- NOTE | 2024-05-27 21:51 | NUR ---
PATIENT IS RESTING IN BED WITH EYES CLOSED ON BIPAP, RR 16. NAD NOTED. CALL LIGHT IN REACH. IV ABX COMPLETED INFUSING. PATIENT IS NOW SL PER ORDER.
--- NOTE | 2024-05-27 23:35 | NUR ---
PATIENT IS RESTING IN BED WITH EYES CLOSED ON BIPAP, RR 13. PATIENT APPEARS TO BE RESTING COMFORTABLY. SON IS NOW PRESENT IN ROOM. SON UPDATED ON PLAN OF CARE AND ALL QUESTIONS ANSWERED. PATIENTS SON DENIES ANY NEEDS. CALL LIGHT IN REACH.
[2024-05-28] VITALS (22 sets, daily range): BP systolic 95–153; BP diastolic 58–117
--- NOTE | 2024-05-28 01:08 | NUR ---
PATIENT REMOVED FROM BIPAP. PATIENT PLACED ON 8L HI FLOW NC. PATIENT PROVIDED SIPS OF WATER. PATIENT DENIES ANY PAIN OR SOB. PATIENT REPOSITIONED IN BED. PATIENT DENIES ANY FURTHER NEEDS AT THIS TIME. CALL LIGHT IN REACH.
--- NOTE | 2024-05-28 02:45 | NUR ---
PATIENT IS RESTING IN BED WITH EYES CLOSED, RR 13. NAD NOTED. CALL LIGHT IN REACH.
--- NOTE | 2024-05-28 04:15 | NUR ---
PATIENTS BEDDING CHANGED. PATIENTS ATTEND IS DRY AT THIS TIME. PATIENT REPOSITIONED IN BED. PATIENT REPORTS PAIN. WHEN ASKE WHERE THE PAIN IS PATIENT STATED "EVERYWHERE", PRN MEDICATION GIVEN PER ORDER. PATIENT PROVIDED SIPS OF WATER. PATIENT PROVIDED WARM BLANKET. SCDS IN USE. BILAT UPPER EXT ELEVATED ON PILLOWS. PATIENTS IVS FLUSHED AND SL X2. THIS RN ATTEMPTED PATIENT TO BED PLACED BACK ON THE BIPAP. PATIENT STATED "PLEASE DONT MAKE ME I CANT DO IT". PATIENT EDUCATED THAT IS WILL HELP HIS BREATHING. THIS RN ASKED PATIENT WHY HE IS UNABLE TO WEAR BIPAP. PATIENT STATED "IT HURTS". THIS RN OFFERED TO HAVE RT COME AND ADJUST MASK. PATIENT STATED "GODDAMMIT I AM NOT GONNA WEAR THAT THING". PATIENT REMAINS ON 8L VIA NC-HI FLOW. PATIENT DENIES ANY FURTHER NEEDS. CALL LIGHT IN REACH. PATIENTS SON ON COUCH AND DENIES ANY NEEDS.
--- NOTE | 2024-05-28 05:18 | NUR ---
LAB IN ROOM. PATIENT PROVIDED SIPS OF WATER. PATIENT DENIES ANY FURTHER NEEDS. CALL LIGHT IN REACH.
[2024-05-28 05:23] LABS: PH, VENOUS 7.429 (7.31-7.41)
[2024-05-28 05:25] LABS: BASOPHILS 0.2 % (0-2); EOSINOPHILS 0.3 % (0-6); HEMATOCRIT 34.5 % (35.0-50.0); HEMOGLOBIN 12.1 g/dL (12.0-18.0); LYMPHOCYTES 3.9 % (24-44); MCH 35.1 (27-36); MCV 100.4 fl (81-99); MONOCYTES 7.1 % (0-12); NEUTROPHILS 88.5 % (39-80); PLATELET COUNT 79 K/uL (140-440); RBC 3.43 M/ul (4.3-5.7); RDW 16.5 (10.5-15.0)
[2024-05-28 05:52] LABS: ALBUMIN 1.9 g/dL (3.4-5.0); ALBUMIN/GLOBULIN RATIO 0.43 (1.1-2.4); ANION GAP 7.6 (7-21); BILIRUBIN, TOTAL 2.3 mg/dL (0.2-1.0); BUN/CREATININE RATIO 24.51 (6.0-28.6); CALCIUM 8.7 mg/dL (8.5-10.1); CREATININE, SERUM 1.55 mg/dL (0.70-1.30); POTASSIUM 3.6 mmol/L (3.5-5.1); PROTEIN, TOTAL 6.3 g/dL (6.4-8.2)
--- NOTE | 2024-05-28 06:10 | NUR ---
PATIENT IS RESTING IN BED WITH EYES CLOSED, RR 13. NAD NOTED. PATIENT TITRATE TO 6L VIA NC-HI FLOW. NAD NOTED. CALL LIGHT IN REACH.
--- NOTE | 2024-05-28 08:13 | NUR ---
PATIENT AWAKE THIS AM AND NOTED TO BE YELLING AT RT TO STOP GIVINGBREATHING TX. PT DEMANDING THE MASK BE TAKEN OFF OF HIM. PT STILL WEARING THE OXYGEN AND SP02 WAS 100% ON 8L, AND TITRATED DOWN TO 6L WITH SP02 AT 95%. RT DOES STOP BREATHING TX AND PT EXPRESSES HIS FEAR AND CLAUSTERPHOBIA. PT ASKING FOR HIS SON, WHO IS CURRENTLY ASLEEP ON THE COUCH AND NOT SEEMING TO WAKE UP TO THIS LOUD NOISES IN ROOM. HR IN THE 80s. PT WAS ACCEPTING OF BREATHING TX THROUGH HANDHELD BREATHING TX. PT ASKING FOR WATER AND GIVEN A SMALL SIP. PT'S ABDOMEN IS DISTENDED. ALCALA CATH DRAINING CONCENTRATED YELLOW URINE. SCDs ARE ON. RT WAS ABLE TO TRANSITION TO VAPOTHERM. PT DID WEAR BIPAP SOME IN THE NIGHT, BUT REFUSED AFTER 0100 TO WEAR THE MASK. PT THEN ASKING FOR FOOD, BUT WITH FINDINGS OF ILEUS ON HIS KUB YESTERDAY, WILL HOLD ANY FOOD AT THIS TIME U ALLIE AVALOS CAN SPEAK WITH PATIENT FURTHER. EDEMA REMAINS FROM HIPS DOWN, AND IN ALL DEPENDENT AREAS. PT ORIENTED TO SELF, PLACE, BUT UNSURE OF YEAR OR DATE. REORIENTED TO ALL OF THESE. PT MORE CALM NOW. WILL CONTINUE TO MONITOR.
--- NOTE | 2024-05-28 09:13 | NUR ---
PATIENT'S SON AWOKEN WITH SOME DIFFICULTY BUT IS NOW AWAKE. INFORMED HIM THAT WE ARE WANTING HIM TO BE AWAKE SO WHEN THE DOCTOR ROUNDS ON HIM, HE CAN BE A PART OF THESE CONVERSATIONS. PATIENT RESTING ON VAPOTHERM AT THIS TIME, 25L AND 35% WITH SP02 OF 95%. IV LASIX DOSE GIVEN BUT LACTULOSE AND COLACE HELD. PT DOES HAVE ACTIVE BOWEL TONES.
--- NOTE | 2024-05-28 11:19 | NUR ---
SPOKE WITH PATIENT REGARDING DC PLAN. PATIENT CONTINUES TO DENY HOSPICE. STATES HE WOULD LIKE TO TRANSFER TO HIGHER LEVEL FACILITY IF ABLE. DR. HAMILTON NOTIFIED.
--- NOTE | 2024-05-28 11:28 | NUR ---
PATIENT IS NOW UP IN CHAIR AFTER WORKING WITH PT/OT. PATIENT IS SOMEWHAT FORGETFUL STILL, AND CONFUSED ABOUT THE OXYGEN TUBING HE IS WEARING AND THE OXYGEN PROBE. PT WANTING TO TAKE IT OFF AND THEN SAYS, "I NEED THE OXYGEN." EXPLAINED TO PATIENT THAT IT IS RIGHT THERE AND PLACED BACK ON HIM. HE THEN STATES, "YEA THAT'S WHAT I NEEDED." PT C/O PAIN IN HIS UPPER ABDOMEN/CHEST AREA. PT GIVEN PRN TYLENOL AT THIS TIME. PT'S SON HAS LEFT HIS FOSTER MOTHER FEDE CAME TO PICK HIM UP. PT STILL IN CHAIR BUT SEEMS UNCOMFORTABLE IN GENERAL IN CHAIR. PT NOW RECEIVING BREATHING TX WITH RT.
--- NOTE | 2024-05-28 13:22 | NUR ---
PATIENT HAVING ANXIETY WHILE SITTING IN CHAIR AND ASKING TO BE SAT UP, EVEN THOUGH HE WAS ALREADY SAT UP. HELPED PATIENT BACK TO BED. PATIENT THEN IN BED LAYING DOWN AND IMMEDIATELY WANTING TO SIT UP, STATING HE WAS SHORT OF BREATH. ENCOURAGED PATIENT THAT HE SHOULD WEAR THE BIPAP. PT PULLING AT THIS RN AND WANTING TO SIT UP. SP02 WAS 95% ON VAPOTHERM 25L AND 30%. PATIENT YELLING OUT SAYING HE IS FEELING VERY ANXIOUS, ASKING WHERE HIS FAMILY IS, CALLING FOR HIS SON KAEN DOS SANTOS. PRN MEDICATIONS AVAILABLE ARE PO DILAUDID OR IV ATIVAN. CALLED DR. HAMILTON TO CLARIFY WHICH MEDICAITON HE WOULD LIKE TO GIVE AT THIS TIME FOR HIS ANXIETY AND INSRUCTIONS REC'D TO GIVE IV ATIVAN. 0.5 MG IV ATIVAN GIVEN. WHILE TRYING TO PULL THIS MEDICATION, PATIENT STATES, "HURRY UP AND GIVE ME SOMETHING." THIS RN RESPONDED THAT I NEED TO GO GRAB IT FOR YOU AND HE STATES, "YOU AREN'T DOING SHIT." CALMLY REMINDED PATIENT THAT I AM HERE TO HELP HIM, AND HELP HIM THROUGH THIS ANXIOUS FEELING. PATIENT SETTLES DOWN AFTER ATIVAN AND ALLOWS THIS RN TO PLACE BIPAP ON. ABOUT 20 MINS AFTER THAT, DR. HAMILTON IN TO SEE PATIENT BUT HE IS NOT CONVERSING OR WILLING TO TALK AT THIS TIME, IGNORNING THE DOCTOR. PT NOT STAYING AWAKE. THEN BIPAP MASK REPLACED ON PATIENT AND HE STATES, "NO GET THAT MASK OFF OF ME" HE OPENS EYES AND COMMUNICATES. BIPAP KEPT OFF AND NASAL CANNULA PLACED ON PATIENT, CURRENTLY AT 4L AND SP02 IS 100%. WILL CONTINUE TO MONITOR.
--- NOTE | 2024-05-28 14:13 | NUR ---
PATIENT REMAINS SLEEPING AT THIS TIME WITH A HEART RATE IN THE 80s, NSR, SP02 100% ON 3 L NC AND LAST BP 105/61 (75). ALCALA DRAINING YELLOW URINE. SCDs ON. NO FAMILY PRESENT AT THIS TIME.
--- NOTE | 2024-05-28 14:50 | NUR ---
UR CONCURRENT REVIEW: MCG-DOES NOT MEET GL DAY 2. REMAINS IN NEED OF VAPOTHERM AND BIPAP ODS [facility] INPT 05/24/24 ORDER MATCHES REG WILL SEND UPDATED CLINICALS WHEN AVAILABLE PENDING POSSIBLE TRANSFER TO HIGHER LEVEL OF CARE 05/30/24
--- NOTE | 2024-05-28 15:59 | NUR ---
PATIENT RESTLESS AGAIN AND ASKING TO "SIT ME UP." PATIENT HELPED UP TO BSC AGAIN AND HAD A VERY SMALL BM AND FLATULENCE. PT THEN HELPED X2 PERSON TO CHAIR. PATIENT STILL MOANING IN CHAIR.
--- NOTE | 2024-05-28 18:14 | NUR ---
PATIENT HAS REMAINED VEYR RESTLESS IN THE LAST COUPLE OF HOURS. PT HAS BEEN UP AND DOWN AND UP AND TO SIDE OF BED, CHAIR, BEDSIDE COMMODE AND BACK TO BED. PT ALSO STATES HE NEEDS TO PEE. PT HAS ALCALA CATH THAT IS DRAINING YELLOW URINE. ALCALA CARE PROVIDED. PATIENT WAS BLADDER SCANNED TO ENSURE ALCALA IS DRAINING WELL AND ABOUT 46 ML PRESENT IN BLADDER. PT THEN SAYING HE IS HUNGRY BUT AFTER ONE BITE OF BROCCOLI SAYS HE DOESN'T WANT ANYMORE. PT ALSO EXPRESSING SHORTNESS OF BREATH. PT HAS BEEN ON 5 L NC AND IS NOW BACK ON BIPAP TO HELP WITH SOB. PT AGREEABLE TO WEAR IT AT THIS TIME BUT IS NOW PULLING IT OFF. PT REACHING FOR THINGS IN THE AIR THAT ARE NOT THERE.
--- NOTE | 2024-05-28 19:07 | NUR ---
PATIENT STILL VERY RESTLESS AND C/O FEELING THE NEED TO VOID. PT HELPED TO STAND AT BEDSIDE. PT'S ABDOMEN IS SO DISTENDED, TAUT AND EDEMATOUS. DR. HAMILTON CALLED AND CT SCAN OF CHEST/ABDOMEN/PELVIS IS NOW ORDERED. PATIENT OKAY TO HAVE THIS SCAN. CALLED IMAGING BUT THEY ARE NOT ABLE TO DO CT SCAN YET AND WILL LET US KNOW WHEN THEY CAN. PT SAYING SOME RANDOM THINGS, LIKE "HOW MANY MORE BOATS?" PT ALSO ASKING FOR WATER. WILL CONTINUE TO MONITOR.
--- NOTE | 2024-05-28 19:45 | NUR ---
REPORT RECEIVED FORM CLINT SORIANO, PT HAS JUST GOTTEN BACK FROM AN ATTEMPT AT A CT SCAN. PT IS OVERRALL VERY RESTLESS, TRYING TO GET OUT OF BED, DIFFICULT TO UNDERSTAND.
--- NOTE | 2024-05-28 20:05 | NUR ---
SON AND FEDE HAVE ARRIVED, DR HAMILTON IN TO SPEAK WITH THEM. PT AWAKE AND RESTLESS IN THE BED.
--- NOTE | 2024-05-28 21:14 | NUR ---
ZOEY REFLECTS AMS. HE IS ON A 6L SALTER HFNC OFF THE WALL. HOB IS ELEVATED,
--- NOTE | 2024-05-28 21:37 | NUR ---
CHAMOMILE TEA WITH FEW ICE CHIPS GIVEN TO PT. LIGHTS OUT PER PT CHOICE, TV ON.
--- NOTE | 2024-05-28 22:04 | NUR ---
PT RESTING WEARING THE BIPAP, SPO2 99%, RR 18, HR 100.
--- NOTE | 2024-05-28 22:30 | NUR ---
PT BECAME RESTLESS, PULLED BIPAP OFF, PLACED BACK ON NASAL CANNULA, REPOSITIONED UP IN BED.
[2024-05-28] MEDS ORDERED: CEFTRIAXONE SODIUM 2 GM VIAL ONE (22:35)
[2024-05-29] VITALS (26 sets, daily range): BP systolic 38–216; BP diastolic 69–137
--- NOTE | 2024-05-29 00:05 | NUR ---
PT RESTING IN BED WITH NASAL CANNULA IN PLACE, NOT RESTLESS AT THIS TIME.
--- NOTE | 2024-05-29 00:40 | NUR ---
PT HAS STARTED TO BECOME MORE AND MORE RESTLESS, WORDS ARE NOT MAKING SENSE. 1MG IV ATIVAN GIVEN PRN.
--- NOTE | 2024-05-29 01:34 | NUR ---
PT HAS BEEN MORE RESTFUL SINCE ATIVAN GIVEN. OCCASIONALLY STIRRING IN BED.
--- NOTE | 2024-05-29 02:57 | NUR ---
PT BECOMING RESTLESS AGAIN, MOANING AND TRYING TO GET SELF OUT OF BED. NOT ANSWERING ASSESSMENT QUESTIONS, HR UP TO 120'S, SATS 87-88% ON 5L/NC, SWITCHED TO BIPAP. PT CALM AT THIS TIME.
--- NOTE | 2024-05-29 03:45 | NUR ---
PT TOOK OFF BIPAP, VERY AGITATED. PLACED ONTO /SC.
--- NOTE | 2024-05-29 04:00 | NUR ---
PT HAS BECOME MORE RESTLESS AND AGITATED, HR UP TO 115-140'S AT TIMES, BPS ELEVATED. RESP VERY LABORED, SATS DOWN TO 80% ON NASAL CANNULA, BIPAP PLACED. CALL TO DR HAMILTON, WILL DO KUB AND CXR THIS AM, ORDER GIVEN FOR MORPHINE AND METOPROLOL 5MG IV.
[2024-05-29] MEDS ORDERED: METOPROLOL TARTRATE 5 MG/5 ML VIAL IV ONE (04:15)
[2024-05-29] MEDS ORDERED: MORPHINE SULFATE 4 MG/ML VIAL IV ONE (04:15)
--- NOTE | 2024-05-29 04:30 | NUR ---
PT CALMER AND MORE RELAXED AFTER MORPHINE GIVEN, HR DOWN TO 90'S AND BP WNL.
[2024-05-29 04:34] LABS: PH, VENOUS 7.435 (7.31-7.41)
[2024-05-29 04:35] LABS: BASOPHILS 0.1 % (0-2); EOSINOPHILS 0.3 % (0-6); HEMOGLOBIN 13.5 g/dL (12.0-18.0); LYMPHOCYTES 3.1 % (24-44); MCH 34.4 (27-36); MCHC 34.6 g/dl (30-36); MCV 99.6 fl (81-99); MONOCYTES 6.8 % (0-12); NEUTROPHILS 89.7 % (39-80); PLATELET COUNT 108 K/uL (140-440); RBC 3.92 M/ul (4.3-5.7); RDW 16.6 (10.5-15.0)
[2024-05-29 04:58] LABS: ALBUMIN 2.3 g/dL (3.4-5.0); ALBUMIN/GLOBULIN RATIO 0.48 (1.1-2.4); ANION GAP 8.4 (7-21); BILIRUBIN, TOTAL 2.8 mg/dL (0.2-1.0); BUN/CREATININE RATIO 25.64 (6.0-28.6); CALCIUM 8.8 mg/dL (8.5-10.1); CREATININE, SERUM 1.56 mg/dL (0.70-1.30); POTASSIUM 3.4 mmol/L (3.5-5.1); PROTEIN, TOTAL 7.1 g/dL (6.4-8.2)
--- NOTE | 2024-05-29 05:08 | NUR ---
PTS VITAL SIGNS HAVE IMPROVED, HR 80'S, BP 131/92, RR 16 SPO2 97%, PT WEARING BIPAP. HE IS CALM AND NO LONGER RESTLESS.
--- NOTE | 2024-05-29 05:45 | NUR ---
PT BECAME RESTLESS AND PULLING AT BIPAP AGAIN, IT WAS SWITCHED OVER TO NASAL CANNULA.
--- NOTE | 2024-05-29 06:00 | NUR ---
PTS LOOKS MUCH MORE DISTRESS, NOT TOLERATING BEING OFF BIPAP, SATS DOWN TO 80%, HR UP TO 120'S AND BPS ELEVATED AND PT IS VERY AGITATED, MOANING WITH VERY LABORED RESPIRATIONS. BIPAP REPLACED AND PT CALMS, BREATHING IMPROVES, HR AND BPS IMPROVE WELL.
[2024-05-29] MEDS ORDERED: MORPHINE SULFATE 4 MG/ML VIAL IV PRN ×3 (06:15→14:45)
--- NOTE | 2024-05-29 06:30 | NUR ---
PT REPOSITIONED, LINENS CHANGED, PT HAD LARGE AMOUNT OF FLATUS WHEN REPOSITIONED.
--- NOTE | 2024-05-29 06:55 | NUR ---
PT CONT TO WEAR BIPAP, HR 100, SPO2 95%, RR 24. RESTFUL AND CALM AT THIS TIME.
[2024-05-29] MEDS ORDERED: metroNIDAZOLE/SODIUM CHLORIDE 500 MG/100 ML PIGGYBACK IV SCH (08:00)
--- NOTE | 2024-05-29 08:00 | NUR ---
PATIENT VERY RESTLESS AND NOT TOLERATING BIPAP WELL AT THIS TIME. GAVE PRN DOSE OF MORPHINE FOR SOB/COMFORT. PATIENT VERY TENSE AND MOANING AT TIMES. PATIENTS SON IS SLEEPING ON THE COUCH. PATIETN REMAINS ON THE BIPAP AND RR-30'S AVERAGE. PATIENT SPO2 92%. ALCALA CATHETER IN PLACE.
[2024-05-29 08:15] LABS: INR 1.74 (0.80-1.30); PROTIME 20.3 Sec (11.2-14.2)
[2024-05-29] MEDS ORDERED: POTASSIUM CHLORIDE 40 MEQ,LIDOCAINE HCL 1% 40 MG in DEXTROSE 5% 250 ML IV ONE (09:00)
[2024-05-29] MEDS ORDERED: VANCOMYCIN PER PHARMACY PROTOCOL IV SCH (09:00)
[2024-05-29] MEDS ORDERED: LINEZOLID 600 MG BAG IV SCH (09:00)
[2024-05-29] MEDS ORDERED: CEFEPIME HCL 1 GM in SODIUM CHLORIDE 0.9% 100 ML IV SCH (09:00)
--- NOTE | 2024-05-29 09:10 | NUR ---
PATIENT ON BIPAP. PATIENT POTENTIALLY TRANSFERRING TO HIGHER LEVEL OF CARE PENDING ACCEPTANCE. NO NEEDS FROM CM AT THIS TIME.
[2024-05-29] MEDS ORDERED: CEFEPIME HCL 1 GM VIAL ONE ×3 (10:03→19:49)
--- NOTE | 2024-05-29 10:45 | NUR ---
PATIENT HAS REMAINED RESTLESS AND CONTINUES TO HAVE MINIMAL VERBAL COMMUNICATION. PATIENT PULLING AT LINES/TUBES AND MOVING LEGS OUT OF BED. PROVIDER WAS IN TO SEE PATIENT. PATIENTS SON REMAINS ASLEEP ON THE COUCH. PRN ATIVAN FOR AGITATION. [place]. PER MD STAFF CAN CONTACT [facility] FOR POSSIBLE TRANSFER D/T PATIENT NEEDING HIGHER LEVEL OF CARE AND CONSULT PRIOR GIVEN BY [facility]. [facility]
--- NOTE | 2024-05-29 12:30 | NUR ---
SPOKE WITH [facility] PROVIDERS AND RECOMENDATIONS GIVEN. PER MD PATIENT NEEDS TO HAVE A CARE CONFRENCE WITH FAMILY AND STAFF FOR GOALS OF CARE DISCUSSION. FAMILY NOTIFIED AND WILL BE HERE [place] 2PM. PATIENTS SON IN THE ROOM. PER PROVIDER HE RECOMMENDS PATIENT TO STILL HAVE A THROACENTECIS TO IMPROVE WORK OF BREATHING. PATIENT REMAINS RESTLESS AND ALERTED MENTATION AT THIS TIME.
[2024-05-29] MEDS ORDERED: FUROSEMIDE 100 MG/10 ML VIAL IV SCH (13:00)
--- NOTE | 2024-05-29 13:30 | NUR ---
PATIENT NEXT OF KIN GAVE CONSENT FOR A THORACENTESIS TO IMPROVE PATIENTS RESPIRATORY STATUS. PATIENT TOLERATED PROCEDURE WELL. PATIENT DID REMAIN WITHDRAWN, UNABLE TO PARTICIPATE IN CARES. PATIENT HAS NOT TALKED WITH STAFF TODAY. PATIENT WAS ABLE TO SIT WITH STAFF ASSIST AT THE EDGE OF BED. PATIENT ON VAPOTHERM AT 40L AND 80% FIO2 TO MAINTAIN OXYGENATION. PATIENT WORK OF BREATHING DID IMPROVE RADIOLOGIST WAS REMOVING FLUID. PATIENT STARTED TO EXPERINCE SOME COUGHING. PATIENT REPOSTIONED AFTER PROCEDURE WITH NEW LINEN PLACE AND NOW RESTING ON HIS BACK AT 45 DEGREES. PATIENT SCDS PLACED. PATIENT WOB INCREASED WHEN PLACED BACK ON BIPAP AFTER PROCEDURE. RT NOTIFIED AND IN TO CHECK ON PATIENT. PATIENT GRIMACING AND APPEARS UNCORMOFRTABLE. PRN DOSE OF MORPHINE GIVEN AT THIS TIME.
[2024-05-29] MEDS ORDERED: ATROPINE SULFATE 1% OPTH DROPS SL PRN (14:45)
[2024-05-29] MEDS ORDERED: ondansetron HCL 4 MG/2 ML VIAL IV PRN (14:45)
[2024-05-29] MEDS ORDERED: MORPHINE SULFATE 10 MG/ML VIAL IV PRN (14:45)
[2024-05-29] MEDS ORDERED: fentaNYL citrate 100 MCG/2 ML VIAL IV PRN (14:45)
[2024-05-29] MEDS ORDERED: LORazepam 2 MG/ML VIAL IV PRN (14:45)
[2024-05-29] MEDS ORDERED: ARTIFICIAL TEARS 15 ML BTL OU PRN (14:45)
--- NOTE | 2024-05-29 14:45 | NUR ---
CARE COFRENCE WITH PATIENTS FAMILY AND INTERDISIPLINARY TEAM MEMBERS. PER AFTER UPDATED FROM MD AND TEAM FAMILY WOULD LIKE TO PURSUE GOALS OF CARE TO MAKE PATIENT MORE COMFORTABLE AT THIS TIME. PATIENTS FAMILY IS GOING TO CALL AND UPDATE FAMILY AND SEE IF OTHERS WOULD LIKE TO COME VISIT BEFORE PATIENT IS TRANSTIONED FROM BIPAP. SEE EMAR FOR NEW ORDERS TO KEEP PATIENT MORE COMFORTABLE NEEDED. MARCELINO ANN IN TO PRAY WITH PATIENT. NO OTHER NEEDS FROM FAMILY AT THIS TIME.
--- NOTE | 2024-05-29 14:51 | NUR ---
PARTICIPATED IN CARE CONFERENCE WITH FAMILY, CASE MANAGEMENT, RT, CHRISTIE DARNELL AND DR. KIDD. SON KANE AND [id number] WERE PRESENT. DESCRIBED PT CONDITION AND PROGNOSIS. FAMILY EXPRESSED UNDERSTANDING AND CHOSE TO TRANSITION PT TO COMFORT CARE. REPAIRER ENGINE PRODUCTION PROVIDED SUPPORTIVE PRESENCE, HOSPITALITY, PRAYER. FAMILY EXPRESSED GRATITUDE, STATED THEY FELT WELL CARED FOR, REQUESTED PRAYERS BE SAID WITH PT. PROVIDED PRAYERS OF COMFORT AND COMMENDATION IN PT ROOM. PT NOT RESPONSIVE, BUT APPEARS TO BE COMFORTABLE IN BED WITH NO OBVIOUS SIGNS OF DISCOMFORT.
--- NOTE | 2024-05-29 15:53 | NUR ---
BIPAP ON SB. NC 6 LPM PLACED FOR COMFORT. 97% ON 6 LPM.
[2024-05-29] MEDS ORDERED: SCOPOLAMINE 1 MG/3 DAYS PATCH 1 EACH TDSY TD SCH (16:00)
[2024-05-29] MEDS ORDERED: VANCOMYCIN HCL 1,500 MG in DEXTROSE 5% 500 ML IV SCH (16:00)
--- NOTE | 2024-05-29 16:00 | NUR ---
REPORT RECEIVED FROM OF GOING NURSE. PATIENT RESTING IN BED WITH RT AT BEDSIDE.
[2024-05-29] MEDS ORDERED: FENTANYL 12 MCG/HR 1 EA TDSY TD SCH (16:22)
--- NOTE | 2024-05-29 16:35 | NUR ---
PATIENT RESTING IN BED. IV SITES REMAIN PATENT. PATIENT DROWSEY AT THIS TIME RESPONDS TO VERBAL STIMULI MINIMALLY. PATIENT IS CURRENTLY ON 6L OXYGEN VIA HIFLO NC. SPO2 WNL. RESPERIATINOS MID 20'S AT THIS TIME. PATIENT APPEARS TO HAVE A RELAXED FACIAL EXPRESSION AT THIS TIME. NOTED RESTLESSNESS AT TIMES. PATIENT CONTINUES WITH CRACKLES IN BILATERAL UPPER LOBES AND DIMINISHED LUNG SOUNDS IN BILATERAL LOWER LOBES. AFEBRIAL AT THIS TIME. URINE OUTPUT QUANITY SUFFICIENT. ABD VERONIQUE RARE/HYPOACTIVE BOWEL TONES. ABD DISTENDED AT THIS TIME. NOTED EDMEA REMAINS TO BLLE AND SCROTUM. CALL LIGHT WITHIN REACH. BED ALARM ON.
--- NOTE | 2024-05-29 17:33 | NUR ---
PATIENT RESTLESS IN BED, PRN ADMINSTERED PER ORDERS SEE MAR. NOTED IV SITE TO LEFT AC TO BE LEAKING. IV SITE DISCONTINUED. PATIENT SON AT BEDSIDE. BED ALARM IN PLACE. CALL LIGHT WITHIN REACH.
--- NOTE | 2024-05-29 18:15 | NUR ---
PATIENT RESTING COMFORTABLY IN BE. VSS, SPO2 WNL ON 6L HIFLO VIA NC. ALCALA CATHERTER DRAINAING YWLLOW URINE. IV ABX INFUSING WNL. CALL LIGHT WITHIN REACH BED ALARM ON .
--- NOTE | 2024-05-29 19:37 | NUR ---
REPORT RECEIVED FROM CHRISTIE BOOKER. PATIENT RESTING IN BED WITH EYES CLOSED. 2RN FENTANYL PATCH PLACEMENT VERIFICATION COMPLETED; PATCH IN PLACE ON LEFT DELTOID. SON KANE AT BEDSIDE ALONG WITH ANOTHER VISITOR.
--- NOTE | 2024-05-29 20:42 | NUR ---
VS AND ASSESSMENT CHARTED. PATIENT DOES NOT RESPOND TO NAME OR PAINFUL STIMULI. BLISTER NOTED TO LEFT MEDIAL THIGH APPROXIMATELY 1 INCH IN LENGTH. BLISTER IS INTACT AT THIS TIME. IV SITE PATIENT WITH + BLOOD RETURN. IV ABX INFUSING WITHOUT DIFFICULTLY. SON AND VISITORS REMAIN AT BEDSIDE.
--- NOTE | 2024-05-29 22:06 | NUR ---
PATIENT CONTIUES TO REST WITH EYES CLOSED; DOES NOT RESPOND TO VERBAL STIMULI. FLAGYL HUNG AND INFUSING. MARY MIDDLETON REMAINS AT BEDSIDE.
--- NOTE | 2024-05-29 23:37 | NUR ---
PATIENT NOTED TO BE MOANING. REPOSITIONED WITH PILLOW SUPPORT. PATIENT CONTINUED TO MOAN AND GRIMACE. MEDICATED WITH MORPHINE PER EMAR. IV REMAINS PATENT WITH + BLOOD RETURN. PATIENT'S SON KANE REMAINS AT BEDSIDE.
--- NOTE | 2024-05-29 23:56 | NUR ---
PATIENT RESTING WITH EYES CLOSED. NO MOANING OR GRIMACING NOTED AT THIS TIME. O2 SAT 97% ON 6L HFNC. PATIENT SR TO ST ON MONITOR WITH HR RANGING FROM 90S TO 102. MARY KANE RESTING IN ROOM.
[2024-05-30] VITALS (9 sets, daily range): BP systolic 111–136; BP diastolic 73–89
--- NOTE | 2024-05-30 00:33 | NUR ---
PATIENT NOTED TO BE GRIMACING AGAIN AND MOANING. TACHYPNEA NOTED WITH RR 25-30. REPOSITIONED AND PATIENT CONTINUED TO MOAN AND GRIMACE WITH CONSTANT FURROWED BROW. MEDICATED PER EMAR WITH 4MG MORPHINE.
--- NOTE | 2024-05-30 01:05 | NUR ---
PATIENT RESTING WITH EYES CLOSED. APPEARS RELAXED, NO MOANING OR GRIMACING NOTED. BROW NO LONGER FURROWED.
[2024-05-30] MEDS ORDERED: CEFEPIME HCL 1 GM VIAL ONE ×4 (01:50→19:42)
--- NOTE | 2024-05-30 02:01 | NUR ---
PATIENT RESTING WITH EYES CLOSED, APPEARS RELAXED. NO MOANING OR GRIMACING NOTED. IV ABX HUNG AND INFUSING WITHOUT DIFFICULTY.
--- NOTE | 2024-05-30 03:21 | NUR ---
PATIENT REPOSITIONED WITH PILLOW SUPPORT. HE BRIEFLY OPENED EYES AND MOANED BUT QUICKLY CLOSED EYES AND APPEARS TO BE BACK AT REST. MARY MIDDLETON REMAINS AT BEDSIDE.
--- NOTE | 2024-05-30 04:23 | NUR ---
PATIENT CONTINUES TO NOT RESPOND TO VERBAL STIMULI OR OPEN EYES. HE WILL SLIGHTY MOAN TO REPOSITIONING BUT THEN APPEARS TO GO BACK TO RESTING. OCCASIONAL HICCUP NOTED. IV ABX INFUSING WITHOUT DIFFICULTY. KANE REMAINS AT BEDSIDE. ALCALA CATHETER PATENT AND DRAINING DARK YELLOW TO AMRIK URINE.
--- NOTE | 2024-05-30 04:42 | NUR ---
PATIENT'S SON KANE CAME TO RN STATION TO ASK ABOUT VISITING HOURS. HE REPORTS HIS FATHER'S "GIRLFRIEND" IS COMING FROM [place] BUT WON'T ARRIVE UNTIL MIDNIGHT TONIGHT. EXPLAINED NORMAL CCU VISITING HOURS BUT EXCEPTIONS DUE TO HIS FATHER'S CIRCUMSTANCES.
--- NOTE | 2024-05-30 08:00 | NUR ---
REPORT RECIEVED FROM BRUSH POLISHER RN. PATIENT RESTING IN BED ON HIS SIDE. PATIENT ALCALA CATH PRESENT. PATIENT ON MONTIOR. PATIENT ON 6L NC. PATIENTS SON AT THE BEDSIDE. PATIENT REMAINS LETHARGIC. BED IN LOWEST POSITION. NO NEEDS AT THIS TIME.
--- NOTE | 2024-05-30 09:32 | NUR ---
TALKED WITH EFREM RATTLESNAKE FARMER FOR [facility]. SHE SAID HE IS APPROVED FOR [employer] AND THAT WE COULD PLACE THE PATIENT. CALLED ARELIS FOX AND WBT LEFT VOICEMAIL.
--- NOTE | 2024-05-30 10:00 | NUR ---
THIS RN IN AND PROVIDED ORAL CARE. PER PATIETNS SON HE IS USUALLY CLEAN SHAVED AND PATIENT CURRENTLY HAD FACIAL HAIR. PER FAMILY REQUEST SHAVED PATIENTS FACE. PATIENT TOLERATED WELL WITH NO WAKEFULLNESS TO STIMULATION. LINEN CHANGED AND HAIR COMBED. PATIENT APPEARS TO BE RESTING COMFORTABLY AT THIS TIME. PATIENTS SON DENIES ANY OTHER NEEDS AT THIS TIME.
--- NOTE | 2024-05-30 10:17 | NUR ---
TALKED TO FEDE ABOUT [facility] AND [facility]. PATIENT FAMILY MEMBER WOULD LIKE TO GO WITH [facility]. SENT THEM HOSPICE REFFERAL.
--- NOTE | 2024-05-30 10:46 | NUR ---
UR CONCURRENT REVIEW: [facility] INPT, VARIANCE ENTERED FOR GL DAY 2. REMAINS IN NEED OF OXYGEN WITH HIGH FLOW REQUIRED, IV ANTIBIOTICS, DIURESIS ODS [facility] INPT 05/24/24 ORDER MATCHES REG WILL SEND UPDATED CLINICALS TODAY POTENTIAL DC ON HOSPICE PENDING. 06/02/24
--- NOTE | 2024-05-30 12:45 | NUR ---
PATIENT CHECKED NO STOOL PRESENT. PATIENT REPOSITIONED TO HIS LEFT SIDE D/T INCREASED WORK OF BREATHING. NO IMPORVEMENT WITH REPOSITION. GAVE DOSE OF PRN MORPHINE. PATIENT MOANING AT TIMES. WAFFLE MATTRESS IN PLACE ON BED. PATIENT ORAL CARE DONE AND BED BATH GIVEN. ALCALA CATH CLEANED. DEODARNT APPLIED. PATIENTS SON AT THE BEDSIDE AND WAS OFFERED LUNCH BUT REFUSED.
--- NOTE | 2024-05-30 14:15 | NUR ---
PATIENT RESTING AT THIS TIME ON HIS SIDE. PATIENT ON MONITOR. ALCALA CATH PRESEMT WITH CLEAR YELLOW URINE. PATIENT HAD A GOOD REPSONSE TO LASIX WITH OUTPUT. PATIENT ON 5L NC WITH SPO2 92%. CASE MANAGEMENT IS WORKING WITH NEXT OF KIN AND UPDATED PATIENTS SON OF PLAN OF CARE TO DC TO FACILITY WITH HOSPICE.
--- NOTE | 2024-05-30 14:57 | NUR ---
patient accepted to [facility] on sunday. [facility] to do admission on sunday.
--- NOTE | 2024-05-30 15:33 | NUR ---
PATIENT RESTING IN BED. APPEARS TO BE COMFORTABLE. RESPIRATIONS EVEN AND UNLABORED. MEDICATIONS ADMINSTERED. IV SITE REMAINS PATENT AND WNL. CALL LIGHT WITHIN REACH.
--- NOTE | 2024-05-30 16:45 | NUR ---
PATIENT REPOSITIONED WITH PILLOW SUPORT AND PRN PAIN MEDICATIONS GIVEN FOR GROANING AND INCREASED WORK OF BREATHING. PATIENT REMAINS ON 5L NC. PATIENT WORK OF BREATHING, RR, AND HR ALL IMPROVE WITH PRN PAIN MEDICATIONS. PATIENT HAS REMAINED ASLEEP MOST OF THE DAY, WITH ONLY SEVEAL PERIODS OF RESTLESSNESS AND OCC. OPENS EYES WITH ORAL CARE BRIEFLY. NO FAMILY PRESENT AT THIS TIME. BED IN LOWEST POSITION. ABX INFUSING PER EMAR.
--- NOTE | 2024-05-30 18:22 | NUR ---
PATIENT ON HIS RIGHT SIDE. PATIENT TV ON WITH RADIO FOR COMFORT. PATIENT RR- EVEN AT 18. NO FAMILY PRESENT AT THIS TIME. ROOM CLEANED. I/O COMPLETED.
--- NOTE | 2024-05-30 19:25 | NUR ---
PATIENT'S SON ARRIVED TO RN STATION TO ASK IF NURSING STAFF CAN HOLD OFF ON PAIN MEDICATIONS PER PATIENT'S FRIEND'S REQUEST "SO THEY CAN TALK TO HIM". EXPLAINED THAT HE HASN'T RECENTLY HAD PAIN MEDICATION AND THEY MAY COME INTERACT WITH HIM BUT THAT HE MAY NOT RESPOND; PAIN MEDICATION WILL NOT BE WITHHELD SHOULD HIS FATHER NEED IT. KANE VERBALIZED UNDERSTANDING.
--- NOTE | 2024-05-30 19:36 | NUR ---
REPORT RECEIVED FROM ADE SORIANO. PATIENT RESTING IN BED WITH EYES CLOSED, DOES NOT RESPOND TO STIMULI. 2RN VERIFICATION OF FENTANYL PATCH COMPLETED. PATIENT'S SON KANE AT BEDSIDE.
--- NOTE | 2024-05-30 20:16 | NUR ---
PATIENT NOTED TO BE MOUTH BREATHING. O2 SATS DECREASED TO 85%. CHANGED O2 TO OXYMASK FROM SD WITH IMPROVEMENT TO 89-90%. CATH CARE COMPLETED. PATIENT REPOSITIONED IN BED. IV ABX HUNG AND INFUSING. MARY MIDDLETON REMAINS AT BEDSIDE.
--- NOTE | 2024-05-30 21:22 | NUR ---
PATIENT REPORTING PAIN 8/10, 4MG IV MORPHINE ADMINISTERED AT THIS TIME. PATIENT REPORTS FEELING TOO HOT, THIS RN NOTED HE HAD THREE COTTON BLANKETS FROM THE BLANKET WARMER ON WELL THE BED SHEET AND BED SPREAD. EXTRA BLANKETS REMOVED AND PATIENT FAN PROVIDED. PATIENT REPORTS NO OTHER NEEDS AT THIS TIME.
--- NOTE | 2024-05-30 22:07 | NUR ---
PATIENT RESTING IN BED WITH EYES CLOSED. FACIAL EXPRESSION APPEARS RELAXED, NO MOANING OR RESTLESSNESS NOTED. SON AT BEDSIDE ALONG WITH OTHER VISITORS. IV ABX INFUSING WITHOUT DIFFICULTY.
--- NOTE | 2024-05-30 22:43 | NUR ---
ORAL CARE COMPLETED. PATIENT ATTEMPTED TO BITE AT ORAL SWAB. MINIMALLY OPENED EYES BUT CLOSED AND APPEARED TO RETURN TO REST.
--- NOTE | 2024-05-30 23:05 | NUR ---
VISITORS TO NURSES STATION AND ASKED TO PROVIDE ORAL CARE AGAIN IN AN ATTEMPT TO STIMULATE PATIENT. ORAL CARE PROVIDED HOWEVER, PATIENT BITES AT MOUTH SWAB AND GROANS DURING CARE. EXPLAINED TO SON AND VISITORS THAT ORAL CARE APPEARS TO BE AGITATING HIM AT THIS TIME. ENCOURAGED VISITORS TO CONTINUE TO TALK TO HIM.
--- NOTE | 2024-05-30 23:14 | NUR ---
CALL RECEIVED FROM DR. BEJARANO; UPDATED ON PATIENT STATUS. ORDERS RECEIVED FOR AM CBC, CMP, MAGNESIUM LEVEL, PHOSPHORUS LEVEL AND AMMONIA LEVEL. ORDERS RECEIVED FOR PCXR AND SINGLE VIEW ABDOMEN FOR AM.
--- NOTE | 2024-05-30 23:53 | NUR ---
VS CHARTED. VISITORS LEFT FOR THE NIGHT. SON KANE REMAINS AT BEDSIDE; REPORTS GIRLFRIEND IS NOT ARRIVING TONIGHT AND IT IS UNKNOWN WHEN SHE WILL GET HERE SHE HAD AN ISSUE WITH HER DOG AND GETTING ON A PLANE. PATIENT REPOSITIONED HE FAVORS RIGHT SIDE. FACIAL EXPRESSION APPEARS REPLACED. RR 18-20, NO GRIMACING OR GROANING NOTED. NO RESTLESSNESS NOTED.
[2024-05-31] MEDS ORDERED: CEFEPIME HCL 1 GM VIAL ONE (01:35)
--- NOTE | 2024-05-31 01:54 | NUR ---
PATIENT REPOSITIONED WITH PILLOW SUPPORT; UNDERPAD CHECK CLEAN, NO STOOL NOTED. ALCALA REMAINS PATENT AND DRAINING DARK YELLOW URINE. PATIENT MOANED BRIEFLY AFTER REPOSITIONING BUT QUICKLY CALMED. REMAINS ON OXYMASK AT 6L WITH O2 SAT 88-90%. SINUS TACH ON MONITER WITH RATE IN THE LOW 100S, 100-108. RR 23. KANE REMAINS AT BEDSIDE.
--- NOTE | 2024-05-31 04:38 | NUR ---
PATIENT NOTED TO HAVE AN INCREASE IN HR TO 160, NON-SUSTAINED AND RETURNS DOWN TO 110. ABDOMEN APPEARS MORE DISTENDED IN THE RUQ AND LUQ THAN PREVIOUS ASSESSMENT. KANE AT BEDSIDE AND REPORTS PATIENT HAD NOT BEEN MOANING OR RESTLESS. DR. BEJARANO NOTIFIED AND UPDATED ABOUT HR AND INCRESED ABDOMINAL DISTENTION. ORDERS REVEIVED TO DO AM PCXRY AND SINGLE VIEW ABDOMEN NOW. XRY TECH NOTIFIED.
--- NOTE | 2024-05-31 04:47 | NUR ---
PATIENT NOTED TO BE MOANING AND RESTLESS WITH SOME GRIMACING NOTED. PATIENT MEDICATED WITH 4MG MORPHINE PER EMAR.
--- NOTE | 2024-05-31 05:30 | NUR ---
PATIENT RESTING QUIETLY WITH EYES CLOSED. APPEARS RELAXED, NO GRIMACING OR MOANING NOTED AT THIS TIME. SON AT BEDSIDE.
[2024-05-31 05:51] LABS: BASOPHILS 0.3 % (0-2); EOSINOPHILS 0.1 % (0-6); HEMATOCRIT 38.7 % (35.0-50.0); HEMOGLOBIN 13.5 g/dL (12.0-18.0); MCH 33.7 (27-36); MCHC 34.8 g/dl (30-36); MCV 96.9 fl (81-99); MONOCYTES 7.8 % (0-12); NEUTROPHILS 88.8 % (39-80); PLATELET COUNT 107 K/uL (140-440); RBC 3.99 M/ul (4.3-5.7); RDW 16.1 (10.5-15.0)
[2024-05-31 05:56] LABS: ALBUMIN 1.7 g/dL (3.4-5.0); ALBUMIN/GLOBULIN RATIO 0.36 (1.1-2.4); ANION GAP 5.3 (7-21); BILIRUBIN, TOTAL 3.8 mg/dL (0.2-1.0); BUN/CREATININE RATIO 26.98 (6.0-28.6); CALCIUM 8.4 mg/dL (8.5-10.1); CREATININE, SERUM 1.26 mg/dL (0.70-1.30); MAGNESIUM 1.5 mg/dL (1.8-2.4); PHOSPHORUS, INORGANIC 2.2 mg/dL (2.5-4.9); POTASSIUM 4.3 mmol/L (3.5-5.1); PROTEIN, TOTAL 6.4 g/dL (6.4-8.2)
[2024-05-31 06:14] VITALS: BP 133/96
[2024-05-31 08:00] VITALS: BP 132/99
--- NOTE | 2024-05-31 08:00 | NUR ---
PATIENT REPORT RECIVED FROM PAPER CONE GRADER RN. PATIENT ON 8L OXYMASK WITH SPO2 88%. THIS RN IN TO DO ASSESSMENT AND SPO2 DECREASED TO 83% THIS AM. INCREASED OXYGEN TO 15L OXYMASK FOR COMFORT. PATIENT RR- 28-30. AWIATING MD TO COME SEE APTIENT FOR GOALS TO BE DISCUSSED AND CARE PLAN SET. PATIENTS SON IS ASLEEP ON THE COUCH. ALCALA IN PLACE. PATIENT REMAINS LETHARGIC. PATIENT WILL OPEN EYES OCC. TO STIMULI BUT DOES SUSTAIN.
[2024-05-31] MEDS ORDERED: SODIUM PHOSPHATE 30 MMOL in DEXTROSE 5% 250 ML IV ONE (08:30)
[2024-05-31] MEDS ORDERED: MAGNESIUM SULFATE 2 GM/50 ML BAG IV ONE (08:30)
[2024-05-31] MEDS ORDERED: ALBUMIN HUMAN 25% 100 ML BTL IV ONE (08:30)
[2024-05-31] MEDS ORDERED: LACTULOSE 10 GM/15 ML ML PR SCH (09:00)
--- NOTE | 2024-05-31 09:23 | NUR ---
MD IN TO SEE PATIENT THIS AM AND DISSCUSS PLAN OF CARE AND GOALS. PATIENT OXYGENATION IS WORSENING WITH PLANS FOR DC ON SUNDAY TO HOSPICE. MD EVALUATED PATIENT AND CALLED PATIENTS NEXT OF KIN TO UPDATE OF PATIENTS DELINE. PER MD STOP MEDICATIONS THAT WERE JUST ORDERED THIS AM AND WILL FOCUS MORE ON PATIENTS COMFORT AND WORK OF BREATHING. MD TRIED TO WAKE PATIENT SON AT THE BEDSIDE AND HE OPENED HIS EYES AND ROLLED OVER AND FELL BACK TO SLEEP. PATIENT RR- LABORED WITH RATES 28-30. PRN DOSE OF MORPHINE GIVEN FOR WORK OF BREATHING AND COMFORT.
--- NOTE | 2024-05-31 12:15 | NUR ---
PATIENT RESTING ON HIS SIDE AT THIS TIME. PATIETNS SON SLEEPING ON THE COUCH. NO NEEDS AT THIS TIME. PATIENT RR EVEN AND 22 RATE.
--- NOTE | 2024-05-31 14:45 | NUR ---
PATIENT MORE RESTLESS AND WORK OF BREATHING INCRESED PRN MORPHINE GIVEN FOR COMFORT. PATIENT RR NOW 18 AND LESS LABORED A TTHIS TIME. PATIENTS FAMILY IN AND UPDATED ON STATUS. PATIENT OCCASIONALLY OPENS EYES TO STIMULI. PATIETN POSITIONED FOR COMFORT.
--- NOTE | 2024-05-31 16:15 | NUR ---
patient rr increaded to 30's. patient repositioned and patient moaning. patients son is in the room at this time. prn morphine dose given for comfort.
--- NOTE | 2024-05-31 16:15 | NUR ---
[facility] WAS CALLED IN TO PRAY WITH PATIENT AND HIS FAMILY. JAZZMINE IN TO VISIT WITH FAMILY.
--- NOTE | 2024-05-31 18:15 | NUR ---
FAMILY REQUESTED [facility]. JAZZMINE IN TO VISIT WITH FAMILY AND PRAY WITH PATIENT AND FAMILY.
--- NOTE | 2024-05-31 18:35 | NUR ---
HS CALLED TO ASK ME TO COME IN TO PRAY WITH FAMILY. SON AND FRIEND WERE IN THE ROOM WHEN I ENTEREDS. PT WAS NOT AWAKE. TALKED WITH FAMILY/FRIEND. PROVIDED [facility]ST[facility] CARE. THEY EXPRESSED WHEN HE DIES THEY WOULD LIKE [facility]. PRAYED.
--- NOTE | 2024-05-31 19:36 | NUR ---
PATIENTS RR INCRESED TO 34 AND INCREASED WOB. PRN MORPHINE GIVEN FOR COMFORT. PATIENTS SON AT THE BEDSIDE AND DENIES ANY NEEDS AT THIS TIME.
--- NOTE | 2024-05-31 19:50 | NUR ---
REPORT RECEIVED FROM CHRISTIE BOOKER. 2RN FENTANYL PATCH VERIFICATION COMPLETED. PATIENT RESTING IN BED WITH EYES CLOSED. RESPIRATIONS EVEN AND UNLABORED.
--- NOTE | 2024-05-31 20:47 | NUR ---
PATIENT DOES NOT RESPOND TO VERBAL STIMULI. REPOSITIONED WITH PILLOW SUPPORT AND PATIENT GROANS SLIGHTLY THEN GOES BACK TO REST. MOTTLEING NOTED TO BILAT HANDS. SCDS REMOVED FOR COMFORT. PATIENT IS ON RA WITH RR 19-20. SPO2 READING AT 59%, HR 120, SINUS TACH. SON KANE REPORTS HE WILL BE GONE FOR A COUPLE OF HOURS. INFORMED HIM I WILL CALL HIM AND EMILIANA IF ANYTHING CHANGES. FACE WASHED AND CATH CARE COMPLETED.
--- NOTE | 2024-05-31 22:20 | NUR ---
KANE BACK AT BEDSIDE. PATIENT CONTINUES TO REST QUIETLY WITH EYES CLOSED. NO GROANING OR GRIMACING NOTED. RR21, HR 120, SPO2 62% RA.
--- NOTE | 2024-05-31 23:40 | NUR ---
PATIENT NOTED TO HAVE A DECREASE IN HR DOWN TO THE 30S. RESPIRATIONS ARE AGONAL AND MINIMAL. KANE AT BEDSIDE AND THIS RN DISCUSSED THAT HIS FATHER PASSING APPEARS TO BE SOON. KANE CALLED HIS FOSTER MOM, EMILIANA. THIS RN SPOKE TO HER AND EMILIANA TO COME IN TO BE WITH KANE. OFFERED SPIRITUAL CARE TO KANE AND HE DECLINED. OFFERED TO SIT WITH KANE AND HE ALSO DECLINED. ALLOWING KANE TO HAVE ALONE TIME BUT HE ENDORSED THAT HE WILL CALL ME IF NEEDED.
--- NOTE | 2024-06-01 00:02 | NUR ---
PATIENT NOTED TO BE ASYSTOLE AT 2354. THIS RN IN ROOM. NO HEART OR LUNG SOUNDS HEARD. NO PALPABLE PULSE NOTED. PUPILS NON-REACTIVE. KANE REMAINS IN ROOM AND UPDATED ON APPARENT PASSING. CALL PLACED TO DR. BEJARANO AT 00:00. HE WILL BE TO UNIT SHORTLY. ELECTRIC METER REPAIRER HELPER ABBY NOTIFIED. EMILIANA NOW HERE AT BEDSIDE WITH KANE.
--- NOTE | 2024-06-01 00:13 | NUR ---
KANE AND EMILIANA HAVE LEFT. EM[facility]IANA CONFIRMED [facility] PRIOR TO LEAVING.
--- NOTE | 2024-06-01 00:20 | NUR ---
SCOPALAMINE PATCH REMOVED AND PLACED IN SHARPS BIN. FENTANYL PATCH REMOVED AND PLACED IN SHARPS BIN; WITNESSED BY SHIP CLEANER ABBY Moreno RN.
--- NOTE | 2024-06-01 00:29 | NUR ---
NO PERSONAL ITEMS FOUND IN ROOM. IV REMOVED FROM RIGHT AC WITH TIP INTACT. PRESSURE DRESSING PLACED.
--- NOTE | 2024-06-01 01:33 | NUR ---
[facility] PICKED UP PATIENT. JAMIL FROM ADMITTING NOTIFIED OF TOD AND [facility] [employer] TIME.
[2024-06-01] MEDS ORDERED: fentaNYL 1 EACH TDSY TD SCH (09:00)
== END 2024-05-31 23:54 | DRG 432 ==
LOC: ED 22:10 → MS 22:11 → CCU 05-25 08:29 → MS 05-31 15:34 → CCU 05-31 15:50
PROVIDERS: Emergency Medicine; Family Medicine; Student in an Organized Health Care Education/Training Program; ADMIT Student in an Organized Health Care Education/Training Program; ATTEND Student in an Organized Health Care Education/Training Program
PROC: 5A09357 Assistance with Respiratory Ventilation, Less than 24 Consecutive Hours, Continuous Positive Airway Pressure (ICD-10-PCS; 2024-05-23)
PROC: 30233J1 Transfusion of Nonautologous Serum Albumin into Peripheral Vein, Percutaneous Approach (ICD-10-PCS; 2024-05-23)
PROC: 3E03329 Introduction of Other Anti-infective into Peripheral Vein, Percutaneous Approach (ICD-10-PCS; 2024-05-23)
PROC: 0W993ZZ Drainage of Right Pleural Cavity, Percutaneous Approach (ICD-10-PCS; principal; 2024-05-24)
DX: K74.60 Unspecified cirrhosis of liver (principal); J96.01 Acute respiratory failure with hypoxia; E87.20 Acidosis, unspecified; R18.8 Other ascites; N17.9 Acute kidney failure, unspecified; J91.8 Pleural effusion in other conditions classified elsewhere; J81.1 Chronic pulmonary edema; B19.20 Unspecified viral 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 coma; T50.1X6A Underdosing of loop [high-ceiling] diuretics, initial encounter; Z66 Do not resuscitate; Z51.5 Encounter for palliative care; K72.10 Chronic hepatic failure without coma; K76.82 Hepatic encephalopathy; F12.90 Cannabis use, unspecified, uncomplicated; I10 Essential (primary) hypertension; J45.909 Unspecified asthma, uncomplicated; F17.210 Nicotine dependence, cigarettes, uncomplicated; Z88.5 Allergy status to narcotic agent; Z79.899 Other long term (current) drug therapy; Z98.890 Other specified postprocedural states; Z91.148 Patient's other noncompliance with medication regimen for other reason; K74.69 Other cirrhosis of liver
CPT/HCPCS: 32555; 36415; 36592; 51702; 71045; 74018; 76705; 80048; 80053; 81001; 82140; 82803; 82945; 83605; 83615; 83735; 83986; 84100; 84155; 84157; 84300; 85025; 85610; 85730; 87040; 87205; 89051; 93306; 94640; 94644; 94660; 94668; 94762; 94799; 96365; 96375; 97162; 97166; 97530; 99285-25; 99406; A6590; A9270; J0456; J0692; J0696; J0780; J1171; J1940; J2020; J2060; J2270; J2405; J2543; J2919; J3370; J3475; J3480; J3490; J7060; P9047